=== PATIENT | male | born 1960 | race Caucasian/White ===

== ENCOUNTER 2019-08-10 15:10 | Inpatient (IN) | payer MEDICARE, MEDICAID, SELFPAY ==
[2019-08-10] VITALS (52 sets, daily range): BP systolic 64–154; BP diastolic 37–74; PULSE 84–125; RESP 6–26; TEMP 37.3–39.4; O2SAT 88–94; BMI 36.3
--- NOTE | 2019-08-10 16:03 | XRR_ITS ---
PROCEDURE INFORMATION: Exam: XR Chest, 1 View Exam date and time: 08/10/2019 4:20 PM Age: 58 years old Clinical indication: Shortness of breath; Additional info: Sepsis TECHNIQUE: Imaging protocol: XR of the chest Views: 1 view. COMPARISON: No relevant prior studies available. FINDINGS: Lungs: Mild elevation of the right hemidiaphragm. No focal consolidation. No pulmonary edema. Pleural space: No pleural effusion. No pneumothorax. Heart/Mediastinum: The cardiac silhouette is mildly enlarged. Mediastinal contours are unremarkable. Vasculature: Vascular calcifications in the aorta. Bones/joints: Unremarkable for age. XR/XR chest 1V portable [id number] IMPRESSION: 1. No acute cardiopulmonary process. 2. Incidental/nonacute findings are listed in the report.
--- NOTE | 2019-08-10 16:03 | CTR_ITS ---
PROCEDURE INFORMATION: Exam: CT Left Lower Extremity With Contrast; Lower Leg Exam date and time: 08/10/2019 4:47 PM Age: 58 years old Clinical indication: Cellulitis; Lower leg; Left; Additional info: Cellulitis, ? osteo, ? nec fasc TECHNIQUE: Imaging protocol: CT of the Left lower extremity with intravenous contrast was performed. Exam focused on the lower leg. 3D rendering: MIP reconstructed images were created and reviewed. Radiation optimization: All CT scans at this facility use at least one of these dose optimization techniques: automated exposure control; mA and/or kV adjustment per patient size (includes targeted exams where dose is matched to clinical indication); or iterative reconstruction. Contrast material: OMNI 300; Contrast volume: 95 ml; Contrast route: INTRAVENOUS (IV); COMPARISON: No relevant prior studies available. RADIATION DOSE METRICS: Total DLP (mGy-cm): 1443.17 FINDINGS: Bones/joints: No acute fracture. No dislocation. Degenerative changes at the left knee, left ankle, and left foot. No lytic or sclerotic bony lesions. Soft tissues: [id number] subcutaneous and soft tissue edema around the ankle and the foot, suspicious for cellulitis/soft tissue infection. No loculated fluid collections to suggest an abscess. Multiple small foci of soft tissue and subcutaneous emphysema at the plantar surface of the hindfoot and extending superior and medial to the calcaneus (series 5, images 197-211). Findings raise suspicion for necrotizing fasciitis. Multiple foci of amorphous calcification in the left calf and left foot. Findings may represent sequela of remote trauma. CT/CT lower leg LT w con [id number] IMPRESSION: 1. Findings suspicious for necrotizing fasciitis at the plantar surface of the left hindfoot and extending superior and medial to the left calcaneus. 2. Findings suspicious for cellulitis involving the left ankle and left foot. No abscess. 3. No evidence for osteomyelitis. MRI without and with contrast may be obtained if there is continuing clinical concern for osteomyelitis. If the patient has any contradiction for MRI, 3 phase bone scan in conjunction with white blood cell scan may be obtained. 4. Incidental/nonacute findings are listed in the report. Radiation Dose CTDIVOL = (mGy): DLP = 1443.17 (mGy-cm)
[2019-08-10 16:26] LABS: Basophils # 0.1 10^3/uL (0.0-0.1); Basophils % 0.2 %; Hemoglobin 15.6 g/dL (11.7-16.6); Lymphocytes # 0.8 10^3/uL (0.8-4.8); Lymphocytes % 3.8 %; Mean Corpuscular HGB Conc 33.9 g/dL (30.0-36.0); Mean Corpuscular Hemoglobin 31.4 pg (28.0-34.0); Mean Corpuscular Volume 92.6 fL (80-94); Mean Platelet Volume 10.6 fL (7.4-10.4); Monocytes # 1.3 10^3/uL (0.2-0.9); Monocytes % 6.5 %; Nucleated Red Blood Cells % 0 %; Platelet Count 268 10^3/cmm (130-400); Red Blood Count 4.97 10^6/uL (4.1-5.3); Red Cell Distribution Width 12.6 % (12.1-15.1); White Blood Count 20.3 10^3/uL (4.0-10.0)
[2019-08-10] MEDS: piperacillin-tazobactam 3.375 GM in sodium chloride 0.9% (plus) 50 ML IV (16:37)
[2019-08-10 16:40] LABS: Alanine Aminotransferase 10 U/L (0-41); Albumin Level 4.2 g/dL (3.5-5.2); Alkaline Phosphatase 128 IU/L (40-130); Anion Gap 19.4 (5-19); Aspartate Amino Transferase 16 U/L (0-40); Blood Urea Nitrogen 20 mg/dL (6-20); C Reactive Protein 210.9 mg/L (0.0-4.9); Calcium 9.9 mg/dL (8.5-10.5); Carbon Dioxide 26 mmol/L (22-29); Chloride 88 mmol/L (98-107); Globulin 4.2 g/dL (1.3-4.6); Glomerular Filtration Rate 56.5 mL/min (90-130); Glucose 444 mg/dL (65-115); Osmolality Calculated 284 mOsm/kg (285-295); Potassium 4.4 mmol/L (3.5-5.1); Sodium 129 mmol/L (136-145); Total Bilirubin 0.9 mg/dL (0.15-1.2); Total Protein 8.4 g/dL (6.6-8.7)
[2019-08-10 16:41] LABS: Lactate (Lactic Acid level) 2.6 mmol/L (0.5-2.2)
--- NOTE | 2019-08-10 16:44 | ED_ITS ---
HPI - Allergic Reaction General: Chief complaint: Allergic Reaction Stated complaint: stepped on nail Time Seen by Provider: 08/10/19 15:49 Source: patient Mode of arrival: ambulatory Limitations: no limitations History of Present Illness: HPI narrative: 58-year-old gentleman who is a diabetic with peripheral neuropathy presents to the emergency department with chills, rigor, and feeling unwell. He is a poorly controlled diabetic and about 2 days ago he stepped on a nail without knowing it. The nail was in his foot, left foot for about 2 days before his noticed. No nausea or vomiting. MD complaint: other (chills) Associated symptoms: Deny abdominal pain, nausea or vomiting Review of Systems General: Reports: 10 or more systems reviewed and unremarkable except in HPI and below Const: Reports: fever(s), chills and body aches Card: Denies: palpitations, irregular heart rhythm, edema or swelling of feet/ankles Resp: Denies: dyspnea, productive cough or non-productive cough GI: Denies: abdominal pain, nausea or vomiting : Denies: flank pain, dysuria, urinary frequency, urinary urgency or urinary hesitancy Musc: Denies: neck pain, back pain or extremity swelling Skin/Breast: Denies: rash, pruritus or erythema Neuro: Denies: headache(s), numbness in extremities or weakness in extremities Endo: Denies: polyuria, polydipsia or tired all the time PFSH ED PFSH: Medical History (Updated 08/10/19 @ 22:03 by Hannah Root MD, [facility] [place]) CKD stage 2 due to type 2 diabetes mellitus Diabetes mellitus with hyperglycemia, with long-term current use of insulin Diabetic peripheral neuropathy associated with type 2 diabetes mellitus History of stroke hx of embolic CVA in 2006 Hypercholesteremia Hypertension Morbid obesity Surgical History (Updated 08/10/19 @ 19:11 by Olive Aguilar MD) Amputation of right index finger in 2010 History of amputation of right foot History of knee surgery bilateral Family History Father CAD (coronary artery disease) Mother Diabetes Other Stroke Social History (Updated 08/10/19 @ 19:01 by Olive Aguilar MD) Smoking and tobacco status: current every day smoker smokeless tobacco Alcohol intake: never Lives independently: Yes Marital status: History of recent travel: No Physical Exam Const: COMMON NORMALS: no acute distress, average body habitus, patient oriented x3, no limitations, healthy appearing, alert and well nourished GENERAL APPEARANCE: ill appearing HENMT: COMMON NORMALS: normocephalic, atraumatic and moist oral mucous membranes HEAD & SCALP: normocephalic and atraumatic Eye: COMMON NORMALS: Equal, round and reactive pupils present, EOMs intact bilaterally, conjunctivae normal and no scleral icterus CONJUNCTIVA: Yes conjunctivae normal PUPIL: Yes Equal, round and reactive pupils present Resp: COMMON NORMALS: normal respiratory effort, No retractions, No use of accessory muscles, clear to auscultation bilaterally and percussion normal AUSCULTATION: clear to auscultation bilaterally PERCUSSION: percussion normal Cardio: COMMON NORMALS: regular rate, regular rhythm, S1 normal heart sound present, S2 normal heart sound present, No gallops present (Cardio), No clicks present (Cardio), No murmurs present (Cardio), No rub (Cardio) and Peripheral pulses 2+ throughout RATE: regular rate RHYTHM: regular rhythm HEART SOUNDS: S1 normal heart sound present and S2 normal heart sound present PERIPHERAL PULSES: Peripheral pulses 2+ throughout GI: COMMON NORMALS: Normal to inspection, nondistended, normoactive bowel sounds present, Soft to palpation, non-tender, No hepatosplenomegaly present, no masses and no bruits PALPATION: Yes Soft to palpation and Yes No hepatosplenomegaly present : COMMON NORMALS: Yes no CVA tenderness BLADDER/KIDNEY EXAM: Yes no CVA tenderness Back/Pelvis: COMMON NORMALS: no CVA tenderness Extremity: COMMON NORMALS: full ROM, capillary refill normal and no pedal edema NARRATIVE EXTREMITY EXAM: Left lower extremity is larger than the right lower extremity. There is increased warmth in the left lower extremity compared to the right. He has a puncture wound to be heel of his left foot. There is surrounding erythema and some crepitus palpated on the plantar surface of his heel. No drainage from the puncture wound. LEFT LOWER EXTREMITY: Yes lower leg Neuro: COMMON NORMALS: patient oriented x3 SENSORIUM/ORIENTATION: Yes alert Skin: COMMON NORMALS: no rashes or lesions noted, turgor normal, no jaundice, no petechiae and no mottling GENERAL SKIN EXAM: no rashes or lesions noted and turgor normal Course Consultations: Consultation #1: Dr. Mehta, who's supervisor home restoration service for foot and ankle. She states that she does not perform surgery for necrotizing fasciitis so we need to get the general surgeon to do the surgery Time: 18:30 Consultation #2: Dr. Bush, surgeon. He kindly accepted to take the patient to surgery today. But have the hospitalist admit the patient. Time: 18:34 Consultation #3: Dr. Aguilar, hospitalist. She kindly accepted the patient to her service. Time: 18:38 Vital Signs: Vital signs: Vital Signs Temperature 99.3 F 08/10/19 20:15 Pulse Rate 96 08/10/19 21:20 Respiratory Rate 7 L 08/10/19 21:20 Blood Pressure 64/42 08/10/19 21:20 Pulse Oximetry 91 08/10/19 21:20 MDM - Allergic Reaction MDM Narrative: Medical decision making narrative: 58-year-old diabetic patient who presents with features consistent with necrotizing fasciitis. He was taken emergently to the OR for surgical debridement and subsequent admission to the ICU. He is septic. Medical Records: Attestation: I reviewed the patient's medical records. Lab Data: Attestation: I reviewed the patient's lab results. Labs: Lab Results 08/10/19 08/10/19 08/10/19 Range/Units 16:15 16:15 16:15 WBC 20.3 H (4.0-10.0) 10^3/ uL RBC 4.97 (4.1-5.3) 10^6/u L Hgb 15.6 (11.7-16.6) g/dL Hct 46.0 (42.0-52.0) % MCV 92.6 (80-94) fL MCH 31.4 (28.0-34.0) pg MCHC 33.9 (30.0-36.0) g/dL RDW 12.6 (12.1-15.1) % Plt Count 268 (130-400) 10^3/c mm MPV 10.6 H (7.4-10.4) fL Neut % (Auto) 89.0 % Lymph % (Auto) 3.8 % Wise % (Auto) 6.5 % Eos % (Auto) 0.0 % Baso % (Auto) 0.2 % Neut # (Auto) 18.0 H (1.8-7.7) 10^3/u L Lymph # (Auto) 0.8 (0.8-4.8) 10^3/u L Wise # (Auto) 1.3 H (0.2-0.9) 10^3/u L Eos # (Auto) 0.0 (0.0-0.8) 10^3/u L Baso # (Auto) 0.1 (0.0-0.1) 10^3/u L Nucleated RBC % (a uto) 0 % Nucleated RBCs # 0.0 /100WBC Sodium 129 L (136-145) mmol/L Potassium 4.4 (3.5-5.1) mmol/L Chloride 88 L (98-107) mmol/L Carbon Dioxide 26 (22-29) mmol/L Anion Gap 19.4 H (5-19) BUN 20 (6-20) mg/dL Creatinine 1.3 H (0.7-1.2) mg/dL GFR Calculation 56.5 L (90-130) mL/min Glucose 444 H (65-115) mg/dL POC Glucose (70-110) mg/dL Calculated Osmolal ity 284 L (285-295) mOsm/k g Lactate 2.6 H (0.5-2.2) mmol/L Calcium 9.9 (8.5-10.5) mg/dL Total Bilirubin 0.9 (0.15-1.2) mg/dL AST 16 (0-40) U/L ALT 10 (0-41) U/L Alkaline Phosphata se 128 (40-130) IU/L C-Reactive Protein 210.9 H (0.0-4.9) mg/L Total Protein 8.4 (6.6-8.7) g/dL Albumin 4.2 (3.5-5.2) g/dL Globulin 4.2 (1.3-4.6) g/dL 08/10/19 08/10/19 Range/Units 16:43 19:10 WBC (4.0-10.0) 10^3/ uL RBC (4.1-5.3) 10^6/u L Hgb (11.7-16.6) g/dL Hct (42.0-52.0) % MCV (80-94) fL MCH (28.0-34.0) pg MCHC (30.0-36.0) g/dL RDW (12.1-15.1) % Plt Count (130-400) 10^3/c mm MPV (7.4-10.4) fL Neut % (Auto) % Lymph % (Auto) % Wise % (Auto) % Eos % (Auto) % Baso % (Auto) % Neut # (Auto) (1.8-7.7) 10^3/u L Lymph # (Auto) (0.8-4.8) 10^3/u L Wise # (Auto) (0.2-0.9) 10^3/u L Eos # (Auto) (0.0-0.8) 10^3/u L Baso # (Auto) (0.0-0.1) 10^3/u L Nucleated RBC % (a uto) % Nucleated RBCs # /100WBC Sodium (136-145) mmol/L Potassium (3.5-5.1) mmol/L Chloride (98-107) mmol/L Carbon Dioxide (22-29) mmol/L Anion Gap (5-19) BUN (6-20) mg/dL Creatinine (0.7-1.2) mg/dL GFR Calculation (90-130) mL/min Glucose (65-115) mg/dL POC Glucose 389 270 (70-110) mg/dL Calculated Osmolal ity (285-295) mOsm/k g Lactate (0.5-2.2) mmol/L Calcium (8.5-10.5) mg/dL Total Bilirubin (0.15-1.2) mg/dL AST (0-40) U/L ALT (0-41) U/L Alkaline Phosphata se (40-130) IU/L C-Reactive Protein (0.0-4.9) mg/L Total Protein (6.6-8.7) g/dL Albumin (3.5-5.2) g/dL Globulin (1.3-4.6) g/dL Critical Care Time Critical Care Time: Critical Care Time: Yes Total Critical Care Time: 30 Attestation: This case had a high probability of a clinically significant, sudden, or life threatening deterioration of this patient's condition which required my full and direct attention, intervention and personal management. Discharge Plan Discharge Patient Disposition: Admitted As Inpatient Admit Provider: Olive Aguilar Clinical Impression: Necrotizing fasciitis Sepsis Qualifiers: Sepsis type: sepsis due to unspecified organism Sepsis acute organ dysfunction status: without acute organ dysfunction Qualified Code(s): A41.9 - Sepsis, unspecified organism Condition: Stable Interventions: ED Discharge Assessment Last Done: 08/10/19 19:05 ED Charges Last Done: 08/10/19 19:05 Discharge Date/Time: 08/10/19 19:00 Coding Level of Care Code ED Match Up Person for Chg Fwd Exam Comprehensive
[2019-08-10 16:46] LABS: Glucose Point of Care 389 mg/dL (70-110)
[2019-08-10] MEDS: iohexol 300 mg/mL 100 mL Btl 95 ML IV (17:19)
[2019-08-10] MEDS: levofloxacin-dextrose 5 % 750 MG/150 ML PREMIX 100 MG IV (17:46)
[2019-08-10] MEDS: sodium chloride 0.9% 1,000 ML 999 ML IV (17:47)
--- NOTE | 2019-08-10 18:35 | PM.CONSULT ---
Providers/Reason For Consult Consulting Physican/Specialty*: Jose Bush MD Reason for Consult*: Left diabetic foot infection with associated necrotizing soft tissue infection Requesting Physcian: Dr Johnson Attending Physician: Jose Bush MD Primary Care Provider: Thuan Hanks MD History of Present Illness History of Present Illness Chief Complaint: My left foot hurts History of present illness: Mr Yoandy Clemens III is a pleasant 58 year old male obese with associated multiple medical comorbidities including diabetes mellitus type 2, hypertension, hyperlipidemia and other associated medical comorbidities including history of transmetatarsal amputation of the right foot due to complicated diabetic foot infection, presents today to the emergency department with worsening symptoms of left foot as he stepped on a nail couple of days ago as his symptoms got worse he came to the ER seeking medical advice and further work-up showed that the patient has necrotizing soft tissue infection per CT scan images no evidence of retained foreign bodies, general surgery was consulted for further evaluation and potential management. Patient reports fevers at home and at the ER was recorded to be 103 Patient was seen in the emergency department in room(8) ED scan left lower extremity showed: FINDINGS: Bones/joints: No acute fracture. No dislocation. Degenerative changes at the left knee, left ankle, and left foot. No lytic or sclerotic bony lesions. Soft tissues: [id number] subcutaneous and soft tissue edema around the ankle and the foot, suspicious for cellulitis/soft tissue infection. No loculated fluid collections to suggest an abscess. Multiple small foci of soft tissue and subcutaneous emphysema at the plantar surface of the hindfoot and extending superior and medial to the calcaneus (series 5, images 197-211). Findings raise suspicion for necrotizing fasciitis. Multiple foci of amorphous calcification in the left calf and left foot. Findings may represent sequela of remote trauma. CT/CT lower leg LT w con [id number] IMPRESSION: 1. Findings suspicious for necrotizing fasciitis at the plantar surface of the left hindfoot and extending superior and medial to the left calcaneus. 2. Findings suspicious for cellulitis involving the left ankle and left foot. No abscess. 3. No evidence for osteomyelitis. MRI without and with contrast may be obtained if there is continuing clinical concern for osteomyelitis. If the patient has any contradiction for MRI, 3 phase bone scan in conjunction with white blood cell scan may be obtained. 4. Incidental/nonacute findings are listed in the report. Patient had arterial duplex back in 2017 that showed: Supernormal resting ABIs bilaterally PVR waveforms showing some blunting of dicrotic notch with a normal amplitude CONCLUSIONS Features may suggest mild peripheral arterial disease with no significant obstruction Patient is not updated on tetanus and I did ask the ER team to update the patient with prior to surgery. Review of Systems General: Reports: 10 or more systems reviewed and unremarkable except in HPI and below Meds/Allergies Home Medications and Allergies Home Medications Medication Instructions Recorded Confirmed Last Taken Type aspirin 325 mg tablet 325 mg PO DAILY 05/09/19 08/10/19 08/10/19 History gabapentin 800 mg tablet 800 mg PO BID 05/09/19 08/10/19 08/10/19 History hydrocodone 5 mg-acetaminophen 325 1 tab PO TID PRN 05/09/19 08/10/19 08/10/19 History mg tablet linagliptin 5 mg tablet 5 mg PO DAILY #90 tab 05/09/19 08/10/19 08/10/19 Rx lisinopril 20 mg tablet 20 mg PO DAILY 05/09/19 08/10/19 08/10/19 History paroxetine HCl 20 mg tablet 20 mg PO BID tab 05/09/19 08/10/19 08/10/19 History pravastatin 40 mg tablet 40 mg PO DAILY 05/09/19 08/10/19 08/09/19 History insulin aspar prot-insulin aspart 30 unit SUBCUT BID 30 Days #18 ml 08/08/19 08/10/19 08/10/19 Rx 100 unit/mL (70-30) subcutaneous pen insulin glargine 100 unit/mL (3 40 unit SUBCUT DAILY 30 Days #15 ml 08/08/19 08/10/19 08/10/19 Rx mL) subcutaneous pen Allergies Allergy/AdvReac Type Severity Reaction Status Date / Time sulfamethoxazole Allergy ALGY-Rash Verified 08/10/19 18:38 [From Bactrim] trimethoprim [From Bactrim] Allergy ALGY-Rash Verified 08/10/19 18:38 vancomycin Allergy ALGY-Rash Verified 08/10/19 18:38 Current Medications Current Medications Generic Name Dose Route Start Last Admin Trade Name Freq PRN Reason Stop Dose Admin Sodium Chloride 1,000 mls @ 999 mls/hr 08/10/19 17:00 08/10/19 17:47 Sodium Chloride 0.9% IV 08/10/19 19:00 999 mls/hr .Q1H1M LASHELL Administration PFSH Acute PFSH: Medical History (Updated 08/10/19 @ 19:00 by Olive Aguilar MD) Diabetes mellitus with hyperglycemia, with long-term current use of insulin Diabetic peripheral neuropathy associated with type 2 diabetes mellitus History of stroke hx of embolic CVA in 2006 Hypercholesteremia Hypertension Morbid obesity Surgical History (Updated 08/10/19 @ 19:00 by Olive Aguilar MD) Amputation of right index finger in 2010 History of amputation of right foot History of knee surgery bilateral Family History Father CAD (coronary artery disease) Mother Diabetes Other Stroke Social History (Updated 08/10/19 @ 19:01 by Olive Aguilar MD) Smoking and tobacco status: current every day smoker smokeless tobacco Alcohol intake: never Lives independently: Yes Marital status: History of recent travel: No Vitals/I&O/Wt Last Vital Signs Temp 103.0 F H 08/10/19 17:46 Pulse 112 H 08/10/19 17:46 Resp 22 H 08/10/19 17:46 BP 100/60 08/10/19 17:46 Pulse Ox 88 L 08/10/19 18:05 Weight last 48 hrs Weight 268 lb Physical Exam Narrative: EXAM NARRATIVE: Patient is conscious alert oriented X3 BMI 36 Head and neck examination PERRLA no masses no cervical lymphadenopathy no jaundice Cardiac examination audible S1-S2 no murmurs no gallops no arrhythmias Chest is clear bilateral,abscence of Rhonchi or wheezes,no surgical emphysema Abdomen nontender nondistended soft no organomegaly guarding or rigidity/no signs of peritonitis Right metatarsal amputation without complication Left foot shows cellulitic changes towards the left calcaneal region 5 x 7 cm in diameter, tender to touch with a central scab likely the site of the nail penetrated, clinically no detected crepitus. 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 Left dorsalis pedis and posterior tibial arteries palpable +2 Capillary refill less than 2-second Data Micro: Micro: Microbiology 08/10/19 16:27 Blood Culture - Pr eliminary Blood SPECIMEN [facility] 06/20/20 16:15 Blood Culture - Pr eliminary Blood SPECIMEN [facility] A&P Assessment and plan (1) Necrotizing soft tissue infection: After thorough history physical examination and reviewing the chart and images with my personal interpretation of the CT scan I did grief counsellor the patient for incision and drainage of left diabetic foot infection including an abscess clinically appreciated and necrotizing soft tissue changes. Patient understands the potential risks benefits indications and alternatives and also understand the potential need for future surgical interventions and the potential complication that can lead to amputee. Given the fact that the patient has leukocytosis and has been tachycardic and running fevers of [address] to the CT scan findings I will elect to take the patient urgently to the OR for surgical debridement. I appreciate Dr. Aguilar's input for medical management of patient's medical comorbidities including diabetes mellitus Recommend highly to start the patient on broad-spectrum antibiotic Status: Acute Consult Attestations Medical Necessity Statement: Per hospitalist Time Spent in Patient Care: (>than 50% of time spent in counselling and/or direct pt care on unit). Coding Level of Care Code Acute Obstetrical Tech for Curtis Elliott Diagnoses Necrotizing soft tissue infection M79.89
[2019-08-10] MEDS: tetanus-diphtheria tox (adult) 0.5 mL SDV IM (18:52)
--- NOTE | 2019-08-10 18:56 | P.HP_ITS ---
Providers/Chief Complaint Admitting Physician: Olive Aguilar MD Primary Care Provider: Thuan Hanks MD Chief Complaint: stepped on nail History of Present Illness Yoandy Clemens III is a 58 year old male with PMHx of IDDM type II complicated by peripheral neuropathy, CKD stage 2, Morbid obesity, HTN, Dyslipidemia; presents from home for evaluation of elevated blood glucose as well as increasing left foot pain, swelling and redness. He reports having stepped on a nail approximat cherry 2 days ago but due to diminished sensation in his feet did not realize this at that time until later in the day when he took off his shoes and socks and noticed a wound at the bottom of his foot. Since then the foot has had increased redness, swelling, and pain with weight-bearing. His ex- gave him a dose of amoxicillin that she had left over as well as a dose of hydrocodone for pain control. On checking his blood sugars today he was up in the 400-500 range which is significantly higher than his baseline of 180s to 200s. He has not been feeling well and has had fever/chills though has not checked his temperature at home. He is somewhat lethargic during my assessment in the ER, e x- is at bedside providing some collateral information. Work-up so far has revealed significant leukocytosis with a white count of 20.3, hemoglobin of 15.6, sodium of 129, BUN of 20, creatinine of 1.3, blood glucose of 444, lactate of 2.6, CRP of 210.9. He is hypotensive, tachycardic, and febrile with a T-max of 103F thereby noted to be septic. Chest x-ray is unremarkable, CT of the left lower extremity shows findings consistent with cellulitis and suspicion for necrotizing fasciitis. ER physician has contacted Dr. Bush who is at bedside currently and will take the patient emergently for an incision and drainage of the left foot. So far patient has received a dose of Levaquin and Zosyn, 2 L NS bolus. Due to need for continued resuscitation, sepsis and need for improved blood glucose control patient will be admitted to the ICU for closer monitoring. Review of Systems Const: Reports: change in appetite (decreased appetite) and fatigue; Denies: fever(s) or chills Eyes: Denies: change in vision ENMT: Reports: dry mouth Card: Denies: chest pain, swelling of feet/ankles or lightheadedness Resp: Reports: productive cough (green sputum); Denies: dyspnea GI: Denies: abdominal pain, nausea, vomiting, hematemesis or hematochezia : Reports: urinary frequency; Denies: dysuria Musc: Denies: back pain Skin/Breast: Denies: rash Neuro: Reports: weakness in extremities; Denies: numbness in extremities Psych: Denies: anxiety Medications/Allergies Home Medications Medication Instructions Recorded Confirmed Last Taken Type aspirin 325 mg tablet 325 mg PO DAILY 05/09/19 08/10/19 08/10/19 History gabapentin 800 mg tablet 800 mg PO BID 05/09/19 08/10/19 08/10/19 History hydrocodone 5 mg-acetaminophen 325 1 tab PO TID PRN 05/09/19 08/10/19 08/10/19 History mg tablet linagliptin 5 mg tablet 5 mg PO DAILY #90 tab 05/09/19 08/10/19 08/10/19 Rx lisinopril 20 mg tablet 20 mg PO DAILY 05/09/19 08/10/19 08/10/19 History paroxetine HCl 20 mg tablet 20 mg PO BID tab 05/09/19 08/10/19 08/10/19 History pravastatin 40 mg tablet 40 mg PO DAILY 05/09/19 08/10/19 08/09/19 History insulin aspar prot-insulin aspart 30 unit SUBCUT BID 30 Days #18 ml 08/08/19 08/10/19 08/10/19 Rx 100 unit/mL (70-30) subcutaneous pen insulin glargine 100 unit/mL (3 40 unit SUBCUT DAILY 30 Days #15 ml 08/08/19 08/10/19 08/10/19 Rx mL) subcutaneous pen Allergies Allergy/AdvReac Type Severity Reaction Status Date / Time sulfamethoxazole Allergy ALGY-Rash Verified 08/10/19 18:38 [From Bactrim] trimethoprim [From Bactrim] Allergy ALGY-Rash Verified 08/10/19 18:38 vancomycin Allergy ALGY-Rash Verified 08/10/19 18:38 PFSH Acute PFSH: Medical History (Updated 08/10/19 @ 19:17 by Olive Aguilar MD) CKD stage 2 due to type 2 diabetes mellitus Diabetes mellitus with hyperglycemia, with long-term current use of insulin Diabetic peripheral neuropathy associated with type 2 diabetes mellitus History of stroke hx of embolic CVA in 2006 Hypercholesteremia Hypertension Morbid obesity Surgical History (Updated 08/10/19 @ 19:11 by Olive Aguilar MD) Amputation of right index finger in 2011 History of amputation of right foot History of knee surgery bilateral Family History Father CAD (coronary artery disease) Mother Diabetes Other Stroke Social History (Updated 08/10/19 @ 19:01 by Olive Aguilar MD) Smoking and tobacco status: current every day smoker smokeless tobacco Alcohol intake: never Lives independently: Yes Marital status: History of recent travel: No Vitals/I&O/Wt Last Vital Signs Temp 103.0 F H 08/10/19 17:46 Pulse 112 H 08/10/19 17:46 Resp 22 H 08/10/19 17:46 BP 100/60 08/10/19 17:46 Pulse Ox 88 L 08/10/19 18:05 Weight last 48 hrs Weight 121.563 kg Physical Exam Const: COMMON NORMALS: no acute distress GENERAL APPEARANCE: cooperative, comfortable and ill appearing (somewhat) NUTRITIONAL APPEARANCE: obese morbidly obese ORIENTATION/CONSCIOUSNESS: Yes lethargic HENMT: COMMON NORMALS: normocephalic, atraumatic and hearing grossly normal bilaterally HEAD & SCALP: normocephalic and atraumatic MOUTH: moist mucous membranes abnormal Details: parched Eye: COMMON NORMALS: Equal, round and reactive pupils present, EOMs intact bilaterally and conjunctivae normal CONJUNCTIVA: Yes conjunctivae normal PUPIL: Yes Equal, round and reactive pupils present Neck/C-Spine: COMMON NORMALS: full ROM GENERAL: Yes normal visual inspection and Yes trachea midline Chest: CHEST: Yes Symmetrical chest wall rise Resp: COMMON NORMALS: normal respiratory effort, No retractions, No use of accessory muscles and clear to auscultation bilaterally EFFORT & INSPECTION: Yes able to speak in complete sentences, Yes symmetric chest movement and No tachypneic AUSCULTATION: clear to auscultation bilaterally OTHER: -on RA Cardio: COMMON NORMALS: regular rhythm, S1 normal heart sound present, S2 normal heart sound present and No murmurs present (Cardio) RATE: tachycardic RHYTHM: regular rhythm HEART SOUNDS: S1 normal heart sound present and S2 normal heart sound present GI: COMMON NORMALS: Normal to inspection, nondistended, normoactive bowel sounds present, Soft to palpation and non-tender INSPECTION: Yes central obesity PALPATION: Yes Soft to palpation Back/Pelvis: COMMON NORMALS: thoracic and lumbar spine normal to inspection Extremity: COMMON NORMALS: normal to inspection, full ROM and no clubbing, cyanosis or edema; negative for no pedal edema NARRATIVE EXTREMITY EXAM: -s/p R foot amputation -L foot: well-circumscribed puncture wound with surrounding erythema, warmth to touch; no fluctuance, no drainage, no odor; some streaking up just below medial ankle; diminished sensation (peripheral neuropathy) Neuro: COMMON NORMALS: moves all extremities, no focal motor deficits and no sensory deficits noted SENSORIUM/ORIENTATION: Yes lethargic Psych: COMMON NORMALS: mental status grossly normal, Normal thought process present, cooperative, normal affect and speech normal SPEECH: Yes normal speech THOUGHT PROCESS: Normal thought process present Skin: COMMON NORMALS: no rashes or lesions noted, no jaundice, no petechiae an d no mottling GENERAL SKIN EXAM: no rashes or lesions noted WOUNDS: Yes wounds noted (L foot) Sepsis: Is patient septic: Yes Focused sepsis exam performed: Yes Date exam was performed: 08/10/19 Time exam was performed: 18:30 Data : 08/10/19 16:15 08/10/19 16:15 Micro: Microbiology 08/10/19 16:27 Blood Culture - Preliminary Blood SPECIMEN COLLECTED 08/10/19 16:15 Blood Culture - Preliminary Blood SPECIMEN COLLECTED A&P Assessment and plan (1) Necrotizing soft tissue infection: -noted L foot pain, edema, erythema after puncture wound (stepped on a nail) 2 days ago -CRP-210.6; noted leukocytosis with neutrophilic predominance, lactic acidosis, tachycardic, hypotensive, febrile (103 F), tachypnea so currently septic -imaging reviewed with noted suspicion for necrotizing fasciitis at plantar surface of left hindfoot and extending to superiorly and medially the left calcaneus as well as cellulitis involving the left ankle and left foot, no noted evidence of abscess or osteomyelitis -Surgery consult by Dr. Bush appreciated; will be taken to the OR this evening -has received dose of Levaquin, Zosyn; continue broad-spectrum IV antibiotics -Tetanus dose given -Resuscitation with 2 L IVF; continue maintenance IVF hydration -f/u blood cx -trend WBC -close monitoring of vital signs -pain control as needed -PT evaluation tomorrow; NWB LLE Status: Acute (2) Diabetes mellitus with hyperglycemia, with long-term current use of insulin: -check A1c -Accucheks, ISS, scheduled insulin, hypoglycemia precautions -consistent carb diet as tolerated post-op -hold oral hypoglycemics -anticipate hyperglycemia with active infection Status: Chronic Qualifiers: Diabetes mellitus type: type 2 Qualified Code(s): E11.65 - Type 2 diabetes mellitus with hyperglycemia; Z79.4 - intermediate teacher (current) use of insulin (3) Diabetic peripheral neuropathy associated with type 2 diabetes mellitus: -resume gabapentin Status: Chronic (4) TASIA (acute kidney injury): -TASIA on CKD stage 2 -IVF hydration -monitor renal function, avoid nephrotoxins, renally dose meds Status: Acute (5) Morbid obesity: -BMI-36 kg/m2 Status: Chronic (6) Hypertension: -hypotensive currently and receiving fluid resuscitation -hold ACEi due to hypotension and renal impairment -monitor vital signs Status: Chronic Qualifiers: Hypertension type: essential hypertension Qualified Code(s): I10 - Essential (primary) hypertension (7) History of stroke: -resume ASA post op -resume statin Status: Chronic (8) Hypercholesteremia: -resume statin Status: Chronic (9) History of transmetatarsal amputation of right foot: Status: Chronic (10) Onychodystrophy: Status: Chronic (11) CKD stage 2 due to type 2 diabetes mellitus: -CKD stage 2, baseline Cr wnl Status: Chronic Additional A&P Information -Hyponatremia, increased AG; on IVF, repeat labs in AM -GI ppx with PPI -DVT ppx with heparin -Dispo: home; likely with HH -Code status: FULL code -ICU admission due to sepsis, need for continued fluid resuscitation Attestations Medical Necessity Statement*: Yoandy Clemens III's hospital stay will require greater than 2 midnights for management of left foot necrotizing soft tissue i nfection with associated sepsis requiring IV fluid hydration, broad-spectrum IV antibiotic coverage and emergent incision and drainage. Time Spent in Patient Care: Greater than 35 minutes (>than 50% of time spent in counselling and/or direct pt care on unit) . Coding Level of Care Code Acute Dispatcher Maintenance for Chg Fwd Diagnoses Necrotizing soft tissue infection M79.89 Diabetes mellitus with hyperglycemia, with long-term current use of insulin E11.65; Z79.4 Diabetes mellitus type: type 2 Diabetic peripheral neuropathy associated with type 2 diabetes mellitus E11.42 TASIA (acute kidney injury) N17.9 Morbid obesity E66.01 Hypertension I10 Hypertension type: essential hypertension History of stroke Z86.73 Hypercholesteremia E78.00 History of transmetatarsal amputation of right foot Z89.431 Onychodystrophy L60.3 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 Sepsis Event Note Evaluation Current stage of sepsis: sepsis Initial hypotension due to sepsis/infection: MAP < 65 mmHg Possible source: skin/soft tissue and wound (Left foot) Focused Exam Vital Signs Temp Pulse Pulse Resp BP BP Pulse Ox 08/10/19 18:05 88 L 08/10/19 17:46 103.0 F H 112 H 22 H 100/60 94 08/10/19 15:37 103 F H 125 H 18 154/74 93 Respiratory exam: Present CTAB; Absent accessory muscle use Cardiovascular exam: Present S1, S2 and tachycardia Date exam was performed: 08/10/19 Time exam was performed: 19:16 Problem List (1) Necrotizing soft tissue infection: Status: Acute (2) Diabetic peripheral neuropathy associated with type 2 diabetes mellitus: Status: Chronic (3) Morbid obesity: Status: Chronic (4) History of transmetatarsal amputation of right foot: Status: Chronic (5) Onychodystrophy: Status: Chronic (6) Diabetes mellitus with hyperglycemia, with long-term current use of insulin: Status: Chronic (7) Hypertension: Status: Chronic (8) History of stroke: Status: Chronic Comment: hx of embolic CVA in 2006 (9) Hypercholesteremia: Status: Chronic (10) CKD stage 2 due to type 2 diabetes mellitus: Status: Chronic (11) TASIA (acute kidney injury): Status: Acute
--- NOTE | 2019-08-10 19:06 | ANES.PREANE2 ---
Pre-Anesthetic Assessment Pre-Anesthetic Assessment: Height/Weight: Height 1.83 m Weight 121.563 kg Temp Pulse Resp BP Pulse Ox 103.0 F H 112 H 22 H 100/60 88 L 08/10/19 17:46 08/10/19 17:46 08/10/19 17:46 08/10/19 17:46 08/10/19 18:05 Proposed Procedure: Operation Date: 08/10/19 19:10 Proposed Procedures p Debridement(Left) - Jose Bush MD Familial anesthetic complications: none Was Beta Philippe taken within 24 hours: N/A Last intake: milk at 1300. Soda at 1500 Social: Social History: Tobacco (chew in ED) and No alcohol Exam: Pre-Anes Outpt Exam: alert, oriented x 3, clear to auscultation bilaterally and regular rate & rhythm Airway: Submandibular: WNL Cervical ROM: WNL MP: 3 Dentition: Full (poor multiple chipped decayed) Pulmonary: Pulmonary: WOLFF and Sleep apnea CV/HEM: CV/HEM: HTN and PVD : : None reported Hepatic: Hepatic: None reported GI: GI: GERD (OTC meds controlled) Metabolic: Metabolic: DM Musc/skel: Musc/skel: Weakness Neuropsych: Neuropsych: CVA (2006. no residual) Anesthetic Plan: ASA status: 3E Anesthesia: Anesthesia Evaluation, General and MAC (versed and fentanyl and pt has neuropathy ) Risk of > 500 ml blood loss (7ml/kg in children): No PFSH Anesthesia PFSH: Medical History (Updated 08/10/19 @ 19:13 by Olive Aguilar MD) Diabetes mellitus with hyperglycemia, with long-term current use of insulin Diabetic peripheral neuropathy associated with type 2 diabetes mellitus History of stroke hx of embolic CVA in 2006 Hypercholesteremia Hypertension Morbid obesity Surgical History (Updated 08/10/19 @ 19:11 by Olive Aguilar MD) Amputation of right index finger in 2010 History of amputation of right foot History of knee surgery bilateral Family History Father CAD (coronary artery disease) Mother Diabetes Other Stroke Social History (Updated 08/10/19 @ 19:01 by Olive Aguilar MD) Smoking and tobacco status: current every day smoker smokeless tobacco Alcohol intake: never Lives independently: Yes Marital status: History of recent travel: No Data Anesthesia CBC & Chem 7: 08/10/19 16:15 08/10/19 16:15 Other Labs: Laboratory Results - last 48 hr 08/10/19 08/10/19 08/10/19 16:15 16:15 16:15 WBC 20.3 H RBC 4.97 Hgb 15.6 Hct 46.0 MCV 92.6 MCH 31.4 MCHC 33.9 RDW 12.6 Plt Count 268 MPV 10.6 H Neut % (Auto) 89.0 Lymph % (Auto) 3.8 [place] % (Auto) 6.5 Eos % (Auto) 0.0 Baso % (Auto) 0.2 Neut # (Auto) 18.0 H Lymph # (Auto) 0.8 [place] # (Auto) 1.3 H Eos # (Auto) 0.0 Baso # (Auto) 0.1 Nucleated RBC % (auto) 0 Nucleated RBCs # 0.0 Sodium 129 L Potassium 4.4 Chloride 88 L Carbon Dioxide 26 Anion Gap 19.4 H BUN 20 Creatinine 1.3 H GFR Calculation 56.5 L Glucose 444 H POC Glucose Calculated Osmolality 284 L Lactate 2.6 H Calcium 9.9 Total Bilirubin 0.9 AST 16 ALT 10 Alkaline Phosphatase 128 C-Reactive Protein 210.9 H Total Protein 8.4 Albumin 4.2 Globulin 4.2 08/10/19 16:43 WBC RBC Hgb Hct MCV MCH MCHC RDW Plt Count MPV Neut % (Auto) Lymph % (Auto) [place] % (Auto) Eos % (Auto) Baso % (Auto) Neut # (Auto) Lymph # (Auto) [place] # (Auto) Eos # (Auto) Baso # (Auto) Nucleated RBC % (auto) Nucleated RBCs # Sodium Potassium Chloride Carbon Dioxide Anion Gap BUN Creatinine GFR Calculation Glucose POC Glucose 389 Calculated Osmolality Lactate Calcium Total Bilirubin AST ALT Alkaline Phosphatase C-Reactive Protein Total Protein Albumin Globulin Micro: Microbiology 08/10/19 16:27 Blood Culture - Preliminary Blood SPECIMEN COLLECTED 08/10/19 16:15 Blood Culture - Preliminary Blood SPECIMEN COLLECTED Cardiac Studies: No Data to Display
[2019-08-10 19:14] LABS: Glucose Point of Care 270 mg/dL (70-110)
[2019-08-10] MEDS: lidocaine 2% INJ 20 mL INJECTION (19:41)
--- NOTE | 2019-08-10 19:51 | PM.OP ---
Operative Report Date of procedure: August 10, 2019 Pre-op Diagnosis: Left Diabetic foot soft tissue infection Post-op diagnosis: same (Left diabetic foot infection with abscess cavity with residual necrotic tissues) Post-op Findings: Pre-debridement wound 1 x 1 x0.2 cm at the site of the scab and penetration of the nail Post debridement measurements 4.5 x 1.5 x [address] to the muscular fascial planes Procedure Done: Incision and drainage of left diabetic foot abscess and sharp debridement of abscess cavity Specimens removed/disposition: Tissues were sent for cultures and sensitivity Tissues for pathology Surgeon: Jose Bush Architectural Intern: learning technologies specialist [employer] Circulating nurse Cher Anesthesia: MAC (Fentanyl and Versed) Estimated blood loss (mL): 5 Complications: No immediate complication Condition: stable Disposition: ICU Brief History: This is a pleasant 58 years old gentleman with history of diabetes mellitus type 2 who stepped on a nail couple of days ago and presented to the ER with worsening constitutional symptom, after thorough history physical exam and reviewing the chart and images with my percent repetition I offered the patient I&D of left diabetic foot infection in the OR and he agreed to proceed. Informed consent per chart Procedure: After identifying the patient holding area, the left lower extremity was marked before the procedure by myself, patient was then taken to the operative suite, was placed in supine position, IV antibiotics were given per protocol,IV fentanyl and Versed were infused by the anesthesia provider, prep and drape of the wound region including the whole left foot was done under the usual sterile technique. Time-out was done verifying the patient's name/date of /planned procedure and destination after the procedure, all were in agreement. Started by excising the unhealthy necrotic indurated tissues of the wound. Incision was created at the skin level and went all the way down to the subcutaneous tissues and muscle layer, wound was excised including unhealthy tissues, necrotic subcutaneous tissues were debrided sharply and tissues were sent for cultures and sensitivities I did extend the incision laterally and medially and there was tunneling cephalad and I had to debride more and at that point I decided to apply a vessel loop for future flossing and was tied down by 3-0 silk. Tissues also were sent for pathology, thorough irrigation was done Wound measurement ; Pre-debridement measurements 1 x 1 cm x 0.2cm at the dermal level Post debridement measurements 4.5 x 1.5 x [address] to the muscular fascial layer Irrigation of the wound was done with warm saline, followed by appropriate hemostasis, packing of the wound was done with mini Kerlix impregnated and lidocaine 2%, followed by ABDs, Kerlix and Avi wraps Patient tolerated the procedure well, count of instruments, needles and sponges were completed at the end of the procedure. Patient was then taken to the recovery area in stable condition. I was present for the whole entire procedure
[2019-08-10] MEDS: linezolid premix 600 MG/300 ML PREMIX 300 MG IV (20:52)
[2019-08-10] MEDS: sodium chloride 0.9% 1,000 ML 100 ML IV (20:54)
[2019-08-10] MEDS: sodium chloride 0.9% 1,000 ML 125 ML IV (20:55)
[2019-08-10] MEDS: heparin 5,000 unit/mL INJ 1 mL 5000 UNIT SUBCUT (20:55)
--- NOTE | 2019-08-10 21:40 | PC.NURSE ---
patient sleeping had bp of 59/44 map 53 normal saline bolus strted and Dr. Hyde called. levophed started a 6 mcg patient is still fully alert and oriented denies any sob or pain anywhere. glucose taken 195, insulin held due to patient taking large dose of humolog at home before coming to hospital.
[2019-08-11] VITALS (95 sets, daily range): BP systolic 67–160; BP diastolic 37–93; PULSE 88–179; RESP 7–36; TEMP 36.9–39.6; O2SAT 86–99
--- NOTE | 2019-08-11 00:05 | PC.NURSE ---
levophed had been initiated for hypotension, per order from Dr. Hyde normal saline bolus given for bp 59/43,
[2019-08-11] MEDS: piperacillin-tazobactam 3.375 GM in sodium chloride 0.9% (plus) 50 ML IV ×3 (00:08→16:22)
[2019-08-11 03:04] LABS: Glucose Point of Care 195 mg/dL (70-110)
[2019-08-11 03:53] LABS: Basophils % 0.2 %; Hematocrit 39.8 % (42.0-52.0); Hemoglobin 13.4 g/dL (11.7-16.6); Lymphocytes # 0.9 10^3/uL (0.8-4.8); Lymphocytes % 4.4 %; Mean Corpuscular HGB Conc 33.7 g/dL (30.0-36.0); Mean Corpuscular Hemoglobin 31.7 pg (28.0-34.0); Mean Corpuscular Volume 94.1 fL (80-94); Mean Platelet Volume 10.4 fL (7.4-10.4); Monocytes # 2.2 10^3/uL (0.2-0.9); Monocytes % 10.8 %; Neutrophils # 17.1 10^3/uL (1.8-7.7); Neutrophils % 83.8 %; Nucleated Red Blood Cells % 0 %; Platelet Count 213 10^3/cmm (130-400); Red Blood Count 4.23 10^6/uL (4.1-5.3); Red Cell Distribution Width 12.9 % (12.1-15.1); White Blood Count 20.4 10^3/uL (4.0-10.0)
[2019-08-11 04:10] LABS: Anion Gap 18.6 (5-19); Blood Urea Nitrogen 24 mg/dL (6-20); Calcium 8.9 mg/dL (8.5-10.5); Carbon Dioxide 24 mmol/L (22-29); Chloride 92 mmol/L (98-107); Glomerular Filtration Rate 56.5 mL/min (90-130); Glucose 302 mg/dL (65-115); Magnesium 1.6 mg/dL (1.7-2.3); Osmolality Calculated 278 mOsm/kg (285-295); Potassium 4.6 mmol/L (3.5-5.1); Sodium 130 mmol/L (136-145)
[2019-08-11 04:22] LABS: Estmated Average Glucose 275; Hemoglobin A1C 11.2 % (4.0-6.0)
[2019-08-11 04:31] LABS: Urine Appearance Clear (CLEAR); Urine Color Yellow (Yellow); pH Urine 5 (5-7)
[2019-08-11 04:32] LABS: Add Urine Microscopic? YES; Bilirubin Urine Neg (NEGATIVE); Blood Urine 2+ (Negative); Glucose Urine UA 4+ (Normal); Ketones Urine 1+ (Negative); Leukocyte Esterase Urine Negative (Negative); Nitrate Urine Negative (Negative); Protein Urine 1+ (Negative); Specific Gravity, Urine 1.015 (1.005-1.030); Urobilinogen Urine 1 mg/dL (Negative)
[2019-08-11 04:33] LABS: Bacteria Urine 1+; Mucus Urine TRACE; RBC Urine 0-4 /hpf (0-2); Squamous Epithelial Cell Urine 0-4 (0-5); WBC Urine 0-4 /hpf (0-5)
[2019-08-11 04:34] LABS: Add Urine Culture? No
[2019-08-11] MEDS: acetaminophen 325 mg Tablet 650 MG PO ×2 (04:38→18:14)
--- NOTE | 2019-08-11 05:52 | PC.NURSE ---
patient developed fever again 103.1 tylenol given and fever is down. levophed is at 2 mcg at this time. patient denies any pain and is resting watching tv. heart rate wnl o2 at 2 liters to maintain sats >93
[2019-08-11] MEDS: sodium chloride 0.9% 1,000 ML 125 ML IV ×3 (05:56→17:15)
[2019-08-11] MEDS: heparin 5,000 unit/mL INJ 1 mL 5000 UNIT SUBCUT ×2 (08:11→20:30)
[2019-08-11] MEDS: insulin aspart 70/30 100 units/1 mL 30 UNIT SUBCUT ×2 (08:13→17:27)
--- NOTE | 2019-08-11 08:19 | P.PN_ITS ---
Subjective Subjective: Interval history: Overall patient is feeling better yet still have soft blood pressure and running fevers Otherwise no acute events overnight Vitals/I&O/Wt Last Vital Signs Temp 103.1 F H 08/11/19 05:15 Pulse 99 08/11/19 06:40 Resp 14 08/11/19 06:40 BP 85/41 08/11/19 06:40 Pulse Ox 94 08/11/19 06:40 08/10/19 08/11/19 08/11/19 22:59 06:59 14:59 Intake Total 1680 / 1680 1290 / 2970 150 / 150 Output Total 400 / 400 Balance 1680 / 1680 890 / 2570 150 / 150 Weight last 48 hrs Weight 268 lb Weight 268 lb Physical Exam Narrative: EXAM NARRATIVE: Patient is conscious alert oriented X3 BMI 36 Head and neck examination PERRLA no masses no cervical lymphadenopathy no jaundice Cardiac examination audible S1-S2 no murmurs no gallops no arrhythmias Chest is clear bilateral,abscence of Rhonchi or wheezes,no surgical emphysema Abdomen nontender nondistended soft no organomegaly guarding or rigidity/no signs of peritonitis Extremities no cyanosis no clubbing no edema Left foot wound is clean without evidence of purulent discharge and cellulitis is fading/vessel loop in place, packing was removed by me bedside and repacked. Flossing was done. Data : 08/13/19 02:29 08/12/19 03:05 Micro: Microbiology 08/10/19 16:27 Blood Culture - Preliminary Blood SPECIMEN COLLECTED 08/10/19 16:15 Blood Culture - Preliminary Blood SPECIMEN COLLECTED A&P Assessment and plan (1) Necrotizing fasciitis: I do recommend daily dressing change in the form of packing with wet-to-dry new gauze and vessel loop flossing followed by Leo Kerlix and Avi wrap. Physical therapy to evaluate the patient for strict nonweightbearing left hindfoot. We will continue coordinating with Dr. Aguilar Recommend to obtain home health on board to help the patient with packing of the wound on daily basis Will follow on cultures and sensitivity On discharge patient should follow-up at the wound care center Assurance and education All questions have been answered and all concerns have been addressed to patient's satisfaction. Status: Resolved Attestations Medical Necessity Statement*: Per hospitalist service Time Spent in Patient Care: 16 - 35 minutes (>than 50% of time spent in counselling and/or direct pt care on unit) . Coding Level of Care Code Acute Supervisor Modern Languages for g Fwd Diagnoses Necrotizing fasciitis M72.6
[2019-08-11 08:20] LABS: Glucose Point of Care 292 mg/dL (70-110)
[2019-08-11] MEDS: linezolid premix 600 MG/300 ML PREMIX 300 MG IV ×2 (08:27→20:30)
--- NOTE | 2019-08-11 08:27 | PM.PN ---
Subjective Subjective: Interval history: POD # 1 s/p I & D of left foot wound by Dr. Urbina, patient seen with him this AM, dressing change done at bedside. Due to hypotension, required addition of Levophed, BP improved this AM. Febrile with Tmax-103.1 F, tachycardic, on RA. Leukocytosis unchanged, stable renal function. Has some chills this AM, had limited sleep overnight. Accucheks noted. Shortly after my initial assessment, received call from nursing staff, stating patient had developed SVT with HRs in the 170-180 range. Bedside assessment, patient states he feels fine though HR continues to be in 170-180 range, and rhythm is SVT, confirmed with stat ECG. Did not convert with vagal maneuvers. Given 6 mg dose of adenosine, with no noted change. Given 12 mg dose of adenosine with conversion to sinus tachycardia. Reports feeling somewhat SOB so placed on supplemental oxygen support. BP stable, remains on minimal pressor support. Medications: Reviewed: Yes Medication Review Details: Active Medications Generic Name Dose Route Start Last Admin Trade Name Freq PRN Reason Stop Dose Admin Acetaminophen 650 mg 08/10/19 20:39 08/11/19 04:38 Tylenol PO 650 mg Q6H PRN Administration MILD PAIN OR INCR EASE TEMP Hydrocodone Bitart /Acetaminophen 1 tab 08/10/19 20:39 [place] 5-325 Mg PO TID PRN MILD TO MODERATE PAIN Aspirin 325 mg 08/11/19 09:00 Aspirin PO DAILY [facility] Atorvastatin Calci um 20 mg 08/11/19 09:00 Lipitor PO DAILY [facility] Dextrose 25 ml 08/10/19 20:39 D50w IVP ONCE PRN hypoglycemia prot ocol Protocol Dextrose 50 ml 08/10/19 20:39 D50w IVP PRN PRN hypoglycemia prot ocol Protocol Docusate Sodium 100 mg 08/11/19 09:00 Colace PO BID [facility] Gabapentin 800 mg 08/11/19 09:00 Neurontin PO BID [facility] Glucagon 1 mg 08/10/19 20:39 Glucagen IM ONCE PRN Adult Acute Hypog lycemia Prot. Protocol Heparin Sodium (Be ef Lung) 5,000 unit 08/10/19 20:39 08/11/19 08:11 Heparin SUBCUT 5,000 unit Q12H [facility] Administration Linezolid 600 mg in 300 mls @ 300 mls/hr 08/10/19 20:01 08/11/19 08:27 Zyvox Premix IV 300 mls/hr Q12H [facility] Administration Protocol Sodium Chloride 1,000 mls @ 125 m ls/hr 08/10/19 20:39 08/11/19 07:08 Sodium Chloride 0.9% IV 125 mls/hr .Q8H [facility] Administration Levofloxacin/Dextr ose 750 mg in 150 mls @ 100 mls/hr 08/11/19 18:00 Levaquin-D5w IV Q24H [facility] Protocol Piperacillin Sod/T azobactam 50 mls @ 12.5 mls /hr 08/11/19 00:00 08/11/19 08:12 Sod 3.375 gm/ So dium Chloride IV 12.5 mls/hr Q8H [facility] Administration Protocol Dextrose 500 mls @ 100 mls /hr 08/10/19 20:39 D5w IV ONCE PRN Adult Acute Hypog lycemia Prot Protocol Norepinephrine Bit artrate 4 mg 254 mls @ 0 mls/h r 08/10/19 21:30 / Dextrose IV .Q0M [facility] Protocol Per Protocol Insulin Aspart 0 unit 08/10/19 21:00 08/11/19 08:12 Novolog SUBCUT 10 unit WM&BEDTIME [facility] Administration Protocol Insulin Aspart 30 unit 08/11/19 08:00 08/11/19 08:13 Novolog 70/30 SUBCUT 30 unit BIDWM [facility] Administration Insulin Glargine 40 unit 08/10/19 21:00 08/10/19 20:57 Lantus SUBCUT Not Given BEDTIME [facility] Lorazepam 1 mg 08/10/19 20:39 Ativan IVP Q6H PRN ANXIETY Ondansetron HCl 4 mg 08/10/19 20:39 Zofran IVP Q6H PRN NAUSEA AND VOMITI NG Pantoprazole Sodiu m 40 mg 08/11/19 09:00 Protonix PO DAILY [facility] Paroxetine HCl 20 mg 08/11/19 09:00 Paxil PO BID [facility] sulfamethoxazole [From Bactrim] Allergy (Verified 08/10/19 18:38) ALGY-Rash trimethoprim [From Bactrim] Allergy (Verified 08/10/19 18:38) ALGY-Rash vancomycin Allergy (Verified 08/10/19 18:38) ALGY-Rash Vitals/I&O/Wt Last Vital Signs Temp 103.1 F H 08/11/19 05:15 Pulse 99 08/11/19 06:40 Resp 14 08/11/19 06:40 BP 85/41 08/11/19 06:40 Pulse Ox 94 08/11/19 06:40 08/10/19 08/11/19 08/11/19 22:59 06:59 14:59 Intake Total 1979 1290 / 3270 150 / 150 Output Total 400 / 400 Balance 1979 890 / 2870 150 / 150 Weight last 48 hrs Weight 121.563 kg Weight 121.563 kg Physical Exam Const: COMMON NORMALS: no acute distress, patient oriented x3 and alert GENERAL APPEARANCE: cooperative, comfortable and ill appearing (less so today) NUTRITIONAL APPEARANCE: obese morbidly obese ORIENTATION/CONSCIOUSNESS: Yes awake HENMT: COMMON NORMALS: normocephalic, atraumatic and hearing grossly normal bilaterally HEAD & SCALP: normocephalic and atraumatic MOUTH: moist mucous membranes abnormal Details: parched TEETH & GINGIVA: Yes caries, Yes poor dentition and Yes other (no apparent purulence, abscess) Eye: COMMON NORMALS: Equal, round and reactive pupils present, EOMs intact bilaterally and conjunctivae normal CONJUNCTIVA: Yes conjunctivae normal PUPIL: Yes Equal, round and reactive pupils present Neck/C-Spine: COMMON NORMALS: full ROM GENERAL: Yes normal visual inspection and Yes trachea midline Chest: CHEST: Yes Symmetrical chest wall rise Resp: COMMON NORMALS: normal respiratory effort, No retractions, No use of accessory muscles and clear to auscultation bilaterally EFFORT & INSPECTION: Yes able to speak in complete sentences, Yes symmetric chest movement and No tachypneic AUSCULTATION: clear to auscultation bilaterally OTHER: -on RA Cardio: COMMON NORMALS: regular rhythm, S1 normal heart sound present, S2 normal heart sound present and No murmurs present (Cardio) RATE: tachycardic RHYTHM: regular rhythm HEART SOUNDS: S1 normal heart sound present and S2 normal heart sound present OTHER: -hypotensive, on pressor support -did have SVT, converted to sinus tachycardia with doses of adenosine GI: COMMON NORMALS: Normal to inspection, nondistended, normoactive bowel sounds present, Soft to palpation and non-tender INSPECTION: Yes central obesity PALPATION: Yes Soft to palpation Back/Pelvis: COMMON NORMALS: thoracic and lumbar spine normal to inspection Extremity: COMMON NORMALS: normal to inspection, full ROM and no clubbing, cyanosis or edema; negative for no pedal edema NARRATIVE EXTREMITY EXAM: -s/p R foot amputation -L foot: open wound with tunneling, good granulation tissue, no purulence, drainage, foul odor, decreased erythema, no fluctuance, vessel loops in place; diminished sensation (peripheral neuropathy) Neuro: COMMON NORMALS: patient oriented x3, moves all extremities, no focal motor deficits and no sensory deficits noted SENSORIUM/ORIENTATION: Yes alert Psych: COMMON NORMALS: mental status grossly normal, Normal thought process present, cooperative, normal affect and speech normal SPEECH: Yes normal speech THOUGHT PROCESS: Normal thought process present Skin: COMMON NORMALS: no rashes or lesions noted, no jaundice, no petechiae and no mottling GENERAL SKIN EXAM: no rashes or lesions noted WOUNDS: Yes wounds noted (L foot) Data : 08/11/19 03:33 08/11/19 03:33 Micro: Microbiology 08/10/19 16:27 Blood Culture - Preliminary Blood SPECIMEN COLLECTED 08/10/19 16:15 Blood Culture - Preliminary Blood SPECIMEN COLLECTED A&P Assessment and plan (1) Necrotizing soft tissue infection: -noted L foot pain, edema, erythema after puncture wound (stepped on a nail) 2 days ago -CRP-210.6; noted leukocytosis with neutrophilic predominance, lactic acidosis, tachycardic, hypotensive, febrile (103 F), tachypnea so currently septic -imaging reviewed with noted suspicion for necrotizing fasciitis at plantar surface of left hindfoot and extending to superiorly and medially the left calcaneus as well as cellulitis involving the left ankle and left foot, no noted evidence of abscess or osteomyelitis -Surgery consult by Dr. Bush appreciated; s/p I & D; POD # 1. Wound care: wet-to-dry Nu Gauze (1 inch) for packing and ABDs with kerlix and RON wrap once daily -on Levaquin, Zosyn, Linezolid -Tetanus dose given -Resuscitation with 2 L IVF; continue maintenance IVF hydration. Overnight, has required addition of Levophed -f/u blood cx -trend WBC; stable leukocytosis today -close monitoring of vital signs -pain control as needed -PT evaluation; NWB L hindfoot Status: Acute (2) Diabetes mellitus with hyperglycemia, with long-term current use of insulin: -A1c-11.2 -Accucheks, ISS, scheduled insulin, hypoglycemia precautions -consistent carb diet as tolerated post-op -hold oral hypoglycemics -anticipate hyperglycemia with active infection Status: Chronic Qualifiers: Diabetes mellitus type: type 2 Qualified Code(s): E11.65 - Type 2 diabetes mellitus with hyperglycemia; Z79.4 - detention (current) use of insulin (3) Diabetic peripheral neuropathy associated with type 2 diabetes mellitus: -on gabapentin Status: Chronic (4) TASIA (acute kidney injury): -TASIA on CKD stage 2 -IVF hydration -monitor renal function, avoid nephrotoxins, renally dose meds. Stable renal function today Status: Acute (5) Morbid obesity: -BMI-36 kg/m2 Status: Chronic (6) Hypertension: -hypotensive currently and receiving fluid resuscitation as well as Levophed -hold ACEi due to hypotension and renal impairment -continue to monitor vital signs closely Status: Chronic Qualifiers: Hypertension type: essential hypertension Qualified Code(s): I10 - Essential (primary) hypertension (7) History of stroke: -on ASA, statin Status: Chronic (8) Hypercholesteremia: -resume statin Status: Chronic (9) History of transmetatarsal amputation of right foot: Status: Chronic (10) Onychodystrophy: Status: Chronic (11) CKD stage 2 due to type 2 diabetes mellitus: -CKD stage 2, baseline Cr wnl Status: Chronic Additional A&P Information -Hyponatremia improved, AG closed; on IVF, repeat labs in AM -GI ppx with PPI -DVT ppx with heparin -Dispo: home; likely with HH -Code status: FULL code -ICU admission due to sepsis, need for continued fluid resuscitation and pressor support Attestations Medical Necessity Statement*: Patient requires hospitalization for management of L foot soft tissue infection with concern for necrotizing fasciitis s/p I & D, on pressor support and broad spectrum IV antibiotics. Time Spent in Patient Care: Greater than 35 minutes (>than 50% of time spent in counselling and/or direct pt care on unit). Critical Care Time: The high probability of a clinically significant, sudden or life threatening deterioration of the patient's [cardiovascular] system(s) required my full and direct attention, intervention and personal management. The critical care time is as shown. This time is in addition to time spent performing any reported procedures but includes the following: [x] Data and vital sign review and interpretation [x] Patient assessment, examination and intervention [x] Documentation [x] Medication orders and management Critical Care Time (min): 20 Coding Level of Care Code Acute Grades 1 Thru 6 Visiting Teacher for Chg Fwd Exam Comprehensive Diagnoses Necrotizing soft tissue infection M79.89 Diabetes mellitus with hyperglycemia, with long-term current use of insulin E11.65; Z79.4 Diabetes mellitus type: type 2 Diabetic peripheral neuropathy associated with type 2 diabetes mellitus E11.42 TASIA (acute kidney injury) N17.9 Morbid obesity E66.01 Hypertension I10 Hypertension type: essential hypertension History of stroke Z86.73 Hypercholesteremia E78.00 History of transmetatarsal amputation of right foot Z89.431 Onychodystrophy L60.3 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
[2019-08-11] MEDS: adenosine 3 mg/mL SDV 2mL 6 MG IVP (08:40)
[2019-08-11] MEDS: adenosine 3 mg/mL SDV 2mL 12 MG IVP (08:45)
--- NOTE | 2019-08-11 09:07 | ECG_ITS ---
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 Measurements Intervals [place] Rate: 179 P: SC: -1 QRS: 109 QRSD: 90 T: -33 QT: 253 QTc: 437 Interpretive Statements SUPRAVENTRICULAR TACHYCARDIA MARKED RIGHT AXIS DEVIATION [QRS AXIS > 100] POSSIBLE ANTERIOR MYOCARDIAL INFARCTION [30 ms Q WAVE IN V3/V4, OR R < 0.2 mV IN V4], OF INDETERMINATE AGE Compared to ECG 07/05/2018 00:36:24 Right-axis deviation now present Myocardial infarct finding now present Sinus rhythm no longer present Electronically Signed On 08-11-2019 13:38:50 CDT by Dora Bateman M.D. [id number]
--- NOTE | 2019-08-11 09:07 | ECG_ITS ---
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 Measurements Intervals [place] Rate: 109 P: 70 AL: 138 QRS: 64 QRSD: 86 T: 9 QT: 314 QTc: 424 Interpretive Statements SINUS TACHYCARDIA LOW QRS VOLTAGE IN PRECORDIAL LEADS POSSIBLE ANTERIOR MYOCARDIAL INFARCTION, OF INDETERMINATE AGE Compared to ECG 08/11/2019 08:29:48 Low QRS voltage now present Supraventricular tachycardia no longer present Right-axis deviation no longer present Myocardial infarct finding still present Electronically Signed On 08-11-2019 13:36:51 CDT by Dora Bateman M.D. [id number]
[2019-08-11] MEDS: docusate sodium 100 mg Capsule PO ×2 (09:12→17:15)
[2019-08-11] MEDS: aspirin 325 mg Tablet PO (09:12)
[2019-08-11] MEDS: atorvastatin 40 mg Tablet 20 MG PO (09:12)
[2019-08-11] MEDS: pantoprazole DR 40 mg Tablet PO (09:12)
[2019-08-11] MEDS: PARoxetine 20 mg Tablet PO ×2 (09:13→17:15)
[2019-08-11] MEDS: gabapentin 400 mg Capsule 800 MG PO ×2 (09:13→17:15)
[2019-08-11 11:29] LABS: Glucose Point of Care 324 mg/dL (70-110)
[2019-08-11] MEDS: magnesium sulfate premix 2 GM/50 ML PIGGYBACK IV (11:31)
--- NOTE | 2019-08-11 15:23 | PC.NURSE ---
P[facility]SCODE #[id number], SET UP WITH EX- ON 08/11/2019
[2019-08-11 16:50] LABS: Glucose Point of Care 330 mg/dL (70-110)
[2019-08-11] MEDS: levofloxacin-dextrose 5 % 750 MG/150 ML PREMIX 100 MG IV (17:16)
--- NOTE | 2019-08-11 18:42 | PC.NURSE ---
PT FLIPPED INTO SVT THIS AM AT 08:26:10, EKG OBTAINED, PROVIDER NOTED AND ARRIVED AT THE BEDSIDE; 6MG OF ADENOSINE GIVEN WITH NO CHANGE IN RATE; 12MG OF ADENOSINE GIVEN WITH RATE SLOWING TO 110'S; PT HAD NO COMPLIANTS OF SOB UNTIL AFTER RATE WAS SLOWED; O2 INCREASED TO 4LPM VIA NC; O2 TITRATED BACK DOWN TO 2LPM NC AT 1600; DRESSING CHANGE COMPLETED BY PHYSICIAN; WOUND IS APPROXIMATELY 3 INCHES IN WIDTH BY AT LEAST 2.5 INCHES IN DEPTH THAT HAS 1 KERLEX, WET TO DRY PACKED ALONG WITH FLOSS TO HELP MAINTAIN DEBRIDEMENT; WILL CONTINUE TO MONITOR
--- NOTE | 2019-08-11 19:15 | CTR_ITS ---
PROCEDURE INFORMATION: Exam: CT Maxillofacial Without Contrast Exam date and time: 08/11/2019 7:44 PM Age: 58 years old Clinical indication: Patient HX: Septic w dental caries C/O jaw pain; Additional info: Jaw pain, leukocytosis, sepsis, dental caries TECHNIQUE: Imaging protocol: Computed tomography images of the face without contrast. Radiation optimization: All CT scans at this facility use at least one of these dose optimization techniques: automated exposure control; mA and/or kV adjustment per patient size (includes targeted exams where dose is matched to clinical indication); or iterative reconstruction. COMPARISON: No relevant prior studies available. RADIATION DOSE METRICS: Total DLP (mGy-cm): 783.86 FINDINGS: Orbits: Orbits are normal. Globes are unremarkable. Bones/joints: No acute fracture. Sinuses: Mild sinusitis changes are appreciated. Dental: Multiple dental caries are observed. Alveolar lucencies are seen surrounding multiple maxillary tooth roots. Soft tissues: No fluid collection is seen to suggest an abscess. CT/CT facial bones wo con* [id number] IMPRESSION: 1. Multiple dental caries. No abscess is visualized. 2. Mild sinusitis. Radiation Dose CTDIVOL = (mGy): DLP = 783.86 (mGy-cm)
[2019-08-11 20:30] LABS: Glucose Point of Care 344 mg/dL (70-110)
[2019-08-11] MEDS: insulin glargine 100 units/1 mL 40 UNIT SUBCUT (20:38)
[2019-08-12] VITALS (21 sets, daily range): BP systolic 96–130; BP diastolic 55–85; PULSE 81–97; RESP 8–22; TEMP 36.8–37.6; O2SAT 91–97
[2019-08-12] MEDS: piperacillin-tazobactam 3.375 GM in sodium chloride 0.9% (plus) 50 ML IV ×4 (01:38→23:57)
[2019-08-12 04:06] LABS: Basophils % 0.3 %; Eosinophils # 0.1 10^3/uL (0.0-0.8); Eosinophils % 0.5 %; Hematocrit 37.7 % (42.0-52.0); Hemoglobin 12.5 g/dL (11.7-16.6); Lymphocytes # 0.7 10^3/uL (0.8-4.8); Mean Corpuscular HGB Conc 33.2 g/dL (30.0-36.0); Mean Corpuscular Hemoglobin 31.7 pg (28.0-34.0); Mean Corpuscular Volume 95.7 fL (80-94); Mean Platelet Volume 10.6 fL (7.4-10.4); Monocytes # 1.5 10^3/uL (0.2-0.9); Monocytes % 13.9 %; Neutrophils # 8.1 10^3/uL (1.8-7.7); Neutrophils % 77.5 %; Nucleated Red Blood Cells % 0 %; Platelet Count 202 10^3/cmm (130-400); Red Blood Count 3.94 10^6/uL (4.1-5.3); Red Cell Distribution Width 12.6 % (12.1-15.1); White Blood Count 10.5 10^3/uL (4.0-10.0)
[2019-08-12] MEDS: sodium chloride 0.9% 1,000 ML 125 ML IV (04:13)
[2019-08-12 04:26] LABS: Anion Gap 15.4 (5-19); Blood Urea Nitrogen 19 mg/dL (6-20); Calcium 8.7 mg/dL (8.5-10.5); Carbon Dioxide 25 mmol/L (22-29); Chloride 100 mmol/L (98-107); Glomerular Filtration Rate 68.5 mL/min (90-130); Glucose 293 mg/dL (65-115); Magnesium 2.4 mg/dL (1.7-2.3); Osmolality Calculated 289 mOsm/kg (285-295); Potassium 4.4 mmol/L (3.5-5.1); Sodium 136 mmol/L (136-145)
--- NOTE | 2019-08-12 05:39 | PHA.FALL ---
A Pharmacy Consult Was Conducted For Yoandy Escamilla Sarath CRAWFORD Due To: [place] Fall Scale Risk Level: High Fall Risk On 08/11/19 20:00 And A Medication Fall Risk Score Greater Than 10. The Recommendations Are As Follows: Insulins can cause Hypoglycemia Gabapentin: Sedation, psychomotor impairment, confusion Hydrocodone/APAP : Sedation, confusion Lorazepam: Psychomotor impairment, sedation, orthostatic hypotension, confusion, dizziness and confusion Thank you, Lauryn Zafar [facility]
--- NOTE | 2019-08-12 06:07 | PC.NURSE ---
Shift Summary Patient rested well last night. No c/o of pain to left lower extrem. CT completed at beginning of shift. Patient tolerated fair. transported patient via w/c. Afebrile all shift coordinator. see vitals. Levophed turned off around 2300. BP's have maintained normotensive. Large BM this am around 0600. Patient used urinal also through the night. see I and O assessment.
[2019-08-12 07:25] LABS: Glucose Point of Care 278 mg/dL (70-110)
[2019-08-12] MEDS: linezolid premix 600 MG/300 ML PREMIX 300 MG IV ×2 (07:29→17:48)
[2019-08-12] MEDS: insulin aspart 70/30 100 units/1 mL 30 UNIT SUBCUT ×2 (07:30→17:29)
[2019-08-12] MEDS: acetaminophen 325 mg Tablet 650 MG PO (07:38)
[2019-08-12] MEDS: atorvastatin 40 mg Tablet 20 MG PO (08:19)
[2019-08-12] MEDS: gabapentin 400 mg Capsule 800 MG PO ×2 (08:19→17:29)
[2019-08-12] MEDS: heparin 5,000 unit/mL INJ 1 mL 5000 UNIT SUBCUT ×2 (08:19→19:53)
[2019-08-12] MEDS: pantoprazole DR 40 mg Tablet PO (08:20)
[2019-08-12] MEDS: aspirin 325 mg Tablet PO (08:20)
[2019-08-12] MEDS: PARoxetine 20 mg Tablet PO ×2 (08:20→17:29)
--- NOTE | 2019-08-12 09:15 | PM.PN ---
Subjective Subjective: Interval history: POD # 2 s/p I & D of left foot wound by Dr. Urbina. Weaned off pressor support around 2300 and hemodynamically stable since then, afebrile though had spiked fever of 103.2 F around 1800. Had 700 mL urine output overnight, has remained in sinus rhythm and rate controlled. Significantly decreased leukocytosis (20.4->10.5), improved renal function. Remains on 2 L NC. Diaphoretic and seems confused about being in ICU when I discussed transfer to the floor. Dressing change done earlier by nursing staff. Medications: Reviewed: Yes Medication Review Details: Active Medications Generic Name Dose Route Start Last Admin Trade Name Freq PRN Reason Stop Dose Admin Acetaminophen 650 mg 08/10/19 20:39 08/12/19 07:38 Tylenol PO 650 mg Q6H PRN Administration MILD PAIN OR INCR EASE TEMP Hydrocodone Bitart /Acetaminophen 1 tab 08/10/19 20:39 [place] 5-325 Mg PO TID PRN MILD TO MODERATE PAIN Aspirin 325 mg 08/11/19 09:00 08/12/19 08:20 Aspirin PO 325 mg DAILY LASHELL Administration Atorvastatin Calci um 20 mg 08/11/19 09:00 08/12/19 08:19 Lipitor PO 20 mg DAILY LASHELL Administration Dextrose 25 ml 08/10/19 20:39 D50w IVP ONCE PRN hypoglycemia prot ocol Protocol Dextrose 50 ml 08/10/19 20:39 D50w IVP PRN PRN hypoglycemia prot ocol Protocol Docusate Sodium 100 mg 08/11/19 09:00 08/12/19 08:20 Colace PO Not Given BID LASHELL Gabapentin 800 mg 08/11/19 09:00 08/12/19 08:19 Neurontin PO 800 mg BID LASHELL Administration Glucagon 1 mg 08/10/19 20:39 Glucagen IM ONCE PRN Adult Acute Hypog lycemia Prot. Protocol Heparin Sodium (Be ef Lung) 5,000 unit 08/10/19 20:39 08/12/19 08:19 Heparin SUBCUT 5,000 unit Q12H LASHELL Administration Linezolid 600 mg in 300 mls @ 300 mls/hr 08/10/19 20:01 08/12/19 07:29 Zyvox Premix IV 300 mls/hr Q12H LASHELL Administration Protocol Sodium Chloride 1,000 mls @ 125 m ls/hr 08/10/19 20:39 08/12/19 04:13 Sodium Chloride 0.9% IV 125 mls/hr .Q8H LASHELL Administration Levofloxacin/Dextr ose 750 mg in 150 mls @ 100 mls/hr 08/11/19 18:00 08/11/19 17:16 Levaquin-D5w IV 100 mls/hr Q24H LASHELL Administration Protocol Piperacillin Sod/T azobactam 50 mls @ 12.5 mls /hr 08/11/19 00:00 08/12/19 07:29 Sod 3.375 gm/ So dium Chloride IV 12.5 mls/hr Q8H LASHELL Administration Protocol Dextrose 500 mls @ 100 mls /hr 08/10/19 20:39 D5w IV ONCE PRN Adult Acute Hypog lycemia Prot Protocol Norepinephrine Bit artrate 4 mg 254 mls @ 0 mls/h r 08/10/19 21:30 / Dextrose IV .Q0M LASHELL Protocol Per Protocol Insulin Aspart 0 unit 08/10/19 21:00 08/12/19 07:31 Novolog SUBCUT 10 unit WM&BEDTIME LASHELL Administration Protocol Insulin Aspart 30 unit 08/11/19 08:00 08/12/19 07:30 Novolog 70/30 SUBCUT 30 unit BIDWM LASHELL Administration Insulin Glargine 40 unit 08/10/19 21:00 08/11/19 20:44 Lantus SUBCUT Not Given BEDTIME LASHELL Lorazepam 1 mg 08/10/19 20:39 Ativan IVP Q6H PRN ANXIETY Ondansetron HCl 4 mg 08/10/19 20:39 Zofran IVP Q6H PRN NAUSEA AND VOMITI NG Pantoprazole Sodiu m 40 mg 08/11/19 09:00 08/12/19 08:20 Protonix PO 40 mg DAILY LASHELL Administration Paroxetine HCl 20 mg 08/11/19 09:00 08/12/19 08:20 Paxil PO 20 mg BID LASHELL Administration sulfamethoxazole [From Bactrim] Allergy (Verified 08/10/19 18:38) ALGY-Rash trimethoprim [From Bactrim] Allergy (Verified 08/10/19 18:38) ALGY-Rash vancomycin Allergy (Verified 08/10/19 18:38) ALGY-Rash Vitals/I&O/Wt Last Vital Signs Temp 98.2 F 08/12/19 09:00 Pulse 94 08/12/19 09:00 Resp 18 08/12/19 09:00 BP 120/65 08/12/19 09:00 Pulse Ox 93 08/12/19 09:00 08/11/19 08/12/19 08/12/19 22:59 06:59 14:59 Intake Total 1830 / 2802 1050 / 3852 236 / 236 Output Total 1025 / 2050 700 / 2750 Balance 805 / 752 350 / 1102 236 / 236 Weight last 48 hrs Weight 121.109 kg Weight 121.563 kg Weight 121.563 kg Physical Exam Const: COMMON NORMALS: no acute distress, patient oriented x3 and alert GENERAL APPEARANCE: cooperative, comfortable and diaphoretic NUTRITIONAL APPEARANCE: obese morbidly obese ORIENTATION/CONSCIOUSNESS: Yes awake HENMT: COMMON NORMALS: normocephalic, atraumatic and hearing grossly normal bilaterally HEAD & SCALP: normocephalic and atraumatic MOUTH: moist mucous membranes abnormal Details: parched TEETH & GINGIVA: Yes caries, Yes poor dentition and Yes other (no apparent purulence, abscess) Eye: COMMON NORMALS: Equal, round and reactive pupils present, EOMs intact bilaterally and conjunctivae normal CONJUNCTIVA: Yes conjunctivae normal PUPIL: Yes Equal, round and reactive pupils present Neck/C-Spine: COMMON NORMALS: full ROM GENERAL: Yes normal visual inspection and Yes trachea midline Chest: CHEST: Yes Symmetrical chest wall rise Resp: COMMON NORMALS: normal respiratory effort, No retractions, No use of accessory muscles and clear to auscultation bilaterally EFFORT & INSPECTION: Yes able to speak in complete sentences, Yes symmetric chest movement and No tachypneic AUSCULTATION: clear to auscultation bilaterally OTHER: -on 2 L NC Cardio: COMMON NORMALS: regular rate, regular rhythm, S1 normal heart sound present, S2 normal heart sound present and No murmurs present (Cardio) RATE: regular rate RHYTHM: regular rhythm HEART SOUNDS: S1 normal heart sound present and S2 normal heart sound present OTHER: -normotensive GI: COMMON NORMALS: Normal to inspection, nondistended, normoactive bowel sounds present, Soft to palpation and non-tender INSPECTION: Yes central obesity PALPATION: Yes Soft to palpation Back/Pelvis: COMMON NORMALS: thoracic and lumbar spine normal to inspection Extremity: COMMON NORMALS: normal to inspection, full ROM and no clubbing, cyanosis or edema; negative for no pedal edema NARRATIVE EXTREMITY EXAM: -s/p R foot amputation -L foot: dressing in place (clean/dry); diminished sensation (peripheral neuropathy) Neuro: COMMON NORMALS: patient oriented x3, moves all extremities, no focal motor deficits and no sensory deficits noted SENSORIUM/ORIENTATION: Yes alert Psych: COMMON NORMALS: mental status grossly normal, Normal thought process present, cooperative, normal affect and speech normal SPEECH: Yes normal speech THOUGHT PROCESS: Normal thought process present Skin: COMMON NORMALS: no rashes or lesions noted, no jaundice, no petechiae and no mottling GENERAL SKIN EXAM: no rashes or lesions noted WOUNDS: Yes wounds noted (L foot) Data : 08/12/19 03:05 08/12/19 03:05 Micro: Microbiology 08/10/19 16:27 Blood Culture - Preliminary Blood NEGATIVE TO DATE 08/10/19 16:15 Blood Culture - Preliminary Blood NEGATIVE TO DATE A&P Assessment and plan (1) Necrotizing soft tissue infection: -noted L foot pain, edema, erythema after puncture wound (stepped on a nail) 2 days ago -CRP-210.6; noted leukocytosis with neutrophilic predominance, lactic acidosis, tachycardic, hypotensive, febrile (103 F), tachypnea so currently septic -imaging reviewed with noted suspicion for necrotizing fasciitis at plantar surface of left hindfoot and extending to superiorly and medially the left calcaneus as well as cellulitis involving the left ankle and left foot, no noted evidence of abscess or osteomyelitis -Surgery consult by Dr. Bush appreciated; s/p I & D; POD # 2. Wound care: wet-to-dry Nu Gauze (1 inch) for packing and ABDs with kerlix and RON wrap once daily -on Levaquin, Zosyn, Linezolid (day 2) -Tetanus dose given -decrease IVF with improved oral intake; off pressor support -blood cx: prelim negative -wound cx- staph species (heavy), GNRs (scant); pending ID & sensitivity -continue to trend WBC; significant decrease in leukocytosis today -close monitoring of vital signs -pain control as needed -PT evaluation; NWB L hindfoot -initial impression was that L foot infection did not fully account for septic picture but no other clear alternative or additional infectious etiology given UA, CXR, CT facial bones (done due to noted dental caries and c/o jaw pain) findings Status: Acute (2) Diabetes mellitus with hyperglycemia, with long-term current use of insulin: -A1c-11.2 -Accucheks, ISS, scheduled insulin, hypoglycemia precautions -consistent carb diet as tolerated post-op -hold oral hypoglycemics -anticipate hyperglycemia with active infection Status: Chronic Qualifiers: Diabetes mellitus type: type 2 Qualified Code(s): E11.65 - Type 2 diabetes mellitus with hyperglycemia; Z79.4 - group home (current) use of insulin (3) Diabetic peripheral neuropathy associated with type 2 diabetes mellitus: -on gabapentin Status: Chronic (4) TASIA (acute kidney injury): -TASIA on CKD stage 2 -IVF hydration; wean with improved oral intake -renal function normalized, avoid nephrotoxins, renally dose meds. Status: Resolved (5) Morbid obesity: -BMI-36 kg/m2 Status: Chronic (6) Hypertension: -normotensive, off pressor support, on IVF -resume ACEi -continue to monitor vital signs closely Status: Chronic Qualifiers: Hypertension type: essential hypertension Qualified Code(s): I10 - Essential (primary) hypertension (7) History of stroke: -on ASA, statin Status: Chronic (8) Hypercholesteremia: -resume statin Status: Chronic (9) History of transmetatarsal amputation of right foot: Status: Chronic (10) Onychodystrophy: Status: Chronic (11) CKD stage 2 due to type 2 diabetes mellitus: -CKD stage 2, baseline Cr wnl Status: Chronic Additional A&P Information -Hyponatremia resolved, AG closed; on IVF -GI ppx with PPI -DVT ppx with heparin -Dispo: home; likely with HH -Code status: FULL code -transfer to floor for continued care Attestations Medical Necessity Statement*: Patient requires hospitalization for continued management of left foot soft tissue infection status post incision and drainage, on IV antibiotic treatment pending wound cx results. Time Spent in Patient Care: 16 - 35 minutes (>than 50% of time spent in counselling and/or direct pt care on unit). Coding Level of Care Code Acute Heel Dipper for g Fwd Exam Comprehensive Diagnoses Necrotizing soft tissue infection M79.89 Diabetes mellitus with hyperglycemia, with long-term current use of insulin E11.65; Z79.4 Diabetes mellitus type: type 2 Diabetic peripheral neuropathy associated with type 2 diabetes mellitus E11.42 TASIA (acute kidney injury) N17.9 Morbid obesity E66.01 Hypertension I10 Hypertension type: essential hypertension History of stroke Z86.73 Hypercholesteremia E78.00 History of transmetatarsal amputation of right foot Z89.431 Onychodystrophy L60.3 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
[2019-08-12 11:22] LABS: Glucose Point of Care 242 mg/dL (70-110)
--- NOTE | 2019-08-12 15:29 | PC.NURSE ---
rec'd patient from icu nurse Ngozi. Patient oriented to room, a/ox4 JACKELIN, SHAN
[2019-08-12] MEDS: sodium chloride 0.9% 1,000 ML 75 ML IV (15:50)
[2019-08-12] MEDS: levofloxacin-dextrose 5 % 750 MG/150 ML PREMIX 100 MG IV ×2 (17:28→20:29)
[2019-08-12 17:32] LABS: Glucose Point of Care 259 mg/dL (70-110)
[2019-08-12] MEDS: HYDROcodone-acetaminophen 5-325 mg Tablet 1 TAB PO (17:33)
[2019-08-12 21:05] LABS: Glucose Point of Care 264 mg/dL (70-110)
[2019-08-12] MEDS: insulin glargine 100 units/1 mL 40 UNIT SUBCUT (21:40)
[2019-08-13] VITALS (7 sets, daily range): BP systolic 122–148; BP diastolic 60–79; PULSE 83–99; RESP 18–20; TEMP 36.9–37.3; O2SAT 92–95; BMI 36.2
[2019-08-13 00:08] LABS: Glucose Point of Care 205 mg/dL (70-110)
[2019-08-13 02:46] LABS: Basophils % 0.2 %; Eosinophils # 0.1 10^3/uL (0.0-0.8); Eosinophils % 1.2 %; Hematocrit 34.9 % (42.0-52.0); Hemoglobin 11.7 g/dL (11.7-16.6); Lymphocytes # 1.1 10^3/uL (0.8-4.8); Lymphocytes % 12.7 %; Mean Corpuscular HGB Conc 33.5 g/dL (30.0-36.0); Mean Corpuscular Hemoglobin 31.2 pg (28.0-34.0); Mean Corpuscular Volume 93.1 fL (80-94); Mean Platelet Volume 10.3 fL (7.4-10.4); Monocytes # 0.9 10^3/uL (0.2-0.9); Monocytes % 10.1 %; Neutrophils # 6.7 10^3/uL (1.8-7.7); Neutrophils % 75.5 %; Nucleated Red Blood Cells % 0 %; Platelet Count 211 10^3/cmm (130-400); Red Blood Count 3.75 10^6/uL (4.1-5.3); Red Cell Distribution Width 12.7 % (12.1-15.1); White Blood Count 8.9 10^3/uL (4.0-10.0)
[2019-08-13] MEDS: linezolid premix 600 MG/300 ML PREMIX 300 MG IV (05:18)
[2019-08-13] MEDS: sodium chloride 0.9% 1,000 ML 75 ML IV (05:18)
[2019-08-13 06:51] LABS: Glucose Point of Care 255 mg/dL (70-110)
[2019-08-13] MEDS: piperacillin-tazobactam 3.375 GM in sodium chloride 0.9% (plus) 50 ML IV (09:01)
[2019-08-13] MEDS: insulin aspart 70/30 100 units/1 mL 30 UNIT SUBCUT (09:01)
[2019-08-13] MEDS: lisinopril 20 mg Tablet PO (09:02)
[2019-08-13] MEDS: aspirin 325 mg Tablet PO (09:02)
[2019-08-13] MEDS: heparin 5,000 unit/mL INJ 1 mL 5000 UNIT SUBCUT (09:02)
[2019-08-13] MEDS: atorvastatin 40 mg Tablet 20 MG PO (09:02)
[2019-08-13] MEDS: PARoxetine 20 mg Tablet PO (09:03)
[2019-08-13] MEDS: pantoprazole DR 40 mg Tablet PO (09:03)
[2019-08-13] MEDS: gabapentin 400 mg Capsule 800 MG PO (09:03)
[2019-08-13] MEDS: HYDROcodone-acetaminophen 5-325 mg Tablet 1 TAB PO (09:11)
--- NOTE | 2019-08-13 09:35 | PC.SOCIAL ---
IMM Update PG. 2 of IMM updated. Initialed, dated, and timed, and placed in chart, Copy provided to patient.
[2019-08-13 11:46] LABS: Glucose Point of Care 273 mg/dL (70-110)
--- NOTE | 2019-08-13 15:17 | P.DS_ITS ---
Discharge Providers Date of Admission: 08/10/19 19:12 Date of Discharge: August 13, 2019 Attending Provider at Admission: Olive Aguilar MD Attending Provider at Discharge: Olive Aguilar MD Primary Care Provider: Thuan Hanks MD Diagnoses at Discharge Discharge Diagnosis (1) Necrotizing soft tissue infection: Status: Acute Problem details: -noted L foot pain, edema, erythema after puncture wound (stepped on a nail) 2 days ago -CRP-210.6; noted leukocytosis with neutrophilic predominance, lactic acidosis, tachycardic, hypotensive, febrile (103 F), tachypnea so initially septic -imaging reviewed with noted suspicion for necrotizing fasciitis at plantar surface of left hindfoot and extending to superiorly and medially the left calcaneus as well as cellulitis involving the left ankle and left foot, no noted evidence of abscess or osteomyelitis -Surgery consult by Dr. Bush appreciated; s/p I & D; POD # 3. Wound care: wet-to-dry Nu Gauze (1 inch) for packing and ABDs with kerlix and RON wrap once daily -on Levaquin, Zosyn, Linezolid (day 3) -Tetanus dose given -d/c IVF with improved oral intake; off pressor support -blood cx: prelim negative -wound cx- MSSA (heavy), Enterobacter cloacae, GNRs (scant); sensitivity noted -leukocytosis resolved -close monitoring of vital signs; stable -pain control as needed -PT evaluation; NWB L hindfoot -initial impression was that L foot infection did not fully account for septic picture but no other clear alternative or additional infectious etiology given UA, CXR, CT facial bones (done due to noted dental caries and c/o jaw pain) findings (2) Diabetes mellitus with hyperglycemia, with long-term current use of insulin: Status: Chronic Problem details: -A1c-11.2 -Accucheks, ISS, scheduled insulin, hypoglycemia precautions -consistent carb diet as tolerated post-op -hold oral hypoglycemics -anticipate hyperglycemia with active infection Qualifiers: Diabetes mellitus type: type 2 Qualified Code(s): E11.65 - Type 2 diabetes mellitus with hyperglycemia; Z79.4 - senior living (current) use of insulin (3) Diabetic peripheral neuropathy associated with type 2 diabetes mellitus: Status: Chronic Problem details: -on gabapentin (4) TASIA (acute kidney injury): Status: Resolved Problem details: -TASIA on CKD stage 2 -IVF hydration; wean with improved oral intake -renal function normalized, avoid nephrotoxins, renally dose meds. (5) Morbid obesity: Status: Chronic Problem details: -BMI-36 kg/m2 (6) Hypertension: Status: Chronic Problem details: -normotensive, off pressor support, on IVF -on ACEi -continue to monitor vital signs closely Qualifiers: Hypertension type: essential hypertension Qualified Code(s): I10 - Essential (primary) hypertension (7) History of stroke: Status: Chronic Problem details: hx of embolic CVA in 2006 -on ASA, statin (8) Hypercholesteremia: Status: Chronic Problem details: -on statin (9) History of transmetatarsal amputation of right foot: Status: Chronic (10) Onychodystrophy: Status: Chronic (11) CKD stage 2 due to type 2 diabetes mellitus: Status: Chronic Problem details: -CKD stage 2, baseline Cr wnl Reason for Visit Reason for Visit: stepped on nail Hospital Course Hospital Course: Patient was initially admitted to ICU after having been taken emergently to the OR for an incision and drainage of left foot wound suspicious for necrotizing fasciitis on imaging. He was noted to be septic with associated leukocytosis, tachycardia, hypotension, fever and was started on broad-spectrum IV antibiotics including Zyvox for possible MRSA coverage. Due to persistent hypotension despite fluid resuscitation patient required pressor support with Levophed. Initial impression was that clinical findings including persistent leukocytosis, fever, hypotension do not stem entirely from left foot wound. There was no other clear infectious etiology based on UA findings, other symptoms. Patient had noted some left jaw pain and was noted to have multiple dental caries for which she had a CT scan of the facial bones for further evaluation including to rule out additional source of infection. This was neg ative save for some sinusitis. Interestingly patient begun to clinically improve with noted hemodynamic stability, ability to wean off pressor support, decreasing erythema following I&D, decreased leukocytosis to the point where as of today it has resolved, lack of fever over the past 24 to 48 hours. He has a history of poorly controlled insulin-dependent diabetes and his blood sugar was closely monitored and insulin titrated as needed for more consistent blood glucose control. Wound care was provided per specifications from Dr. Bush. Patient will need continued wound care follow-up with him as well as home health services to continue to provide appropriate wound care at home. Wound cultures have grown MSSA, enterobacter cloacae, gram-negative rods with sensitivity noted. He will be continued on Levaquin to complete the treatment course. He has been counseled on need to be [id number] on the left hindfoot and so far has been ambulating with a walker to and from the bathroom. He is to follow-up with his primary care provider within 1 week. He is counseled on need to seek medical attention immediately should he notice increased purulence or foul-smelling drainage from wound, increased redness, fever/chills. Discharge Summary: -Patient to follow-up with his primary care provider within 1 week -Patient to follow-up with Dr. Urbina at the wound care clinic as soon as next available appointment Physical Exam Const: COMMON NORMALS: no acute distress, patient oriented x3 and alert GENERAL APPEARANCE: cooperative, comfortable and diaphoretic NUTRITIONAL APPEARANCE: obese morbidly obese ORIENTATION/CONSCIOUSNESS: Yes awake HENMT: COMMON NORMALS: normocephalic, atraumatic and hearing grossly normal bilaterally HEAD & SCALP: normocephalic and atraumatic MOUTH: moist mucous membranes abnormal Details: parched TEETH & GINGIVA: Yes caries, Yes poor dentition and Yes other (no apparent purulence, abscess) Eye: COMMON NORMALS: Equal, round and reactive pupils present, EOMs intact bilaterally and conjunctivae normal CONJUNCTIVA: Yes conjunctivae normal PUPIL: Yes Equal, round and reactive pupils present Neck/C-Spine: COMMON NORMALS: full ROM GENERAL: Yes normal visual inspection and Yes trachea midline Chest: CHEST: Yes Symmetrical chest wall rise Resp: COMMON NORMALS: normal respiratory effort, No retractions, No use of accessory muscles and clear to auscultation bilaterally EFFORT & INSPECTION: Yes able to speak in complete sentences, Yes symmetric chest movement and No tachypneic AUSCULTATION: clear to auscultation bilaterally OTHER: -on 2 L NC Cardio: COMMON NORMALS: regular rate, regular rhythm, S1 normal heart sound present, S2 normal heart sound present and No murmurs present (Cardio) RATE: regular rate RHYTHM: regular rhythm HEART SOUNDS: S1 normal heart sound present and S2 normal heart sound present OTHER: -normotensive GI: COMMON NORMALS: Normal to inspection, nondistended, normoactive bowel sounds present, Soft to palpation and non-tender INSPECTION: Yes central o besity PALPATION: Yes Soft to palpation Back/Pelvis: COMMON NORMALS: thoracic and lumbar spine normal to inspection Extremity: COMMON NORMALS: normal to inspection, full ROM and no clubbing, cyanosis or edema; negative for no pedal edema NARRATIVE EXTREMITY EXAM: -s/p R foot amputation -L foot: dressing in place (clean/dry); diminished sensation (peripheral neuropathy) Neuro: COMMON NORMALS: patient oriented x3, moves all extremities, no focal motor deficits and no sensory deficits noted SENSORIUM/ORIENTATION: Yes alert Psych: COMMON NORMALS: mental status grossly normal, Normal thought process present, cooperative, normal affect and speech normal SPEECH: Yes normal speech THOUGHT PROCESS: Normal thought process present Skin: COMMON NORMALS: no rashes or lesions noted, no jaundice, no petechiae and no mottling GENERAL SKIN EXAM: no rashes or lesions noted WOUNDS: Yes wounds noted (L foot) Discharge Data Data Completed and Pending: Completed Studies During Hospitalization Category Date Time Status CT facial bones w o con* [id number] Routi ne Cat Scan 08/11/19 19:[address] lower leg LT w con [id number] Urgent Cat Scan 08/10/19 16:03 Completed XR chest 1V prem ble [id number] Stat Exams 08/10/19 16:03 Completed Pathology: Surgic al [PTH] Routine Pth 08/10/19 19:47 Completed Pending at discharge Category Date Time Status Blood Culture Sta t Lab 08/10/19 16:27 Results Wound Culture Rou malik Lab 08/10/19 17:35 Results Labs from last 24 hours 08/13/19 08/13/19 08/13/19 11:12 06:19 02:29 WBC 8.9 RBC 3.75 L Hgb 11.7 Hct 34.9 L MCV 93.1 MCH 31.2 MCHC 33.5 RDW 12.7 Plt Count 211 MPV 10.3 Neut % (Auto) 75.5 Lymph % (Auto) 12.7 [place] % (Auto) 10.1 Eos % (Auto) 1.2 Baso % (Auto) 0.2 Neut # (Auto) 6.7 Lymph # (Auto) 1.1 [place] # (Auto) 0.9 Eos # (Auto) 0.1 Baso # (Auto) 0.0 Nucleated RBC % (a uto) 0 Nucleated RBCs # 0.0 POC Glucose 273 255 08/13/19 08/12/19 08/12/19 00:04 20:57 17:17 WBC RBC Hgb Hct MCV MCH MCHC RDW Plt Count MPV Neut % (Auto) Lymph % (Auto) [place] % (Auto) Eos % (Auto) Baso % (Auto) Neut # (Auto) Lymph # (Auto) [place] # (Auto) Eos # (Auto) Baso # (Auto) Nucleated RBC % (a uto) Nucleated RBCs # POC Glucose 205 264 259 Vitals: Last Vital Signs Temp 99.0 F 08/13/19 11:14 Pulse 90 08/13/19 11:14 Resp 20 H 08/13/19 11:14 BP 133/70 08/13/19 11:14 Pulse Ox 92 08/13/19 11:14 Discharge Plan Discharge Patient Disposition: Home Health Service Condition: Stable Prescriptions: New levofloxacin 750 mg tablet 750 mg PO DAILY 10 Days Qty: 10 RF: 0 Continued gabapentin 800 mg tablet 800 mg PO BID RF: 0 lisinopril 20 mg tablet 20 mg PO DAILY RF: 0 hydrocodone-acetaminophen 5-325 mg tablet 1 tab PO TID PRN (Reason: Pain) RF: 0 pravastatin [Pravachol] 40 mg tablet 40 mg PO DAILY RF: 0 aspirin 325 mg tablet 325 mg PO DAILY RF: 0 paroxetine HCl [Paxil] 20 mg tablet 20 mg PO BID RF: 0 Tradjenta 5 mg tablet 5 mg PO DAILY Qty: 90 RF: 3 insulin asp prt-insulin aspart [Novolog Mix 70-30FlexPen U-100] 100 unit/mL (70-30) insulin pen 30 unit SUBCUT BID 30 Days Qty: 18 RF: 1 Lantus Solostar U-100 Insulin 100 unit/mL (3 mL) insulin pen 40 unit SUBCUT DAILY 30 Days Qty: 15 RF: 1 Discharge Orders: Discharge Order (Routine); Ordered 08/13/19 Ordered By: Olive Aguilar Referrals: Jose Bush MD [Physician] - 08/16/19 (Wound care clinic follow up this week) Thuan Hanks MD [Primary Care Provider] - 4-7 days (Post hospital discharge follow up. Had I & D of L foot soft tissue infection; on Levaquin, will be following up with Dr. Urbina. ) Discharge Diet: Diabetic Activity Restrictions/Additional Instructions: -Non-weight bearing on L foot. Please use walker consistently -Please seek medical attention immediately if noted increased foul-smelling drainage from wound, increased swelling or redness, worsening pain, fever/chills Discharge Attestations Time Spent in Discharge Care*: greater than 30 min Specific Discharge Activities: Specific discharge activities: educating p atient, discussing with director case management/social workers/dc planners, documenting/other paperwork and evaluating patient/reviewing data Status at Discharge: Cognitive status at discharge: cognitively intact , Behavioral status at discharge: cooperative , Functional status at discharge: uses cane/walker (NWB on L hindfoot) Overall status at discharge: patient is progressing back to baseline Quality Metrics Clinical Quality Measures During this hospital stay, did patient experience: None Coding Level of Care Code Acute Business Transformation Analyst for g Fwd Exam Comprehensive Diagnoses Necrotizing soft tissue infection M79.89 Diabetes mellitus with hyperglycemia, with long-term current use of insulin E11.65; Z79.4 Diabetes mellitus type: type 2 Diabetic peripheral neuropathy associated with type 2 diabetes mellitus E11.42 TASIA (acute kidney injury) N17.9 Morbid obesity E66.01 Hypertension I10 Hypertension type: essential hypertension History of stroke Z86.73 Hypercholesteremia E78.00 History of transmetatarsal amputation of right foot Z89.431 Onychodystrophy L60.3 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
== END 2019-08-13 17:59 | disposition home health service (06) | DRG 853 ==
LOC: ER 18:22 → OR 18:30 → ICU 19:13 → MEDSURG 08-12 14:22
PROVIDERS: Family Medicine; Surgery; Admitting Provider Family Medicine; PCP Family Medicine; Visit Provider Family Medicine
PROC: 0YBN0ZZ Excision of Left Foot, Open Approach (ICD-10-PCS; principal; 2019-08-10 19:00)
DX: A41.9 Sepsis, unspecified organism (principal); M72.6 Necrotizing fasciitis; N17.9 Acute kidney failure, unspecified; E87.1 Hypo-osmolality and hyponatremia; M79.89 Other specified soft tissue disorders; E11.65 Type 2 diabetes mellitus with hyperglycemia; E11.42 Type 2 diabetes mellitus with diabetic polyneuropathy; E11.22 Type 2 diabetes mellitus with diabetic chronic kidney disease; I12.9 Hypertensive chronic kidney disease with stage 1 through stage 4 chronic kidney disease, or unspecified chronic kidney disease; N18.2 Chronic kidney disease, stage 2 (mild); Z89.431 Acquired absence of right foot; Z86.73 Personal history of transient ischemic attack (TIA), and cerebral infarction without residual deficits; E66.01 Morbid (severe) obesity due to excess calories; Z68.36 Body mass index [BMI] 36.0-36.9, adult; E78.00 Pure hypercholesterolemia, unspecified; Z79.4 Long term (current) use of insulin; Z79.82 Long term (current) use of aspirin; L60.3 Nail dystrophy; E78.5 Hyperlipidemia, unspecified; F17.220 Nicotine dependence, chewing tobacco, uncomplicated
CPT/HCPCS: 12345; 36415; 36416; 70486; 71045; 73701; 80048; 80053; 81001; 82962; 83036; 83605; 83735; 85025; 86140; 87040; 87070; 87077; 87186; 88304; 90471; 90714; 93005; 96372; 96375; 97161; 97530; 99282; J0131; J0153; J1644; J1815; J1956; J2001; J2020; J2250; J2543; J3010; J3475; J7030; J7040; J7050; J7060; J7120; J7799; Q9967

== ENCOUNTER 2019-08-16 07:43 | Outpatient (CLI) | payer MEDICARE, SELFPAY | END 2019-08-16 07:44 | disposition home or self-care (01) | PROVIDERS: PCP Family Medicine; Visit Provider Surgery | DX: E11.621 Type 2 diabetes mellitus with foot ulcer (principal); L97.423 Non-pressure chronic ulcer of left heel and midfoot with necrosis of muscle | CPT/HCPCS: 11043; A6446; G0463; L4387 ==

== ENCOUNTER 2019-08-21 13:23 | Outpatient (CLI) | payer MEDICARE, MEDICAID, SELFPAY | END 2019-08-21 13:24 | disposition home or self-care (01) | LOC: WOUND 13:24 | PROVIDERS: PCP Family Medicine; Visit Provider Thoracic Surgery (Cardiothoracic Vascular Surgery) | DX: E11.621 Type 2 diabetes mellitus with foot ulcer (principal); L97.525 Non-pressure chronic ulcer of other part of left foot with muscle involvement without evidence of necrosis; M72.6 Necrotizing fasciitis; M67.972 Unspecified disorder of synovium and tendon, left ankle and foot | CPT/HCPCS: G0463 ==

== ENCOUNTER 2019-08-21 16:14 | Inpatient (IN) | payer MEDICARE, SELFPAY ==
[2019-08-21] VITALS (8 sets, daily range): BP systolic 112–129; BP diastolic 64–77; PULSE 86–106; RESP 16–18; TEMP 36.7–36.8; O2SAT 91–97; BMI 36.4
--- NOTE | 2019-08-21 16:29 | XRR_ITS ---
PROCEDURE INFORMATION: Exam: XR Left Foot Complete Exam date and time: 08/21/2019 4:49 PM Age: 58 years old Clinical indication: Condition or disease; Other: Diabetic foot infection; Prior surgery; Additional info: Diabetic foot infection, stepped on nail 1 week ago TECHNIQUE: Imaging protocol: XR Left foot. Views: 3 or more views. COMPARISON: CR Foot 3 views, LEFT* [id number] 04/25/2017 9:03 AM FINDINGS: Bones/joints: The bones appear intact and in normal alignment. Degenerative changes of the ankle, intertarsal, and 1st metatarsophalangeal joints. Soft tissues: Large soft tissue ulceration in the plantar calcaneus with overlying bandage material. Mild dorsal soft tissue swelling of the foot. XR/XR foot LT min 3V* [id number] IMPRESSION: 1. Large heel ulceration. 2. No evidence for bone destruction or osteomyelitis.
[2019-08-21 17:18] LABS: Basophils # 0.1 10^3/uL (0.0-0.1); Basophils % 0.4 %; Eosinophils # 0.2 10^3/uL (0.0-0.8); Eosinophils % 1.8 %; Hematocrit 40.3 % (42.0-52.0); Hemoglobin 13.1 g/dL (11.7-16.6); Lymphocytes # 1.6 10^3/uL (0.8-4.8); Lymphocytes % 11.7 %; Mean Corpuscular HGB Conc 32.5 g/dL (30.0-36.0); Mean Corpuscular Hemoglobin 30.3 pg (28.0-34.0); Mean Corpuscular Volume 93.1 fL (80-94); Mean Platelet Volume 9.1 fL (7.4-10.4); Monocytes % 7.7 %; Neutrophils # 10.3 10^3/uL (1.8-7.7); Neutrophils % 76.8 %; Nucleated Red Blood Cells % 0 %; Platelet Count 556 10^3/cmm (130-400); Red Blood Count 4.33 10^6/uL (4.1-5.3); Red Cell Distribution Width 12.9 % (12.1-15.1); White Blood Count 13.4 10^3/uL (4.0-10.0)
--- NOTE | 2019-08-21 17:27 | ED_ITS ---
Documented by User: Danny Pat DO 08/23/19 14:14 HPI - Wound/Laceration General: Chief Complaint: Wound/Laceration Stated Complaint: foot pain Time Seen by Provider: 08/21/19 16:45 History of Present Illness: HPI narrative: 58-year-old male comes in after having stepped on a nail. He was seen about 7 to 10 days ago and admitted for incision and drainage of a puncture wound he was discharged after 2 days he is followed up in the wound clinic he comes in today with increasing redness in the heel and drainage she has the wound packed he was seen today in the wound care clinic by Kira and evidently directed to the emergency room. He is previously had a right forefoot amputation done by Dr. Archer. He has not noticed any drainage or fever from that but he does have packing in the wound. Onset (ago): day(s) (-) Extremity Location: Left: foot Place: home Patient tetanus UTD: Yes Context: accidental Associated symptoms: Reports other (Increasing redness at the heel); Denies chills, fever(s), nausea or vomiting Treatments prior to arrival: bandage Review of Systems Const: Denies: fever(s), chills, body aches, change in appetite, fatigue or malaise ENMT: Denies: throat pain, ear or mastoid pain, nasal discharge or nasal congestion Card: Denies: chest pain, edema, dyspnea on exertion or orthopnea Resp: Denies: dyspnea, productive cough or non-productive cough GI: Denies: abdominal pain, nausea, vomiting, hematemesis, coffee ground emesis, diarrhea, constipation, bloating, hematochezia or melena : Denies: flank pain, dysuria, urinary frequency or urinary urgency Skin/Breast: Denies: rash or pruritus PFSH ED PFSH: Medical History (Updated 08/22/19 @ 08:32 by Artur Roman MD) CKD stage 2 due to type 2 diabetes mellitus -CKD stage 2, Diabetes mellitus with hyperglycemia, with long-term current use of insulin -A1c-11.2 Diabetic peripheral neuropathy associated with type 2 diabetes mellitus -on gabapentin History of stroke hx of embolic CVA in 2006 -on ASA, statin Hypercholesteremia -on statin Hypertension Morbid obesity -BMI-36 kg/m2 Onychodystrophy Surgical History Amputation of right index finger in 2011 History of amputation of right foot History of knee surgery bilateral History of transmetatarsal amputation of right foot Family History Father CAD (coronary artery disease) Mother Diabetes Other Stroke Social History (Updated 08/21/19 @ 20:48 by Caio Ma MD) Smoking and tobacco status: former smoker Alcohol intake: never Lives independently: Yes Marital status: History of recent travel: No Physical Exam Const: COMMON NORMALS: no acute distress GENERAL APPEARANCE: cooperative and comfortable ORIENTATION/CONSCIOUSNESS: Yes awake, Yes oriented to person, Yes oriented to place and Yes oriented to time HENMT: COMMON NORMALS: normocephalic, atraumatic, hearing grossly normal bilaterally, moist oral mucous membranes and oropharynx normal HEAD & SCALP: normocephalic and atraumatic Eye: COMMON NORMALS: Equal, round and reactive pupils present, EOMs intact bilaterally, conjunctivae normal and no scleral icterus CONJUNCTIVA: Yes c onjunctivae normal PUPIL: Yes Equal, round and reactive pupils present Neck/C-Spine: COMMON NORMALS: full ROM, no lymphadenopathy, supple and no JVD Lymph: LYMPHATIC: no lymphadenopathy noted and no lymphedema noted Resp: COMMON NORMALS: normal respiratory effort, No retractions, No use of accessory muscles and clear to auscultation bilaterally AUSCULTATION: clear to auscultation bilaterally Cardio: COMMON NORMALS: no JVD, regular rate, regular rhythm and No murmurs present (Cardio) RATE: regular rate RHYTHM: regular rhythm GI: COMMON NORMALS: Soft to palpation and No hepatosplenomegaly present AUSCULTATION: Yes normoactive bowel sounds PALPATION: Yes Soft to palpation, No Tenderness to palpation present (GI), No Guarding due to palpation present (GI) and Yes No hepatosplenomegaly present Extremity: NARRATIVE EXTREMITY EXAM: Right foot has a previous partial forefoot amputation. Left foot bandage removed toes and foot is intact there is packing at the base of the heel with loop extending through a tunnel up into the instep. There is redness and erythema that appears to moving proximally there is no active drainage but it was not compressed. Neuro: SENSORIUM/ORIENTATION: Yes oriented to person, Yes oriented to place and Yes oriented to time Course Vital Signs: Vital signs: Vital Signs Temperature 97.7 F 08/23/19 11:18 Pulse Rate 75 08/23/19 11:18 Respiratory Rate 16 08/23/19 11:18 Blood Pressure 122/68 08/23/19 11:18 Pulse Oximetry 96 08/23/19 11:18 MDM - Wound/Laceration MDM Narrative: Medical decision making narrative: Care turned over to Dr. Olguin at change of shift see his notes for final diagnosis and disposition. Lab Data: Labs: Lab Results 08/21/19 08/21/19 08/21/19 Range/Units 17:00 17:00 17:00 WBC 13.4 H (4.0-10.0) 10^3/ uL RBC 4.33 (4.1-5.3) 10^6/u L Hgb 13.1 (11.7-16.6) g/dL Hct 40.3 L (42.0-52.0) % MCV 93.1 (80-94) fL MCH 30.3 (28.0-34.0) pg MCHC 32.5 (30.0-36.0) g/dL RDW 12.9 (12.1-15.1) % Plt Count 556 H (130-400) 10^3/c mm MPV 9.1 (7.4-10.4) fL Neut % (Auto) 76.8 % Lymph % (Auto) 11.7 % Grainger % (Auto) 7.7 % Eos % (Auto) 1.8 % Baso % (Auto) 0.4 % Neut # (Auto) 10.3 H (1.8-7.7) 10^3/u L Lymph # (Auto) 1.6 (0.8-4.8) 10^3/u L Grainger # (Auto) 1.0 H (0.2-0.9) 10^3/u L Eos # (Auto) 0.2 (0.0-0.8) 10^3/u L Baso # (Auto) 0.1 (0.0-0.1) 10^3/u L Nucleated RBC % (a uto) 0 % Nucleated RBCs # 0.0 /100WBC ESR 103 H (0-10) mm/hr Sodium 135 L (136-145) mmol/L Potassium 4.2 (3.5-5.1) mmol/L Chloride 95 L (98-107) mmol/L Carbon Dioxide 27 (22-29) mmol/L Anion Gap 17.2 (5-19) BUN 13 (6-20) mg/dL Creatinine 0.9 (0.7-1.2) mg/dL GFR Calculation 86.4 L (90-130) mL/min Glucose 299 H (65-115) mg/dL Calculated Osmolal ity 287 (285-295) mOsm/k g Lactate (0.5-2.2) mmol/L Calcium 9.5 (8.5-10.5) mg/dL Total Bilirubin 0.4 (0.15-1.2) mg/dL AST 10 (0-40) U/L ALT 8 (0-41) U/L Alkaline Phosphata se 110 (40-130) IU/L C-Reactive Protein 145.2 H (0.0-4.9) mg/L Total Protein 8.2 (6.6-8.7) g/dL Albumin 3.3 L (3.5-5.2) g/dL Globulin 4.9 H (1.3-4.6) g/dL 08/21/19 Range/Units 17:00 WBC (4.0-10.0) 10^3/ uL RBC (4.1-5.3) 10^6/u L Hgb (11.7-16.6) g/dL Hct (42.0-52.0) % MCV (80-94) fL MCH (28.0-34.0) pg MCHC (30.0-36.0) g/dL RDW (12.1-15.1) % Plt Count (130-400) 10^3/c mm MPV (7.4-10.4) fL Neut % (Auto) % Lymph % (Auto) % Grainger % (Auto) % Eos % (Auto) % Baso % (Auto) % Neut # (Auto) (1.8-7.7) 10^3/u L Lymph # (Auto) (0.8-4.8) 10^3/u L Grainger # (Auto) (0.2-0.9) 10^3/u L Eos # (Auto) (0.0-0.8) 10^3/u L Baso # (Auto) (0.0-0.1) 10^3/u L Nucleated RBC % (a uto) % Nucleated RBCs # /100WBC ESR (0-10) mm/hr Sodium (136-145) mmol/L Potassium (3.5-5.1) mmol/L Chloride (98-107) mmol/L Carbon Dioxide (22-29) mmol/L Anion Gap (5-19) BUN (6-20) mg/dL Creatinine (0.7-1.2) mg/dL GFR Calculation (90-130) mL/min Glucose (65-115) mg/dL Calculated Osmolal ity (285-295) mOsm/k g Lactate 1.2 (0.5-2.2) mmol/L Calcium (8.5-10.5) mg/dL Total Bilirubin (0.15-1.2) mg/dL AST (0-40) U/L ALT (0-41) U/L Alkaline Phosphata se (40-130) IU/L C-Reactive Protein (0.0-4.9) mg/L Total Protein (6.6-8.7) g/dL Albumin (3.5-5.2) g/dL Globulin (1.3-4.6) g/dL Discharge Plan Discharge Patient Disposition: Admitted As Inpatient Admit Provider: Caio Ma Clinical Impression: Cellulitis, Septic joint, Chronic ulcer of great 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 Condition: Stable Referrals: Thuan Hanks MD [Primary Care Provider] - Discharge Date/Time: 08/21/19 21:12 Coding Level of Care Code ED Activity Aid for Chg Fwd Exam Comprehensive Documented by User: Cullen Olguin MD 08/21/19 20:04 HPI - Wound/Laceration General: Chief Complaint: Wound/Laceration Stated Complaint: foot pain Time Seen by Provider: 08/21/19 16:45 PFSH ED PFSH: Medical History (Updated 08/22/19 @ 08:32 by Artur Roman MD) CKD stage 2 due to type 2 diabetes mellitus -CKD stage 2, Diabetes mellitus with hyperglycemia, with long-term current use of insulin -A1c-11.2 Diabetic peripheral neuropathy associated with type 2 diabetes mellitus -on gabapentin History of stroke hx of embolic CVA in 2006 -on ASA, statin Hypercholesteremia -on statin Hypertension Morbid obesity -BMI-36 kg/m2 Onychodystrophy Surgical History Amputation of right index finger in 2010 History of amputation of right foot History of knee surgery bilateral History of transmetatarsal amputation of right foot Family History Father CAD (coronary artery disease) Mother Diabetes Other Stroke Social History (Updated 08/21/19 @ 20:48 by Caio Ma MD) Smoking and tobacco status: former smoker Alcohol intake: never Lives independently: Yes Marital status: History of recent travel: No Course Vital Signs: Vital signs: Vital Signs Temperature 97.7 F 08/23/19 11:18 Pulse Rate 75 08/23/19 11:18 Respiratory Rate 16 08/23/19 11:18 Blood Pressure 122/68 08/23/19 11:18 Pulse Oximetry 96 08/23/19 11:18 MDM - Wound/Laceration MDM Narrative: Medical decision making narrative: Patient presents with cellulitis and CT showing possible septic joint. I spoke to Dr. Roman who is consulted and informed patient that he may need an amputation. I also spoke to Dr. Whaley who is admitting. Patient given IV antibiotics here and will admit. Patient has no signs of septic shock. Lab Data: Labs: Lab Results 08/21/19 08/21/19 08/21/19 Range/Units 17:00 17:00 17:00 WBC 13.4 H (4.0-10.0) 10^3/ uL RBC 4.33 (4.1-5.3) 10^6/u L Hgb 13.1 (11.7-16.6) g/dL Hct 40.3 L (42.0-52.0) % MCV 93.1 (80-94) fL MCH 30.3 (28.0-34.0) pg MCHC 32.5 (30.0-36.0) g/dL RDW 12.9 (12.1-15.1) % Plt Count 556 H (130-400) 10^3/c mm MPV 9.1 (7.4-10.4) fL Neut % (Auto) 76.8 % Lymph % (Auto) 11.7 % Grainger % (Auto) 7.7 % Eos % (Auto) 1.8 % Baso % (Auto) 0.4 % Neut # (Auto) 10.3 H (1.8-7.7) 10^3/u L Lymph # (Auto) 1.6 (0.8-4.8) 10^3/u L Grainger # (Auto) 1.0 H (0.2-0.9) 10^3/u L Eos # (Auto) 0.2 (0.0-0.8) 10^3/u L Baso # (Auto) 0.1 (0.0-0.1) 10^3/u L Nucleated RBC % (a uto) 0 % Nucleated RBCs # 0.0 /100WBC ESR 103 H (0-10) mm/hr Sodium 135 L (136-145) mmol/L Potassium 4.2 (3.5-5.1) mmol/L Chloride 95 L (98-107) mmol/L Carbon Dioxide 27 (22-29) mmol/L Anion Gap 17.2 (5-19) BUN 13 (6-20) mg/dL Creatinine 0.9 (0.7-1.2) mg/dL GFR Calculation 86.4 L (90-130) mL/min Glucose 299 H (65-115) mg/dL Calculated Osmolal ity 287 (285-295) mOsm/k g Lactate (0.5-2.2) mmol/L Calcium 9.5 (8.5-10.5) mg/dL Total Bilirubin 0.4 (0.15-1.2) mg/dL AST 10 (0-40) U/L ALT 8 (0-41) U/L Alkaline Phosphata se 110 (40-130) IU/L C-Reactive Protein 145.2 H (0.0-4.9) mg/L Total Protein 8.2 (6.6-8.7) g/dL Albumin 3.3 L (3.5-5.2) g/dL Globulin 4.9 H (1.3-4.6) g/dL 08/21/19 Range/Units 17:00 WBC (4.0-10.0) 10^3/ uL RBC (4.1-5.3) 10^6/u L Hgb (11.7-16.6) g/dL Hct (42.0-52.0) % MCV (80-94) fL MCH (28.0-34.0) pg MCHC (30.0-36.0) g/dL RDW (12.1-15.1) % Plt Count (130-400) 10^3/c mm MPV (7.4-10.4) fL Neut % (Auto) % Lymph % (Auto) % Grainger % (Auto) % Eos % (Auto) % Baso % (Auto) % Neut # (Auto) (1.8-7.7) 10^3/u L Lymph # (Auto) (0.8-4.8) 10^3/u L Grainger # (Auto) (0.2-0.9) 10^3/u L Eos # (Auto) (0.0-0.8) 10^3/u L Baso # (Auto) (0.0-0.1) 10^3/u L Nucleated RBC % (a uto) % Nucleated RBCs # /100WBC ESR (0-10) mm/hr Sodium (136-145) mmol/L Potassium (3.5-5.1) mmol/L Chloride (98-107) mmol/L Carbon Dioxide (22-29) mmol/L Anion Gap (5-19) BUN (6-20) mg/dL Creatinine (0.7-1.2) mg/dL GFR Calculation (90-130) mL/min Glucose (65-115) mg/dL Calculated Osmolal ity (285-295) mOsm/k g Lactate 1.2 (0.5-2.2) mmol/L Calcium (8.5-10.5) mg/dL Total Bilirubin (0.15-1.2) mg/dL AST (0-40) U/L ALT (0-41) U/L Alkaline Phosphata se (40-130) IU/L C-Reactive Protein (0.0-4.9) mg/L Total Protein (6.6-8.7) g/dL Albumin (3.5-5.2) g/dL Globulin (1.3-4.6) g/dL Imaging Data^: ct foot L: Attestation: I personally reviewed and interpreted this imaging study as follows: Radiologist's impression: [address] [place] [address] CT Scan Report Signed Patient: Yoandy Clemens III Unit #: [id number] : 1960 Age/Sex: 58 / M ADM Date: 08/21/19 Loc: ER Room/Bed: Attending Dr: Ordering Provider/Ordering MD: Danny Pat DO Date of Service: 08/21/19 Procedure(s): CT foot LT w con [id number] Accession Number(s): [id number] Report Number: [id number] PROCEDURE INFORMATION: Exam: CT Left Lower Extremity With Contrast, Foot Exam date and time: 08/21/2019 6:01 PM Age: 58 years old Clinical indication: Pain; Foot; Left; Prior surgery; Surgery date: 3-7 days post-operative; Surgery type: Stepped on nail; Additional info: Infection, osteomyelitis TECHNIQUE: Imaging protocol: CT of the Left lower extremity with intravenous contrast was performed. Exam focused on the foot. Radiation optimization: All CT scans at this facility use at least one of these dose optimization techniques: automated exposure control; mA and/or kV adjustment per patient size (includes targeted exams where dose is matched to clinical indication); or iterative reconstruction. Contrast material: VISI; Contrast volume: 95 ml; Contrast route: INTRAVENOUS (IV); COMPARISON: CR XR foot LT min 3V* [id number] 08/21/2019 4:36 PM RADIATION DOSE METRICS: Total DLP (mGy-cm): 236.59 FINDINGS: Bones/joints: Left ankle joint effusion which is distended and with synovial enhancement. There is scattered fluid and soft tissue gas bubbles posterior to the ankle joint and distal fibula, lateral and inferior to the calcaneus, and adjacent to the cuboid laterally. The bones are intact and in normal alignment. Mild scattered degenerative changes. No bone destruction visualized. Soft tissues: Diffuse subcutaneous soft tissue edema. Large laceration and skin defect in the plantar heel with packing material and or drain. Scattered gas bubbles and small pockets of fluid in the posterior muscle compartment of the calf. Fluid collection with scattered gas bubbles within and posterior to the peroneus tendon sheath, measuring 2.0 x 1[address]/CT foot LT w con [id number] IMPRESSION: 1. Large laceration and soft tissue defect in the plantar heel with drain and or packing material. 2. Distended ankle joint effusion with synovial enhancement. This may communicate with the subtalar joint as well. This is suspicious for a septic ankle joint. 3. Multiple small scattered fluid collections with gas bubbles within the posterior ankle, dorsal lateral foot, and in the deep muscle compartment of the calf. This is consistent with multiple small abscesses and possible necrotizing fasciitis. 4. Focal abscess with gas bubbles within and posterior to the peroneus tendons and sheath. 5. Diffuse edema/cellulitis of the lower leg and foot. 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
[2019-08-21 17:33] LABS: Alanine Aminotransferase 8 U/L (0-41); Albumin Level 3.3 g/dL (3.5-5.2); Alkaline Phosphatase 110 IU/L (40-130); Anion Gap 17.2 (5-19); Aspartate Amino Transferase 10 U/L (0-40); Blood Urea Nitrogen 13 mg/dL (6-20); C Reactive Protein 145.2 mg/L (0.0-4.9); Calcium 9.5 mg/dL (8.5-10.5); Carbon Dioxide 27 mmol/L (22-29); Chloride 95 mmol/L (98-107); Globulin 4.9 g/dL (1.3-4.6); Glomerular Filtration Rate 86.4 mL/min (90-130); Glucose 299 mg/dL (65-115); Osmolality Calculated 287 mOsm/kg (285-295); Potassium 4.2 mmol/L (3.5-5.1); Sodium 135 mmol/L (136-145); Total Bilirubin 0.4 mg/dL (0.15-1.2); Total Protein 8.2 g/dL (6.6-8.7)
[2019-08-21 17:34] LABS: Lactate (Lactic Acid level) 1.2 mmol/L (0.5-2.2)
--- NOTE | 2019-08-21 17:35 | CTR_ITS ---
PROCEDURE INFORMATION: Exam: CT Left Lower Extremity With Contrast, Foot Exam date and time: 08/21/2019 6:01 PM Age: 58 years old Clinical indication: Pain; Foot; Left; Prior surgery; Surgery date: 3-7 days post-operative; Surgery type: Stepped on nail; Additional info: Infection, osteomyelitis TECHNIQUE: Imaging protocol: CT of the Left lower extremity with intravenous contrast was performed. Exam focused on the foot. Radiation optimization: All CT scans at this facility use at least one of these dose optimization techniques: automated exposure control; mA and/or kV adjustment per patient size (includes targeted exams where dose is matched to clinical indication); or iterative reconstruction. Contrast material: VISI; Contrast volume: 95 ml; Contrast route: INTRAVENOUS (IV); COMPARISON: CR XR foot LT min 3V* [id number] 08/21/2019 4:36 PM RADIATION DOSE METRICS: Total DLP (mGy-cm): 236.59 FINDINGS: Bones/joints: Left ankle joint effusion which is distended and with synovial enhancement. There is scattered fluid and soft tissue gas bubbles posterior to the ankle joint and distal fibula, lateral and inferior to the calcaneus, and adjacent to the cuboid laterally. The bones are intact and in normal alignment. Mild scattered degenerative changes. No bone destruction visualized. Soft tissues: Diffuse subcutaneous soft tissue edema. Large laceration and skin defect in the plantar heel with packing material and or drain. Scattered gas bubbles and small pockets of fluid in the posterior muscle compartment of the calf. Fluid collection with scattered gas bubbles within and posterior to the peroneus tendon sheath, measuring 2.0 x 1[address]/CT foot LT w con [id number] IMPRESSION: 1. Large laceration and soft tissue defect in the plantar heel with drain and or packing material. 2. Distended ankle joint effusion with synovial enhancement. This may communicate with the subtalar joint as well. This is suspicious for a septic ankle joint. 3. Multiple small scattered fluid collections with gas bubbles within the posterior ankle, dorsal lateral foot, and in the deep muscle compartment of the calf. This is consistent with multiple small abscesses and possible necrotizing fasciitis. 4. Focal abscess with gas bubbles within and posterior to the peroneus tendons and sheath. 5. Diffuse edema/cellulitis of the lower leg and foot. Radiation Dose CTDIVOL = (mGy): DLP = 236.59 (mGy-cm)
[2019-08-21 18:01] LABS: Erythrocyte Sedimentation Rate 103 mm/hr (0-10)
[2019-08-21] MEDS: iodixanol 320 mg/mL 100mL Btl IV (18:12)
--- NOTE | 2019-08-21 19:11 | PC.NURSE ---
Patient report received from LYNDA Ruiz and care transferred to LYNDA Arvizu
[2019-08-21] MEDS: linezolid premix 600 MG/300 ML PREMIX 300 MG IV (19:26)
--- NOTE | 2019-08-21 19:44 | P.HP_ITS ---
Providers/Chief Complaint Primary Care Provider: Thuan Hanks MD Chief Complaint: foot pain History of Present Illness Yoandy Clemens III is a 58 year old male who has history of poorly controlled type 2 diabetes, latest A1c 11.2, status post right plantar midfoot amputation was recently discharged on 08/12 after open debridement of left foot for necrotizing fasciitis, Wound cultures have grown MSSA, enterobacter cloacae, gram-negative rods, he was discharged on p.o. Levaquin with home health services returning today with chief complaint of worsening pain and redness. Since his discharge he has been compliant with his medications, following up with wound care, has been getting home health services as well. He did not notice any fever, nausea, vomiting dysuria or diarrhea. For last few days he has been noticing increased swelling, pain and redness of left foot especially around his ankle joint, he has not noticed any purulent drainage however he feels pressure around his packing area. His pain is achy in nature radiating towards his calf muscle. He underwent cauterization and silver nitrate application on his wound for venous bleeding by Dr. Valiente as well. Diagnostics in the ER revealed leukocytosis without fever or tachycardia, high CRP, glucose 299, lactic 1.2 Imaging revealed septic joint without osteomyelitis changes however ESR is greater than 100 Dr. Roman has been consulted because on imaging gas was noticed along abscess, plan is to amputate the foot in the morning Review of Systems Const: Reports: chills, body aches and fatigue; Denies: fever(s) Eyes: Denies: change in vision ENMT: Denies: throat pain Card: Denies: chest pain Resp: Denies: dyspnea GI: Denies: abdominal pain, nausea, vomiting or diarrhea : Denies: flank pain Musc: Reports: extremity swelling, joint pain, joint swelling, joint redness, joint warmth, joint stiffness, limited range of motion, muscle cramps and muscle weakness; Denies: neck pain Skin/Breast: Reports: new lesions, lesions and changes in skin color Neuro: Reports: numbness in extremities and weakness in extremities; Denies: headache(s) Psych: Reports: depression; Denies: anxiety Endo: Denies: polyuria Austyn/Lymph: Denies: easy bruising All/Imm: Denies: urticaria Medications/Allergies Home Medications Medication Instructions Recorded Confirmed Last Taken Type aspirin 325 mg tablet 325 mg PO DAILY 05/09/19 08/21/19 08/20/19 History gabapentin 800 mg tablet 800 mg PO BID 05/09/19 08/21/19 08/21/19 History hydrocodone 5 mg-acetaminophen 325 1 tab PO TID PRN 05/09/19 08/21/19 08/21/19 History mg tablet linagliptin 5 mg tablet 5 mg PO DAILY #90 tab 05/09/19 08/21/19 08/21/19 Rx lisinopril 20 mg tablet 20 mg PO DAILY 05/09/19 08/21/19 08/21/19 History paroxetine HCl 20 mg tablet 20 mg PO BID tab 05/09/19 08/21/19 08/21/19 History pravastatin 40 mg tablet 40 mg PO DAILY 05/09/19 08/21/19 08/20/19 History levofloxacin 750 mg PO DAILY 10 Days #10 tab 08/13/19 08/21/19 08/21/19 Rx Lantus Solostar U-100 Insulin 50 unit SUBCUT DAILY 08/21/19 08/21/19 08/21/19 History Novolog Mix 70-30FlexPen U-100 See Rx Instructions .ROUTE .COMPLEX 08/21/19 08/21/19 08/21/19 History Allergies Allergy/AdvReac Type Severity Reaction Status Date / Time sulfamethoxazole Allergy ALGY-Rash Verified 08/10/19 18:38 [From Bactrim] trimethoprim [From Bactrim] Allergy ALGY-Rash Verified 08/10/19 18:38 vancomycin Allergy ALGY-Rash Verified 08/10/19 18:38 PFSH Acute PFSH: Medical History CKD stage 2 due to type 2 diabetes mellitus -CKD stage 2, Diabetes mellitus with hyperglycemia, with long-term current use of insulin -A1c-11.2 Diabetic peripheral neuropathy associated with type 2 diabetes mellitus -on gabapentin History of stroke hx of embolic CVA in 2006 -on ASA, statin Hypercholesteremia -on statin Hypertension Morbid obesity -BMI-36 kg/m2 Onychodystrophy Surgical History Amputation of right index finger in 2010 History of amputation of right foot History of knee surgery bilateral History of transmetatarsal amputation of right foot Family History Father CAD (coronary artery disease) Mother Diabetes Other Stroke Social History (Updated 08/21/19 @ 20:48 by Caio Ma MD) Smoking and tobacco status: former smoker Alcohol intake: never Lives independently: Yes Marital status: History of recent travel: No Vitals/I&O/Wt Last Vital Signs Temp 98.2 F 08/21/19 16:17 Pulse 90 08/21/19 19:16 Resp 16 08/21/19 19:16 BP 119/67 08/21/19 19:16 Pulse Ox 95 08/21/19 19:16 Weight last 48 hrs Weight 122.016 kg Physical Exam Narrative: EXAM NARRATIVE: Head to toe examination Morbidly obese male lying comfortably in left lateral position saturating well on room air Patient is upset about the plan of amputation, No active chest pain, S1, S2 no signs of heart failure Abdomen soft, distended, visceral obesity, soft without any signs of peritonitis Neurologically nonfocal exam Lungs are clear to auscultation without adventitious sounds Left ankle seems hyperemic, has packing material, 2 x 5 x 3 cm surgical wound on plantar surface, no active serosanguineous or purulent discharge, no excruciating pain to slight touch of calf muscle however ankle area is tender Right mid plantar foot amputation no open wound Patient is very upset and depressed EOMI, PERRLA Data : 08/21/19 17:00 08/21/19 17:00 Micro: Microbiology 08/21/19 17:00 Blood Culture - Preliminary Blood SPECIMEN COLLECTED 08/21/19 16:55 Blood Culture - Preliminary Blood SPECIMEN COLLECTED A&P Assessment and plan (1) Septic joint: Status: Acute (2) Gas gangrene: Status: Acute (3) Cellulitis: Status: Acute (4) Morbid obesity: Status: Acute (5) CKD stage 2 due to type 2 diabetes mellitus: Status: Inactive (6) Diabetes mellitus with hyperglycemia, with long-term current use of insulin: Status: Inactive Qualifiers: Diabetes mellitus type: type 2 Qualified Code(s): E11.65 - Type 2 diabetes mellitus with hyperglycemia; Z79.4 - care home (current) use of insulin Additional A&P Information Septic ankle joint Patient is afebrile, lactic acid is normal, systemically does not show signs of sepsis Focal abscess with gas bubble posterior to peroneal tendon sheath Dr. Roman has been consulted who is planning for amputation in the morning N.p.o. after midnight, would use linezolid, Zosyn along with fluid resuscitation Morphine for analgesia Recurrent necrotizing fasciitis Would cover adequately with antibiotics, no active signs of sepsis, plan for amputation of the foot Previous wound culture grew staph aureus, Enterobacter and Klebsiella Previous culture sensitivity reviewed Imaging reviewed Chronic kidney disease stage II Creatinine seems to be at baseline Poorly controlled type 2 diabetes recent A1c 11.2 I would hold sliding scale for now to avoid hypoglycemia His last Lantus dose was this morning, he takes 50 units in the morning, would avoid morning dose as he is planned for amputation Manage hyperglycemia with fluid resuscitation for now Hypertension Hold lisinopril because of plan for the surgery, I would use hydralazine on as needed basis for tonight Full code DVT prophylaxis to be avoided because of planned surgical intervention N.p.o. after midnight is very upset about the plan of amputation, she would like to be notified before surgery, she is requesting to be called in the morning Attestations Medical Necessity Statement*: Anticipating stay in the hospital cross more than 2 midnights currently suffering from septic joint recurrent necrotizing fasciitis, plan is for amputation of the foot Time Spent in Patient Care: (>than 50% of time spent in counselling and/or direct pt care on unit) . 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
[2019-08-21] MEDS: piperacillin-tazobactam 3.375 GM in sodium chloride 0.9% (plus) 50 ML IV (23:20)
[2019-08-21] MEDS: sodium chloride 0.9% 1,000 ML 75 ML IV (23:20)
[2019-08-22] VITALS (7 sets, daily range): BP systolic 93–116; BP diastolic 57–73; PULSE 72–90; RESP 16–24; TEMP 36.5–37.3; O2SAT 94–95
[2019-08-22 03:03] LABS: Glucose Point of Care 133 mg/dL (70-110)
[2019-08-22 05:07] LABS: Glucose Point of Care 132 mg/dL (70-110)
[2019-08-22 06:09] LABS: Basophils # 0.1 10^3/uL (0.0-0.1); Basophils % 0.5 %; Eosinophils # 0.4 10^3/uL (0.0-0.8); Eosinophils % 2.8 %; Hematocrit 38.8 % (42.0-52.0); Hemoglobin 12.6 g/dL (11.7-16.6); Lymphocytes # 1.6 10^3/uL (0.8-4.8); Lymphocytes % 11.6 %; Mean Corpuscular HGB Conc 32.5 g/dL (30.0-36.0); Mean Corpuscular Volume 95.3 fL (80-94); Mean Platelet Volume 9.4 fL (7.4-10.4); Monocytes # 0.9 10^3/uL (0.2-0.9); Monocytes % 6.4 %; Neutrophils # 10.8 10^3/uL (1.8-7.7); Neutrophils % 77.1 %; Nucleated Red Blood Cells % 0 %; Platelet Count 506 10^3/cmm (130-400); Red Blood Count 4.07 10^6/uL (4.1-5.3)
[2019-08-22 06:37] LABS: Anion Gap 17.1 (5-19); Blood Urea Nitrogen 11 mg/dL (6-20); Carbon Dioxide 26 mmol/L (22-29); Chloride 99 mmol/L (98-107); Glomerular Filtration Rate 86.4 mL/min (90-130); Glucose 163 mg/dL (65-115); Osmolality Calculated 286 mOsm/kg (285-295); Potassium 4.1 mmol/L (3.5-5.1); Sodium 138 mmol/L (136-145)
[2019-08-22] MEDS: piperacillin-tazobactam 3.375 GM in sodium chloride 0.9% (plus) 50 ML IV ×3 (06:51→22:18)
[2019-08-22] MEDS: linezolid premix 600 MG/300 ML PREMIX 300 MG IV ×2 (06:52→22:09)
--- NOTE | 2019-08-22 08:25 | P.CONIM_ITS ---
Providers/Reason For Consult Consulting Physican/Specialty*: Orthopedic surgeon Reason for Consult*: Orthopedic surgeon Attending Physician: Remedios Clemente MD Primary Care Provider: Thuan Hanks MD History of Present Illness History of Present Illness Yoandy Clemens III is a 58 year old male with poorly controlled diabetes who is been followed for a left foot abscess. He describes stepping on a nail back around August 07. He was seen in the emergency room with a plantar abscess was taken by Dr. Wolff to the OR on after debridement of a plantar ulcer with communication up into the medial ankle. He was then discharged on oral Levaquin. He initially was reportedly doing well. He was seen last Monday where things were. Reasonable. Apparently yesterday he was seen in wound clinic with concerns about increasing redness and erythema medially and laterally and was sent to the emergency room. A CT scan was obtained raising concerns about gas in his lateral tissues and he has been admitted to medicine. He has previously seen Dr. Archer however Dr. Archer is out of town orthopedics is asked to see the patient. Meds/Allergies Home Medications and Allergies Home Medications Medication Instructions Recorded Confirmed Last Taken Type aspirin 325 mg tablet 325 mg PO DAILY 05/09/19 08/21/19 08/20/19 History gabapentin 800 mg tablet 800 mg PO BID 05/09/19 08/21/19 08/21/19 History hydrocodone 5 mg-acetaminophen 325 1 tab PO TID PRN 05/09/19 08/21/19 08/21/19 History mg tablet linagliptin 5 mg tablet 5 mg PO DAILY #90 tab 05/09/19 08/21/19 08/21/19 Rx lisinopril 20 mg tablet 20 mg PO DAILY 05/09/19 08/21/19 08/21/19 History paroxetine HCl 20 mg tablet 20 mg PO BID tab 05/09/19 08/21/19 08/21/19 History pravastatin 40 mg tablet 40 mg PO DAILY 05/09/19 08/21/19 08/20/19 History levofloxacin 750 mg PO DAILY 10 Days #10 tab 08/13/19 08/21/19 08/21/19 Rx Lantus Solostar U-100 Insulin 50 unit SUBCUT DAILY 08/21/19 08/21/19 08/21/19 History Novolog Mix 70-30FlexPen U-100 See Rx Instructions .ROUTE .COMPLEX 08/21/19 08/21/19 08/21/19 History Allergies Allergy/AdvReac Type Severity Reaction Status Date / Time sulfamethoxazole Allergy ALGY-Rash Verified 08/10/19 18:38 [From Bactrim] trimethoprim [From Bactrim] Allergy ALGY-Rash Verified 08/10/19 18:38 vancomycin Allergy ALGY-Rash Verified 08/10/19 18:38 Current Medications Current Medications Generic Name Dose Route Start Last Admin Trade Name Freq PRN Reason Stop Dose Admin Sodium Chloride 1,000 mls @ 75 mls/hr 08/21/19 22:02 08/21/19 23:20 Sodium Chloride 0.9% IV 75 mls/hr .[id number] LASHELL Administration Linezolid 600 mg in 300 mls @ 300 mls/hr 08/22/19 07:30 08/22/19 06:52 Zyvox Premix IV 300 mls/hr Q12H LASHELL Administration Protocol Piperacillin Sod/Tazobactam 50 mls @ 12.5 mls/hr 08/21/19 22:30 08/22/19 06:51 Sod 3.375 gm/ Sodium Chloride IV 12.5 mls/hr Q8H LASHELL Administration Protocol PFSH Acute PFSH: Medical History (Updated 08/22/19 @ 08:32 by Artur Roman MD) CKD stage 2 due to type 2 diabetes mellitus -CKD stage 2, Diabetes mellitus with hyperglycemia, with long-term current use of insulin -A1c-11.2 Diabetic peripheral neuropathy associated with type 2 diabetes mellitus -on gabapentin History of stroke hx of embolic CVA in 2006 -on ASA, statin Hypercholesteremia -on statin Hypertension Morbid obesity -BMI-36 kg/m2 Onychodystrophy Surgical History Amputation of right index finger in 2010 History of amputation of right foot History of knee surgery bilateral History of transmetatarsal amputation of right foot Family History Father CAD (coronary artery disease) Mother Diabetes Other Stroke Social History (Updated 08/21/19 @ 20:48 by Caio Ma MD) Smoking and tobacco status: former smoker Alcohol intake: never Lives independently: Yes Marital status: History of recent travel: No Vitals/I&O/Wt Last Vital Signs Temp 98.0 F 08/22/19 07:30 Pulse 79 08/22/19 07:30 Resp 16 08/22/19 07:30 BP 116/70 08/22/19 07:30 Pulse Ox 95 08/22/19 07:30 08/21/19 08/22/19 08/22/19 22:59 06:59 14:59 Intake Total 300 / 300 290 / 590 Output Total 350 / 350 Balance 300 / 300 -60 / 240 Weight last 48 hrs Weight 269 lb Physical Exam Narrative: EXAM NARRATIVE: On examination of patient's left foot he has approximately a 1 x 3 cm open wound about his plantar heel that is packed and a small draining wound over the medial ankle. There is erythema over the medial hindfoot and lateral foot and ankle. There is no purulence I can express. There really is not much ankle effusion I can appreciate he freely moves his ankle without pain. Patient is insensate in the left foot. No other wounds are identified. He has a previous right transmetatarsal amputation. Data Micro: Micro: Microbiology 08/21/19 17:00 Blood Culture - Pr eliminary Blood SPECIMEN [facility] 08/21/19 16:55 Blood Culture - Pr eliminary Blood SPECIMEN [facility] Imaging^: Other CT: Radiologist's impression: I reviewed the CT report of the left foot dated 08/21/2019. The laceration along the plantar heel and medial packing is identified. The radiologist comments undistended ankle joint the radiologist suggests several small fluid collections with gas in the posterior ankle, dorsal lateral foot and over the peroneal tendons. A&P Assessment and plan (1) Abscess of left foot: I discussed treatment options with the patient. I told him if there is indeed bony or joint involvement amputation would be necessary. The patient is not interested in proceeding with below-knee amputation. I told him we could obtain an MRI to better delineate abscesses or gas in the tissues as the CT scan is certainly very limited in this diagnostic capacity. We can make appropriate treatment decisions based on the results of that study. I told him that even if this is mid to a soft tissue infection his failure to respond to antibiotics and debridement may necessitate amputation in any event. The patient seemed content and happy with this plan. We will follow-up after the MRI. Status: Acute Coding Level of Care Code Acute Ophthalmic Aide for g Fwd Diagnoses Abscess of left foot L02.612
[2019-08-22 10:38] LABS: Glucose Point of Care 224 mg/dL (70-110)
--- NOTE | 2019-08-22 10:48 | PC.CHAP ---
Pastoral Care Encounter/Spiritual Assessment Type of Contact [] Declined wrecking car driver visit [] Patient/Family/Request visit [] Outpatient visit [] Follow-up visit [] Physician referral [] Code/Alert [x] Routine visit [] Staff referral [] Actively dying [] Patient sleeping [] Family support [] [] Out of room [] Palliative care [] [] Receiving care in room [] Pre-surgical visit [] Trauma [] Long length of stay [] ICU visit [] Other: Relational/Emotional Strength [x] Patient feels connected with others/family/visitors/staff [] Distress [] Loneliness/isolation [] Abandonment Spirituality of Patient [] Person of Ludivina [] Attends Presybeterian of their Ludivina [] Believes in Prayer [] Reads Bible or Rastafarian materials [x] There are Spiritual issues to be addressed Control Clerk Interventions [x] Prayer [x] Active listening [x] Non-anxious presence [x] Spiritual/emotional support [] Crisis/trauma care [] Spiritual counseling [] Bereavement support [] Provided bereavement packet [] Provided Bible/devotional materials [] Provided toy/stuffed animal, coloring book to patient or family member [] Provided Communion [] Anointing/[place] [] Salvation [x] Completed spiritual assessment [] Other: Impact on Illness or Injury [] Angry [] Fearful [] Anxious [] Often cries [] Exhaustion [] Unable to work [] Unable to attend adventism [] Unable to walk/stand [] Unable to read [] Unable to drive [] Unable to eat/drink [] Unable to sleep [] Unable to be with family [] Patient intubated [x] Other: Summary Patient is a former [employer], who follows his own belief system. [employer] [place] was provided in part. Time spent with patient 10 minutes
[2019-08-22] MEDS: sodium chloride 0.9% 1,000 ML 75 ML IV (12:00)
--- NOTE | 2019-08-22 14:30 | MR_ITS ---
WS: [id number] INDICATION: Osteomyelitis TECHNIQUE: MRI of the left foot without and with gadolinium enhancement. Multiplanar and multisequenc e imaging without and with gadolinium enhancement. Post gadolinium imaging with fat saturation techni que. FINDINGS: Comparison CT August 21, 2019. Exam is significantly limited by patient motion. Again seen is the large laceration with soft tissue defect in the plantar heel .Moderate joint effusi on. Diffuse edema with subcutaneous enhancement and synovitis involving the lower leg and foot. Fatty T1 bone marrow signal appears preserved in the ankle and foot. Small amount of edema and enhancement involving the navicular and abutting lateral cuneiform and cuboid with small overlying fluid collect ion. No bony destruction. This is likely reactive but Recommend interval follow-up to exclude early o steomyelitis. Otherwise no evidence of osteomyelitis. Again seen is diffuse edema extending into the deep soft tissues with deep soft tissue and synovial e nhancement suspicious for necrotizing fasciitis. Peripheral enhancing fluid collections along the per snell and flexor compartment tendon sheath consistent with infectious synovitis. This is similar in a ppearance to the recent CT. Normal bone marrow signal in the talus. Tibiotalar and subtalar effusion. MR/MR foot LT wo/w con [id number] IMPRESSION: 1. Again seen is a laceration soft tissue defect in the plantar heel. No drain able abscess in this area. 2. Diffuse soft tissue edema with enhancement involving the lower leg and foot and ankle with synovial enhancement and deep soft tissue enhancement. Recommen d correlation for necrotizing fasciitis. 3. Small multifocal abscesses most prominent along the posterior peroneal tend on sheath. This is better evaluated on the recent CT due to motion artifact on today's examination, but appears stable. 4. Persistent diffuse enhancement and fluid along the peroneal and flexor tend on sheaths consistent with infectious synovitis. 5. Small amount of edema and enhancement involving the navicular and abutting lateral cuneiform and cuboid. This can be followed up with CT to assess for bon y destruction to exclude early osteomyelitis.
--- NOTE | 2019-08-22 18:39 | P.PN_ITS ---
Subjective Subjective: Interval history: Overnight labs and H&P reviewed. MRI of the foot awaited. Medications: Reviewed: Yes Vitals/I&O/Wt Last Vital Signs Temp 99.1 F 08/22/19 15:30 Pulse 76 08/22/19 15:30 Resp 16 08/22/19 15:30 BP 104/66 08/22/19 15:30 Pulse Ox 94 08/22/19 15:30 08/22/19 08/22/19 08/22/19 06:59 14:59 22:59 Intake Total 290 / 590 1000 / 1000 Output Total 350 / 350 Balance -60 / 240 1000 / 1000 Weight last 48 hrs Weight 122.016 kg Physical Exam Narrative: EXAM NARRATIVE: GEN: Awake, alert and oriented, no acute distress CVS: S1S2 N RS: CTA B/L Abd: Soft, nt/nd , bs+ CARPET RENOVATOR: no focal neuro deficits Data : 08/22/19 05:37 08/22/19 05:37 Micro: Microbiology 08/21/19 16:55 Blood Culture - Preliminary Blood NEGATIVE TO DATE 08/21/19 17:00 Blood Culture - Preliminary Blood NEGATIVE TO DATE A&P Assessment and plan (1) Septic joint: Status: Acute (2) Gas gangrene: Status: Acute (3) Cellulitis: Status: Acute (4) Morbid obesity: Status: Acute (5) CKD stage 2 due to type 2 diabetes mellitus: Status: Inactive (6) Diabetes mellitus with hyperglycemia, with long-term current use of insulin: Status: Inactive Qualifiers: Diabetes mellitus type: type 2 Qualified Code(s): E11.65 - Type 2 diabetes mellitus with hyperglycemia; Z79.4 - technician terminal and repeater (current) use of insulin Additional A&P Information Septic ankle joint Patient is afebrile, lactic acid is normal, systemically does not show signs of sepsis Focal abscess with gas bubble posterior to peroneal tendon sheath Dr. Roman has been consulted , plan for MRI for further evaluation. N.p.o. after midnight, continue zosyn and linezolid for now Morphine for analgesia Recurrent necrotizing fasciitis Would cover adequately with antibiotics, no active signs of sepsis, plan for amputation of the foot Previous wound culture grew staph aureus, Enterobacter and Klebsiella Previous culture sensitivity reviewed Chronic kidney disease stage II Creatinine seems to be at baseline Poorly controlled type 2 diabetes recent A1c 11.2 I would hold sliding scale for now to avoid hypoglycemia His last Lantus dose was this morning, he takes 50 units in the morning, would avoid morning dose as he is planned for amputation Manage hyperglycemia with fluid resuscitation for now Hypertension Hold lisinopril because of plan for the surgery, hydralazine on as needed basis Full code DVT prophylaxis to be avoided because of planned surgical intervention N.p.o. 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
[2019-08-22] MEDS: pneumococcal (23 valent) SDV 0.5 mL IM (18:50)
[2019-08-22 21:03] LABS: Glucose Point of Care 333 mg/dL (70-110)
[2019-08-23 03:33] LABS: Glucose Point of Care 271 mg/dL (70-110)
[2019-08-23 04:00] VITALS: BP 113/64; PULSE 68; RESP 20; TEMP 36.5; O2SAT 95
[2019-08-23] MEDS: piperacillin-tazobactam 3.375 GM in sodium chloride 0.9% (plus) 50 ML IV ×3 (06:38→22:13)
[2019-08-23] MEDS: linezolid premix 600 MG/300 ML PREMIX 300 MG IV ×2 (06:39→20:44)
[2019-08-23 07:07] LABS: Glucose Point of Care 322 mg/dL (70-110)
[2019-08-23 07:14] VITALS: BP 130/75; PULSE 76; RESP 16; TEMP 36.5; O2SAT 96
[2019-08-23 09:59] LABS: Glucose Point of Care 345 mg/dL (70-110)
[2019-08-23 11:03] LABS: Glucose Point of Care 310 mg/dL (70-110)
[2019-08-23 11:18] VITALS: BP 122/68; PULSE 75; RESP 16; TEMP 36.5; O2SAT 96
[2019-08-23] MEDS: sodium chloride 0.9% 1,000 ML 75 ML IV (13:47)
[2019-08-23 15:55] VITALS: BP 121/71; PULSE 81; RESP 16; TEMP 36.7; O2SAT 92
[2019-08-23 17:13] LABS: Glucose Point of Care 269 mg/dL (70-110)
--- NOTE | 2019-08-23 18:09 | P.PN_ITS ---
Subjective Subjective: Interval history: MRI foot shows diffuse soft tissue edema with enhancement along the lower token foot and ankle with synovial enhancement deep soft tissue enhancement. Small multifocal abscesses most prominent along the posterior peroneal tendon sheaths. Persistent diffuse enhancement and fluid along the peroneal and flexor tendon sheaths consistent with infectious syn ovitis. Medications: Reviewed: Yes Vitals/I&O/Wt Last Vital Signs Temp 98.0 F 08/23/19 15:55 Pulse 81 08/23/19 15:55 Resp 16 08/23/19 15:55 BP 121/71 08/23/19 15:55 Pulse Ox 92 08/23/19 15:55 08/23/19 08/23/19 08/23/19 06:59 14:59 22:59 Intake Total 1350 / 2700 890 / 890 240 / 1130 Output Total 550 / 870 400 / 400 Balance 800 / 1830 490 / 490 240 / 730 Physical Exam Narrative: EXAM NARRATIVE: GEN: Awake, alert and oriented, no acute distress CVS: S1S2 N RS: CTA B/L Abd: Soft, nt/nd , bs+ FAMILY DAY CARE PROVIDER: no focal neuro deficits Data : 08/22/19 05:37 08/22/19 05:37 Micro: Microbiology 08/21/19 16:55 Blood Culture - Preliminary Blood NEGATIVE TO DATE 08/21/19 17:00 Blood Culture - Preliminary Blood NEGATIVE TO DATE A&P Assessment and plan (1) Infectious synovitis: Status: Acute (2) Cellulitis: Status: Acute Qualifiers: Site of cellulitis: extremity Site of cellulitis of extremity: lower extremity Laterality: left Qualified Code(s): L03.116 - Cellulitis of left lower limb (3) Morbid obesity: Status: Acute (4) CKD stage 2 due to type 2 diabetes mellitus: Status: Inactive (5) Diabetes mellitus with hyperglycemia, with long-term current use of insulin: Status: Inactive Qualifiers: Diabetes mellitus type: type 2 Qualified Code(s): E11.65 - Type 2 diabetes mellitus with hyperglycemia; Z79.4 - correction (current) use of insulin Additional A&P Information Infectious sinusitis MRI ordered yesterday. Reports as above. Dr. Roman has been consulted , does not believe there is any signs of septic arthritis at this present time, deferred back to operating surgeon. continue zosyn and linezolid for now Morphine for analgesia Chronic kidney disease stage II Creatinine seems to be at baseline Poorly controlled type 2 diabetes recent A1c 11.2 His last Lantus dose was this morning, he takes 50 units in the morning, would avoid morning dose as he is planned for amputation Manage hyperglycemia with fluid resuscitation for now Hypertension Full code DVT prophylaxis lovenox Attestations Medical Necessity Statement*: need for iv abx for infectious synovitis Coding Level of Care Code Acute Technology Integration Specialist for [facility] Fwd Diagnoses Infectious synovitis M65.10 Cellulitis L03.116 Site of cellulitis: extremity Site of cellulitis of extremity: lower extremity Laterality: left Morbid obesity E66.01 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 Diabetes mellitus with hyperglycemia, with long-term current use of insulin E11.65; Z79.4 Diabetes mellitus type: type 2
[2019-08-23 20:00] VITALS: BP 107/65; PULSE 83; RESP 18; TEMP 37.3; O2SAT 91
[2019-08-23] MEDS: enoxaparin 40 mg/0.4 mL Syringe SUBCUT (20:44)
[2019-08-23 21:31] LABS: Glucose Point of Care 319 mg/dL (70-110)
[2019-08-24 01:34] VITALS: BP 123/65; PULSE 70; RESP 16; TEMP 36.5; O2SAT 95
[2019-08-24 05:25] VITALS: BP 103/53; PULSE 71; RESP 16; TEMP 36.4; O2SAT 95
[2019-08-24] MEDS: piperacillin-tazobactam 3.375 GM in sodium chloride 0.9% (plus) 50 ML IV ×3 (06:34→21:05)
[2019-08-24] MEDS: linezolid premix 600 MG/300 ML PREMIX 300 MG IV (06:35)
[2019-08-24] MEDS: sodium chloride 0.9% 1,000 ML 75 ML IV ×2 (06:35→20:24)
[2019-08-24 07:35] LABS: Glucose Point of Care 289 mg/dL (70-110)
[2019-08-24 07:48] VITALS: BP 148/79; PULSE 83; RESP 18; TEMP 36.2; O2SAT 96
--- NOTE | 2019-08-24 08:15 | PC.SOCIAL ---
IMM Page 2 of IMM explained to patient. Initialed, dated, and timed and placed in chart. Copy provided to patient.
[2019-08-24 11:53] LABS: Glucose Point of Care 309 mg/dL (70-110)
[2019-08-24 12:43] LABS: Basophils % 0.4 %; Eosinophils # 0.2 10^3/uL (0.0-0.8); Eosinophils % 1.6 %; Hematocrit 38.6 % (42.0-52.0); Hemoglobin 12.6 g/dL (11.7-16.6); Lymphocytes # 1.3 10^3/uL (0.8-4.8); Lymphocytes % 12.1 %; Mean Corpuscular HGB Conc 32.6 g/dL (30.0-36.0); Mean Corpuscular Hemoglobin 30.2 pg (28.0-34.0); Mean Corpuscular Volume 92.6 fL (80-94); Monocytes # 0.7 10^3/uL (0.2-0.9); Monocytes % 6.1 %; Neutrophils # 8.4 10^3/uL (1.8-7.7); Nucleated Red Blood Cells % 0 %; Platelet Count 522 10^3/cmm (130-400); Red Blood Count 4.17 10^6/uL (4.1-5.3); Red Cell Distribution Width 12.5 % (12.1-15.1); White Blood Count 10.6 10^3/uL (4.0-10.0)
[2019-08-24 13:00] VITALS: BP 114/67; PULSE 70; RESP 20; TEMP 36.3; O2SAT 95
[2019-08-24 13:04] LABS: Alanine Aminotransferase < 5 U/L (0-41); Albumin Level 3.1 g/dL (3.5-5.2); Alkaline Phosphatase 91 IU/L (40-130); Anion Gap 15.7 (5-19); Aspartate Amino Transferase 9 U/L (0-40); Blood Urea Nitrogen 7 mg/dL (6-20); Calcium 9.4 mg/dL (8.5-10.5); Carbon Dioxide 26 mmol/L (22-29); Chloride 95 mmol/L (98-107); Globulin 4.7 g/dL (1.3-4.6); Glomerular Filtration Rate 98.9 mL/min (90-130); Glucose 382 mg/dL (65-115); Osmolality Calculated 286 mOsm/kg (285-295); Potassium 4.7 mmol/L (3.5-5.1); Sodium 132 mmol/L (136-145); Total Bilirubin 0.4 mg/dL (0.15-1.2); Total Protein 7.8 g/dL (6.6-8.7)
[2019-08-24 17:00] VITALS: BP 124/66; PULSE 75; RESP 20; TEMP 37; O2SAT 95
[2019-08-24 17:25] LABS: Glucose Point of Care 228 mg/dL (70-110)
--- NOTE | 2019-08-24 17:37 | PC.NURSE ---
Vital signs entered for Krystol the nurses aid at 1600
[2019-08-24] MEDS: enoxaparin 40 mg/0.4 mL Syringe SUBCUT (17:52)
[2019-08-24 19:52] VITALS: BP 129/75; PULSE 76; RESP 18; TEMP 37.3; O2SAT 94
[2019-08-24 20:42] LABS: Glucose Point of Care 291 mg/dL (70-110)
--- NOTE | 2019-08-24 21:58 | P.PN_ITS ---
Subjective Subjective: Interval history: no acute events overnight. Wound appears unchanged overall Medications: Reviewed: Yes Vitals/I&O/Wt Last Vital Signs Temp 99.1 F 08/24/19 19:52 Pulse 76 08/24/19 19:52 Resp 18 08/24/19 19:52 BP 129/75 08/24/19 19:52 Pulse Ox 94 08/24/19 19:52 08/24/19 08/24/19 08/24/19 06:59 14:59 22:59 Intake Total 1410 / 3190 590 / 590 1290 / 1880 Output Total 1275 / 2375 825 / 825 1450 / 2275 Balance 135 / 815 -235 / -235 -160 / -395 Physical Exam Narrative: EXAM NARRATIVE: GEN: Awake, alert and oriented, no acute distress CVS: S1S2 N RS: CTA B/L Abd: Soft, nt/nd , bs+ RADIOLOGICAL EQUIPMENT SPECIALIST: no focal neuro deficits EXT: Per patient LE foor and ankle swlling appears to be improivng, howevre still continues to have pain over achilels tenson on palpation Data : 08/24/19 12:36 08/24/19 12:36 Micro: Microbiology 08/24/19 15:19 Gram Stain - Final Ankle - Wound A&P Assessment and plan (1) Infectious synovitis: Status: Acute (2) Cellulitis: Status: Acute Qualifiers: Laterality: left Site of cellulitis: extremity Site of cellulitis of extremity: lower extremity Qualified Code(s): L03.116 - Cellulitis of left lower limb (3) Morbid obesity: Status: Acute (4) CKD stage 2 due to type 2 diabetes mellitus: Status: Inactive (5) Diabetes mellitus with hyperglycemia, with long-term current use of insulin: Status: Inactive Qualifiers: Diabetes mellitus type: type 2 Qualified Code(s): E11.65 - Type 2 diabetes mellitus with hyperglycemia; Z79.4 - custodial (current) use of insulin Additional A&P Information Infectious synovitis MRI ordered per ortho recommendations, per ortho no current signs of septic arthritis at this present time, deferred back to operating surgeon. Prior cx reviwed- growing MSSA, enterobacter and Klebsiella, susceptibilities noted continue zosyn, d/c linezolid as no evidence of MRSA or resistant organisms Will obtain consult with podiatry- patient may still need debridement of current wound. FLoss has been left in the wound since the last surgery- unclear how long this is supposed to remain in place Will plan to transition to iv antibiotics upon discharge, based on priro cx all organisms susceptible to CTX, howevre given that he has been on FQs recently, will check wound swabs today yo assess for development of any potential resistance. Chronic kidney disease stage II Creatinine seems to be at baseline Poorly controlled type 2 diabetes recent A1c 11.2 Continue insulin Hypertension Full code DVT prophylaxis lovenox Attestations Medical Necessity Statement*: ongoing need for iv antibiotics Coding Level of Care Code Acute Filling Station Laborer for [facility] Fwd Diagnoses Infectious synovitis M65.10 Cellulitis L03.116 Laterality: left Site of cellulitis: extremity Site of cellulitis of extremity: lower extremity Morbid obesity E66.01 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 Diabetes mellitus with hyperglycemia, with long-term current use of insulin E11.65; Z79.4 Diabetes mellitus type: type 2
[2019-08-24] MEDS: insulin glargine 100 units/1 mL 20 UNIT SUBCUT (23:10)
[2019-08-25 01:00] VITALS: BP 116/68; PULSE 77; RESP 18; TEMP 36.4; O2SAT 95
[2019-08-25 04:09] VITALS: BP 134/76; PULSE 80; RESP 18; TEMP 36.6; O2SAT 97
[2019-08-25] MEDS: piperacillin-tazobactam 3.375 GM in sodium chloride 0.9% (plus) 50 ML IV ×3 (05:31→22:02)
[2019-08-25 06:36] LABS: Glucose Point of Care 237 mg/dL (70-110)
[2019-08-25 08:23] VITALS: BP 135/83; PULSE 78; RESP 20; TEMP 36.9; O2SAT 95
[2019-08-25] MEDS: gabapentin 400 mg Capsule 800 MG PO ×2 (09:15→18:16)
[2019-08-25] MEDS: PARoxetine 20 mg Tablet PO ×2 (09:15→18:16)
[2019-08-25] MEDS: aspirin 325 mg Tablet PO (09:15)
[2019-08-25] MEDS: atorvastatin 40 mg Tablet 20 MG PO (09:15)
[2019-08-25 11:18] VITALS: BP 143/79; PULSE 85; RESP 18; TEMP 36.5; O2SAT 97
[2019-08-25 11:32] LABS: Glucose Point of Care 315 mg/dL (70-110)
--- NOTE | 2019-08-25 16:15 | PM.PN ---
Subjective Subjective: Interval history: Afebrile, no acute overnight events. Undergoing dressing change. Linezolid discontinued yesterday. Medications: Reviewed: Yes Vitals/I&O/Wt Last Vital Signs Temp 97.7 F 08/25/19 11:18 Pulse 85 08/25/19 11:18 Resp 18 08/25/19 11:18 BP 143/79 08/25/19 11:18 Pulse Ox 97 08/25/19 11:18 08/25/19 08/25/19 08/25/19 06:59 14:59 22:59 Intake Total 250 / 2130 530 / 530 Output Total 1400 / 1400 Balance 250 / -145 -870 / -870 Physical Exam Narrative: EXAM NARRATIVE: GEN: Awake, alert and oriented, no acute distress CVS: S1S2 N RS: CTA B/L Abd: Soft, nt/nd , bs+ MANAGER LIFE SCIENCES: no focal neuro deficits Data : 08/24/19 12:36 08/24/19 12:36 Micro: Microbiology 08/24/19 15:19 Gram Stain - Final Ankle - Wound A&P Assessment and plan (1) Infectious synovitis: Status: Acute (2) Cellulitis: Status: Acute Qualifiers: Laterality: left Site of cellulitis: extremity Site of cellulitis of extremity: lower extremity Qualified Code(s): L03.116 - Cellulitis of left lower limb (3) Morbid obesity: Status: Acute (4) CKD stage 2 due to type 2 diabetes mellitus: Status: Inactive (5) Diabetes mellitus with hyperglycemia, with long-term current use of insulin: Status: Inactive Qualifiers: Diabetes mellitus type: type 2 Qualified Code(s): E11.65 - Type 2 diabetes mellitus with hyperglycemia; Z79.4 - terminal press operator (current) use of insulin Additional A&P Information Infectious synovitis MRI ordered per ortho recommendations, per ortho no current signs of septic arthritis at this present time, deferred back to surgical teams. Prior cx reviwed from August 09.- growing MSSA, enterobacter and Klebsiella, susceptibilities noted continue zosyn, d/c linezolid as no evidence of MRSA or resistant organisms Repeat wound cultures taken from deep swabs on 08/24/2019. Thus far Gram stain with few moderate gram-positive cocci in pairs and clusters. If patient undergoes further debridements, will be prudent to obtain OR cultures. Will obtain consult with podiatry- patient may still need debridement of current wound. FLoss has been left in the wound since the last surgery. Uncertain how long this needs to stay in place. Will plan to transition to iv antibiotics upon discharge, anticipate needing at least 3 to 4 weeks of the IV. Based on prior cx all organisms susceptible to Ceftriaxone, therefore 2g iv q24h may be an acceptable choice upon discharge, Assuming that pending cultures did not return with any resistant organisms. Chronic kidney disease stage II Creatinine seems to be at baseline Poorly controlled type 2 diabetes recent A1c 11.2, glargine resumed at 20 units subcutaneous bedtime yesterday. Mild insulin sliding scale will also converted to moderate. Will change to high-dose insulin sliding scale. Hypertension: Currently well controlled Full code DVT prophylaxis lovenox Attestations Medical Necessity Statement*: Needs ongoing admission for IV antibiotics, podiatry assessment tomorrow to assess for need for further debridements. Coding Level of Care Code Acute Quality Assurance Test Program Manager for [facility] Fwd Diagnoses Infectious synovitis M65.10 Cellulitis L03.116 Laterality: left Site of cellulitis: extremity Site of cellulitis of extremity: lower extremity Morbid obesity E66.01 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 Diabetes mellitus with hyperglycemia, with long-term current use of insulin E11.65; Z79.4 Diabetes mellitus type: type 2
[2019-08-25 17:12] LABS: Glucose Point of Care 348 mg/dL (70-110)
[2019-08-25 17:12] LABS: Glucose Point of Care 416 mg/dL (70-110)
[2019-08-25] MEDS: enoxaparin 40 mg/0.4 mL Syringe SUBCUT (18:16)
[2019-08-25 20:39] VITALS: BP 123/75; PULSE 78; RESP 17; TEMP 36.9; O2SAT 94
[2019-08-25 21:24] LABS: Glucose Point of Care 319 mg/dL (70-110)
[2019-08-25] MEDS: insulin glargine 100 units/1 mL 20 UNIT SUBCUT (22:03)
[2019-08-26 00:51] VITALS: BP 122/72; PULSE 72; RESP 18; TEMP 36.6; O2SAT 95
[2019-08-26 04:00] VITALS: BP 122/52; PULSE 73; RESP 18; TEMP 36.5; O2SAT 97
[2019-08-26 04:48] LABS: Basophils # 0.1 10^3/uL (0.0-0.1); Basophils % 0.7 %; Eosinophils # 0.3 10^3/uL (0.0-0.8); Eosinophils % 3.4 %; Hematocrit 40.8 % (42.0-52.0); Hemoglobin 13.4 g/dL (11.7-16.6); Lymphocytes # 2.1 10^3/uL (0.8-4.8); Lymphocytes % 21.3 %; Mean Corpuscular HGB Conc 32.8 g/dL (30.0-36.0); Mean Corpuscular Hemoglobin 30.8 pg (28.0-34.0); Mean Corpuscular Volume 93.8 fL (80-94); Mean Platelet Volume 9.1 fL (7.4-10.4); Monocytes # 0.7 10^3/uL (0.2-0.9); Monocytes % 6.8 %; Neutrophils # 6.6 10^3/uL (1.8-7.7); Neutrophils % 66.8 %; Nucleated Red Blood Cells % 0 %; Platelet Count 578 10^3/cmm (130-400); Red Blood Count 4.35 10^6/uL (4.1-5.3); Red Cell Distribution Width 12.3 % (12.1-15.1); White Blood Count 9.9 10^3/uL (4.0-10.0)
[2019-08-26 05:06] LABS: Alanine Aminotransferase < 5 U/L (0-41); Albumin Level 3.3 g/dL (3.5-5.2); Alkaline Phosphatase 93 IU/L (40-130); Anion Gap 16.3 (5-19); Aspartate Amino Transferase 12 U/L (0-40); Blood Urea Nitrogen 11 mg/dL (6-20); Calcium 9.6 mg/dL (8.5-10.5); Carbon Dioxide 28 mmol/L (22-29); Chloride 96 mmol/L (98-107); Globulin 4.8 g/dL (1.3-4.6); Glomerular Filtration Rate 86.4 mL/min (90-130); Glucose 257 mg/dL (65-115); Osmolality Calculated 287 mOsm/kg (285-295); Potassium 4.3 mmol/L (3.5-5.1); Sodium 136 mmol/L (136-145); Total Bilirubin 0.3 mg/dL (0.15-1.2); Total Protein 8.1 g/dL (6.6-8.7)
[2019-08-26] MEDS: piperacillin-tazobactam 3.375 GM in sodium chloride 0.9% (plus) 50 ML IV ×3 (06:14→22:06)
[2019-08-26 06:35] LABS: Glucose Point of Care 215 mg/dL (70-110)
--- NOTE | 2019-08-26 07:54 | P.CONIM_ITS ---
Providers/Reason For Consult Consulting Physican/Specialty*: Josh Archer D.P.M. Reason for Consult*: Left lower extremity wound with infection Attending Physician: Thuan Hanks MD Primary Care Provider: Thuan Hanks MD History of Present Illness History of Present Illness Yoandy Clemens III is a 58 year old diabetic male admitted for puncture wound left foot. Initial injury occurred approximately August 07 he states he stepped on a christa nail on his left foot he was unaware of this due to neuropathy states that it could have been there for more than 1 day. He was initially seen in the emergency department and admitted for necrotizing fasciitis, surgical debridement performed on 08/14/2019. He was discharged on levofloxacin, cultures taken significant for MSSA, Enterobacter and Klebsiella. Nursing visit at wound care the following Monday showed increased redness, drainage and devitalized tissue he was directed to the emergency department. Dr. Roman was consulted. Patient is well-known to me I have dealt with previous infections, I performed a transmetatarsal amputation on the right foot last year this remains healed. His current infection left foot is a new wound with acute infection, I was not alternative medicine practitioner during the entire time frame of this new acute wound, I was unavailable for consultation. Review of Systems General: Reports: 10 or more systems reviewed and unremarkable except in HPI and below Const: Denies: fever(s) or chills Card: Denies: chest pain or palpitations Resp: Denies: productive cough GI: Denies: abdominal pain, nausea or vomiting : Denies: flank pain Musc: Reports: extremity swelling, joint pain, joint stiffness, limited range of motion and deformity Skin/Breast: Reports: erythema, sores, nail changes and change in hair; Denies: rash Neuro: Reports: numbness in extremities, sensory changes and difficulty walking Psych: Denies: suicidal ideation Austyn/Lymph: Denies: easy bruising Meds/Allergies Home Medications and Allergies Home Medications Medication Instructions Recorded Confirmed Last Taken Type aspirin 325 mg tablet 325 mg PO DAILY 05/09/19 08/21/19 08/20/19 History gabapentin 800 mg tablet 800 mg PO BID 05/09/19 08/21/19 08/21/19 History hydrocodone 5 mg-acetaminophen 325 1 tab PO TID PRN 05/09/19 08/21/19 08/21/19 History mg tablet linagliptin 5 mg tablet 5 mg PO DAILY #90 tab 05/09/19 08/21/19 08/21/19 Rx lisinopril 20 mg tablet 20 mg PO DAILY 05/09/19 08/21/19 08/21/19 History paroxetine HCl 20 mg tablet 20 mg PO BID tab 05/09/19 08/21/19 08/21/19 History pravastatin 40 mg tablet 40 mg PO DAILY 05/09/19 08/21/19 08/20/19 History levofloxacin 750 mg PO DAILY 10 Days #10 tab 08/13/19 08/21/19 08/21/19 Rx Lantus Solostar U-100 Insulin 50 unit SUBCUT DAILY 08/21/19 08/21/19 08/21/19 History Novolog Mix 70-30FlexPen U-100 See Rx Instructions .ROUTE .COMPLEX 08/21/19 08/21/19 08/21/19 History Allergies Allergy/AdvReac Type Severity Reaction Status Date / Time sulfamethoxazole Allergy ALGY-Rash Verified 08/10/19 18:38 [From Bactrim] trimethoprim [From Bactrim] Allergy ALGY-Rash Verified 08/10/19 18:38 vancomycin Allergy ALGY-Rash Verified 08/10/19 18:38 Current Medications Current Medications Generic Name Dose Route Start Last Admin Trade Name Freq PRN Reason Stop Dose Admin Aspirin 325 mg 08/25/19 09:00 08/25/19 09:15 Aspirin PO 325 mg DAILY LASHELL Administration Atorvastatin Calcium 20 mg 08/25/19 09:00 08/25/19 09:15 Lipitor PO 20 mg DAILY LASHELL Administration Enoxaparin Sodium 40 mg 08/23/19 18:30 08/25/19 18:16 Lovenox SUBCUT 40 mg Q24H LASHELL Administration Gabapentin 800 mg 08/25/19 09:00 08/25/19 18:16 Neurontin PO 800 mg BID LASHELL Administration Piperacillin Sod/Tazobactam 50 mls @ 12.5 mls/hr 08/21/19 22:30 08/26/19 06:14 Sod 3.375 gm/ Sodium Chloride IV 12.5 mls/hr Q8H LASHELL Administration Protocol Insulin Aspart 0 unit 08/25/19 08:00 08/25/19 22:03 Novolog SUBCUT 12 unit WM&BEDTIME LASHELL Administration Protocol Insulin Aspart 0 unit 08/25/19 18:00 08/26/19 06:14 Novolog SUBCUT Not Given WM&BEDTIME LASHELL Protocol Insulin Glargine 20 unit 08/24/19 23:00 08/25/19 22:03 Lantus SUBCUT 20 unit BEDTIME LASHELL Administration Paroxetine HCl 20 mg 08/25/19 09:00 08/25/19 18:16 Paxil PO 20 mg BID LASHELL Administration PFSH Acute PFSH: Medical History CKD stage 2 due to type 2 diabetes mellitus -CKD stage 2, Diabetes mellitus with hyperglycemia, with long-term current use of insulin -A1c-11.2 Diabetic peripheral neuropathy associated with type 2 diabetes mellitus -on gabapentin History of stroke hx of embolic CVA in 2006 -on ASA, statin Hypercholesteremia -on statin Hypertension Morbid obesity -BMI-36 kg/m2 Onychodystrophy Surgical History Amputation of right index finger in 2010 History of amputation of right foot History of knee surgery bilateral History of transmetatarsal amputation of right foot Family History Father CAD (coronary artery disease) Mother Diabetes Other Stroke Social History Smoking and tobacco status: former smoker Alcohol intake: never Lives independently: Yes Marital status: History of recent travel: No Vitals/I&O/Wt Last Vital Signs Temp 97.7 F 08/26/19 04:00 Pulse 73 08/26/19 04:00 Resp 18 08/26/19 04:00 BP 122/52 08/26/19 04:00 Pulse Ox 97 08/26/19 04:00 08/25/19 08/26/19 08/26/19 22:59 06:59 14:59 Intake Total 530 / 1060 50 / 1110 Output Total 1500 / 2900 650 / 3550 Balance -970 / -1840 -600 / -2440 Physical Exam Narrative: EXAM NARRATIVE: GENERAL: Patient is alert and oriented ?3 and in no acute distress. The following is a focused bilateral lower extremity exam. VASCULAR: Dorsalis pedis and posterior tibial arteries palpable +2. Capillary refill time less than 3 seconds to the distal hallux left foot and less than 3 seconds to the right TMA stump. Calf is supple and nontender proximally and distally. Diminished hair growth at bilateral legs and feet. NEUROLOGICAL: Protective sensation intact 0/10 sites, tested with [place] Simon monofilament to bilateral feet. DERMATOLOGICAL: Puncture wound portal of entry left plantar medial heel exposed to muscle and fat, wound tunnels superiorly near the level of the medial malleolus there are vessel loops and packing in the wound, packing removed there is no significant purulent drainage no malodor there is periwound erythema localized at the medial heel and ankle without proximal lymphangitic streaking. No malodor present. No other wounds, no wounds to the right lower extremity. MUSCULOSKELETAL: Pain to palpation about the tarsal tunnel left foot. Status post right transmetatarsal amputation. There is minor tenderness with range of motion in all 3 cardinal planes to the left foot and ankle. Data Labs: Other Labs: Wound swab taken August 23 pending. Wound culture taken 08/09 significant for MSSA, Enterobacter and Klebsiella. Most recent x-rays taken August 20- for osteomyelitis, foreign body or soft tissue emphysema. Most recent CT scan performed August 20 left foot was suspicious for septic ankle. Fluid collection with air in the posterior lower leg.MRI left lower extremity taken August 21- for any obvious osteomyelitis. 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 Recommended amount of devitalized tissue to the left lower extremity with surgical wound cultures. Patient is agreeable wishes to proceed. This will be scheduled for tomorrow at noon. Patient to be n.p.o. after midnight. Currently on Zosyn. If wound is clean will apply wound VAC. Agree with recommendation for PICC line and IV antibiotics on discharge. Will need wound care consult on discharge as well. At this time he is to be nonweightbearing to the left lower extremity is to elevate left foot while at rest. Dressing perform saline wet-to-dry. Consult Attestations Medical Necessity Statement: Infected wound left lower extremity secondary to puncture wound. Coding Level of Care Code Acute Estate Planning Counselor for [facility] Diagnoses Infectious synovitis M65.10 Abscess of left foot L02.612 Non-pressure chronic ulcer of left ankle with necrosis of muscle L97.323 Chronic ulcer of left heel with necrosis of muscle L97.423 Puncture wound of skin from metal nail W45.0XXA
[2019-08-26 08:00] VITALS: BP 133/79; PULSE 75; RESP 18; TEMP 36.7; O2SAT 96
[2019-08-26] MEDS: PARoxetine 20 mg Tablet PO ×2 (08:44→17:55)
[2019-08-26] MEDS: gabapentin 400 mg Capsule 800 MG PO ×2 (08:44→17:55)
[2019-08-26] MEDS: atorvastatin 40 mg Tablet 20 MG PO (08:44)
[2019-08-26] MEDS: aspirin 325 mg Tablet PO (08:44)
[2019-08-26 11:40] LABS: Glucose Point of Care 367 mg/dL (70-110)
--- NOTE | 2019-08-26 11:52 | PM.PN ---
Subjective Subjective: Interval history: Patient seems to be doing well. Appreciate Dr. Archer's consultation. Blood sugars are running a bit high but this is relatively normal for him. Apparently at home he has been maintaining between 180 and 220 recently. According to him this is the goals that his concert singer gave him. He denies any chest pain or shortness of breath at this time. No fevers. Medications: Reviewed: Yes Medication Review Details: Current Medications Acetaminophen (Tylenol) 650 mg PO Q4H PRN PRN Reason: MILD PAIN OR INCREASE TEMP Hydrocodone Bitart/Acetaminophen ([place] 5-325 Mg) 1 tab PO Q4H PRN PRN Reason: MODERATE PAIN Aspirin (Aspirin) 325 mg PO DAILY [facility] Last Admin: 08/26/19 08:44 Dose: 325 mg Documented by: Atorvastatin Calcium (Lipitor) 20 mg PO DAILY LASHELL Last Admin: 08/26/19 08:44 Dose: 20 mg Documented by: Dextrose (D50w) 25 ml IVP ONCE PRN; Protocol PRN Reason: hypoglycemia protocol Dextrose (D50w) 50 ml IVP PRN PRN; Protocol PRN Reason: hypoglycemia protocol Enoxaparin Sodium (Lovenox) 40 mg SUBCUT Q24H LASHELL Last Admin: 08/25/19 18:16 Dose: 40 mg Documented by: Gabapentin (Neurontin) 800 mg PO BID LASHELL Last Admin: 08/26/19 08:44 Dose: 800 mg Documented by: Glucagon (Glucagen) 1 mg IM ONCE PRN; Protocol PRN Reason: Adult Acute Hypoglycemia Prot. Hydralazine HCl (Apresoline) 5 mg IVP Q4H PRN PRN Reason: SBP>170 Piperacillin Sod/Tazobactam (Sod 3.375 gm/ Sodium Chloride) 50 mls @ 12.5 mls/hr IV Q8H LASHELL; Protocol Last Admin: 08/26/19 06:14 Dose: 12.5 mls/hr Documented by: Dextrose (D5w) 500 mls @ 100 mls/hr IV ONCE PRN; Protocol PRN Reason: Adult Acute Hypoglycemia Prot Insulin Aspart (Novolog) 0 unit SUBCUT WM&BEDTIME LASHELL; Protocol Last Admin: 08/26/19 06:14 Dose: Not Given Documented by: Insulin Glargine (Lantus) 20 unit SUBCUT BEDTIME LASHELL Last Admin: 08/25/19 22:03 Dose: 20 unit Documented by: Paroxetine HCl (Paxil) 20 mg PO BID LASHELL Last Admin: 08/26/19 08:44 Dose: 20 mg Documented by: Vitals/I&O/Wt Last Vital Signs Temp 98.0 F 08/26/19 08:00 Pulse 75 08/26/19 08:00 Resp 18 08/26/19 08:00 BP 133/79 08/26/19 08:00 Pulse Ox 96 08/26/19 08:00 08/25/19 08/26/19 08/26/19 22:59 06:59 14:59 Intake Total 530 / 1110 50 / 1110 Output Total 1500 / 3550 650 / 3550 Balance -970 / -2440 -600 / -2440 Physical Exam Narrative: EXAM NARRATIVE: General: No acute distress, Alert. Well nourished. Heart: Regular rate and rhythm. No murmurs, rubs or gallops. Normal capillary refill. Lungs: Clear to auscultation. No wheezes, rhonchi or rales. Abdomen: Positive bowel sounds. Non-tender, non-distended. No hepatosplenomegaly. No gaurding. Extremities: No clubbing, cyanosis, or edema. Negative Richelle's Data : 08/26/19 04:27 08/26/19 04:27 A&P Assessment and plan (1) Infectious synovitis: Appreciate Dr. Archer's consultation. We will continue his IV antibiotics. Disposition per Dr. Archer's recommendations. Status: Acute (2) Abscess of left foot: . Status: Acute (3) Diabetes mellitus with hyperglycemia, with long-term current use of insulin: Overall stable. 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 He is requiring continued inpatient surgery and IV treatments. Coding Level of Care Code Acute Supervisor Telephone Information for [facility] Diagnoses Infectious synovitis M65.10 Abscess of left foot L02.612 Diabetes mellitus with hyperglycemia, with long-term current use of insulin E11.65; Z79.4 Diabetes mellitus type: type 2 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
[2019-08-26 12:00] VITALS: BP 133/78; PULSE 80; RESP 18; TEMP 36.7; O2SAT 96
[2019-08-26 15:36] VITALS: BP 122/79; PULSE 76; RESP 18; TEMP 36.6; O2SAT 91
[2019-08-26 17:00] LABS: Glucose Point of Care 303 mg/dL (70-110)
[2019-08-26] MEDS: enoxaparin 40 mg/0.4 mL Syringe SUBCUT (17:55)
[2019-08-26 20:00] VITALS: BP 104/63; PULSE 79; RESP 20; TEMP 36.7; O2SAT 96
[2019-08-26 22:46] LABS: Glucose Point of Care 229 mg/dL (70-110)
[2019-08-26] MEDS: insulin glargine 100 units/1 mL 20 UNIT SUBCUT (22:52)
[2019-08-27] VITALS (10 sets, daily range): BP systolic 88–135; BP diastolic 50–80; PULSE 69–114; RESP 16–22; TEMP 36.1–36.7; O2SAT 92–97
[2019-08-27] MEDS: piperacillin-tazobactam 3.375 GM in sodium chloride 0.9% (plus) 50 ML IV ×3 (05:31→22:35)
--- NOTE | 2019-08-27 06:32 | PM.PN ---
Subjective Subjective: Interval history: Patient seen bedside this morning, he is n.p.o. in preparation for surgery today. Planning on incision and debridement with wound exploration and deep tissue culture. Patient denies any acute events overnight. Patient denies any subjective nausea, vomiting, fever, chills, shortness of breath or chest pain. Vitals/I&O/Wt Last Vital Signs Temp 98.1 F 08/27/19 00:00 Pulse 80 08/27/19 00:00 Resp 18 08/27/19 00:00 BP 88/50 08/27/19 00:00 Pulse Ox 97 08/27/19 00:00 08/26/19 08/26/19 08/27/19 14:59 22:59 06:59 Intake Total 350 / 350 290 / 640 50 / 690 Output Total 1250 / 1250 300 / 1550 Balance 350 / 350 -960 / -610 -250 / -860 Physical Exam Narrative: EXAM NARRATIVE: GENERAL: Patient is alert and oriented ?3 and in no acute distress. The following is a focused bilateral lower extremity exam. VASCULAR: Dorsalis pedis and posterior tibial arteries palpable +2. Capillary refill time less than 3 seconds to the distal hallux left foot and less than 3 seconds to the right TMA stump. Calf is supple and nontender proximally and distally. Diminished hair growth at bilateral legs and feet. NEUROLOGICAL: Protective sensation intact 0/10 sites, tested with [place] Simon monofilament to bilateral feet. DERMATOLOGICAL: Puncture wound portal of entry left plantar medial heel exposed to muscle and fat, wound tunnels superiorly near the level of the medial malleolus there are vessel loops and packing in the wound, packing removed there is no significant purulent drainage no malodor there is periwound erythema localized at the medial heel and ankle without proximal lymphangitic streaking. No malodor present. No other wounds, no wounds to the right lower extremity. MUSCULOSKELETAL: Pain to palpation about the tarsal tunnel left foot. Status post right transmetatarsal amputation. There is minor tenderness with range of motion in all 3 cardinal planes to the left foot and ankle. Data : 08/26/19 04:27 08/26/19 04:27 Micro: Microbiology 08/24/19 15:19 Gram Stain - Final Ankle - Wound Wound Culture - Preliminary 08/21/19 17:00 Blood Culture - Final Blood NO GROWTH AFTER 5 DAYS 08/21/19 16:55 Blood Culture - Final Blood NO GROWTH AFTER 5 DAYS A&P Assessment and plan (1) Infectious synovitis: Status: Acute (2) Abscess of left foot: Status: Acute (3) Diabetes mellitus with hyperglycemia, with long-term current use of insulin: Status: Acute Qualifiers: Diabetes mellitus type: type 2 Qualified Code(s): E11.65 - Type 2 diabetes mellitus with hyperglycemia; Z79.4 - intermediate card tender (current) use of insulin (4) CKD stage 2 due to type 2 diabetes mellitus: Status: Acute Patient is n.p.o. for surgical debridement, deep tissue culture and wound exploration scheduled today at noon. Discussed risks versus benefits. Patient is agreeable wishes to proceed. Planning on primary delayed closure and possible wound VAC, PICC line on discharge. 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
--- NOTE | 2019-08-27 06:49 | PM.PN ---
Subjective Subjective: Interval history: Doing well. No chest pain or shortness of breath. Blood sugars in the low 200s. No fevers or chills. Pain seems well controlled. Ready for surgery today.. Medications: Reviewed: Yes Medication Review Details: Current Medications Acetaminophen (Tylenol) 650 mg PO Q4H PRN PRN Reason: MILD PAIN OR INCREASE TEMP Hydrocodone Bitart/Acetaminophen ([place] 5-325 Mg) 1 tab PO Q4H PRN PRN Reason: MODERATE PAIN Aspirin (Aspirin) 325 mg PO DAILY [facility] Last Admin: 08/26/19 08:44 Dose: 325 mg Documented by: Atorvastatin Calcium (Lipitor) 20 mg PO DAILY [facility] Last Admin: 08/26/19 08:44 Dose: 20 mg Documented by: Dextrose (D50w) 25 ml IVP ONCE PRN; Protocol PRN Reason: hypoglycemia protocol Dextrose (D50w) 50 ml IVP PRN PRN; Protocol PRN Reason: hypoglycemia protocol Enoxaparin Sodium (Lovenox) 40 mg SUBCUT Q24H [facility] Last Admin: 08/25/19 18:16 Dose: 40 mg Documented by: Gabapentin (Neurontin) 800 mg PO BID [facility] Last Admin: 08/26/19 08:44 Dose: 800 mg Documented by: Glucagon (Glucagen) 1 mg IM ONCE PRN; Protocol PRN Reason: Adult Acute Hypoglycemia Prot. Hydralazine HCl (Apresoline) 5 mg IVP Q4H PRN PRN Reason: SBP>170 Piperacillin Sod/Tazobactam (Sod 3.375 gm/ Sodium Chloride) 50 mls @ 12.5 mls/hr IV Q8H [facility]; Protocol Last Admin: 08/26/19 06:14 Dose: 12.5 mls/hr Documented by: Dextrose (D5w) 500 mls @ 100 mls/hr IV ONCE PRN; Protocol PRN Reason: Adult Acute Hypoglycemia Prot Insulin Aspart (Novolog) 0 unit SUBCUT WM&BEDTIME [facility]; Protocol Last Admin: 08/26/19 06:14 Dose: Not Given Documented by: Insulin Glargine (Lantus) 20 unit SUBCUT BEDTIME [facility] Last Admin: 08/25/19 22:03 Dose: 20 unit Documented by: Paroxetine HCl (Paxil) 20 mg PO BID [facility] Last Admin: 08/26/19 08:44 Dose: 20 mg Documented by: Vitals/I&O/Wt Last Vital Signs Temp 98.1 F 08/27/19 00:00 Pulse 80 08/27/19 00:00 Resp 18 08/27/19 00:00 BP 88/50 08/27/19 00:00 Pulse Ox 97 08/27/19 00:00 08/26/19 08/26/19 08/27/19 14:59 22:59 06:59 Intake Total 350 / 690 290 / 690 50 / 690 Output Total 1250 / 1550 300 / 1550 Balance 350 / -860 -960 / -860 -250 / -860 Physical Exam Narrative: EXAM NARRATIVE: General: No acute distress, Alert. Well nourished. Heart: Regular rate and rhythm. No murmurs, rubs or gallops. Normal capillary refill. Lungs: Clear to auscultation. No wheezes, rhonchi or rales. Abdomen: Positive bowel sounds. Non-tender, non-distended. No hepatosplenomegaly. No gaurding. Extremities: No clubbing, cyanosis, or edema. Negative Richelle's Data : 08/26/19 04:27 08/26/19 04:27 Micro: Microbiology 08/24/19 15:19 Gram Stain - Final Ankle - Wound Wound Culture - Preliminary 08/21/19 17:00 Blood Culture - Final Blood NO GROWTH AFTER 5 DAYS 08/21/19 16:55 Blood Culture - Final Blood NO GROWTH AFTER 5 DAYS A&P Assessment and plan (1) Infectious synovitis: Appreciate Dr. Archer's consultation. We will continue his IV antibiotics. Proceed with surgery today. We will plan for long-term IV antibiotics as an outpatient. Plan for PICC line placement today. Disposition per Dr. Archer's recommendations. Status: Acute (2) Abscess of left foot: . Status: Acute (3) Diabetes mellitus with hyperglycemia, with long-term current use of insulin: Overall stable. 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 Coding Level of Care Code Acute Auto Service Mechanic for g Fwd Diagnoses Infectious synovitis M65.10 Abscess of left foot L02.612 Diabetes mellitus with hyperglycemia, with long-term current use of insulin E11.65; Z79.4 Diabetes mellitus type: type 2 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
[2019-08-27 07:42] LABS: Glucose Point of Care 262 mg/dL (70-110)
[2019-08-27 08:15] LABS: Magnesium 2.5 mg/dL (1.7-2.3)
[2019-08-27] MEDS: PARoxetine 20 mg Tablet PO ×2 (09:22→18:14)
[2019-08-27] MEDS: aspirin 325 mg Tablet PO (09:22)
[2019-08-27] MEDS: gabapentin 400 mg Capsule 800 MG PO ×2 (09:22→18:14)
[2019-08-27] MEDS: atorvastatin 40 mg Tablet 20 MG PO (09:22)
[2019-08-27] MEDS: sodium chloride 0.9% 1,000 ML 100 ML IV (09:29)
[2019-08-27 10:52] LABS: Glucose Point of Care 225 mg/dL (70-110)
--- NOTE | 2019-08-27 11:15 | PC.NURSE ---
patient taken to get PICC placed.
--- NOTE | 2019-08-27 11:47 | P.ANESASSM_ITS ---
Pre-Anesthetic Assessment Pre-Anesthetic Assessment: Height/Weight: Height 1.83 m Weight 122.016 kg Temp Pulse Resp BP Pulse Ox 97.6 F 70 18 111/71 95 08/27/19 11:47 08/27/19 11:47 08/27/19 11:47 08/27/19 11:47 08/27/19 11:47 Preop Diagnosis: Left Diabetic foot soft tissue infection Proposed Procedure: Operation Date: 08/27/19 12:00 Proposed Procedures p Incision And Drainage left foot(Left) - Josh Archer DPM Familial anesthetic complications: none Was Beta Philippe taken within 24 hours: N/A Last intake: Intake Last Liquid Date 08/27/19 Last Liquid Time 00:00 Last Solid Date 08/27/19 Last Solid Time 00:00 Social: Social History: No alcohol and No tobacco Exam: Pre-Anes Outpt Exam: alert, oriented x 3, clear to auscultation bilaterally and regular rate & rhythm Airway: Cervical ROM: WNL MP: 4 Dentition: Full Pulmonary: Pulmonary: None reported CV/HEM: CV/HEM: HTN : : Chronic renal Insufficiency Hepatic: Hepatic: None reported Metabolic: Metabolic: DM and Morbid obesity Musc/skel: Musc/skel: None reported Neuropsych: Neuropsych: CVA (2006 - ) Anesthetic Plan: ASA status: 3 Anesthesia: MAC Risk of > 500 ml blood loss (7ml/kg in children): No Meds/Allergies Current Medications: Current Medications Generic Name Dose Route Start Last Admin Trade Name Freq PRN Reason Stop Dose Admin Aspirin 325 mg 08/25/19 09:00 08/27/19 09:22 Aspirin PO 325 mg DAILY [facility] Administration Atorvastatin Calci um 20 mg 08/25/19 09:00 08/27/19 09:22 Lipitor PO 20 mg DAILY [facility] Administration Enoxaparin Sodium 40 mg 08/23/19 18:30 08/26/19 17:55 Lovenox SUBCUT 40 mg Q24H [facility] Administration Gabapentin 800 mg 08/25/19 09:00 08/27/19 09:22 Neurontin PO 800 mg BID [facility] Administration Piperacillin Sod/T azobactam 50 mls @ 12.5 mls /hr 08/21/19 22:30 08/27/19 05:31 Sod 3.375 gm/ So dium Chloride IV 12.5 mls/hr Q8H [facility] Administration Protocol Sodium Chloride 1,000 mls @ 100 m ls/hr 08/27/19 07:50 08/27/19 09:29 Sodium Chloride 0.9% IV 08/28/19 07:49 100 mls/hr .Q10H [facility] Administration Insulin Aspart 0 unit 08/25/19 18:00 08/27/19 09:21 Novolog SUBCUT 12 unit WM&BEDTIME [facility] Administration Protocol Insulin Glargine 20 unit 08/24/19 23:00 08/26/19 22:52 Lantus SUBCUT 20 unit BEDTIME [facility] Administration Paroxetine HCl 20 mg 08/25/19 09:00 08/27/19 09:22 Paxil PO 20 mg BID [facility] Administration Additional Medication Information: Current Medications Acetaminophen (Tylenol) 650 mg PO Q4H PRN PRN Reason: MILD PAIN OR INCREASE TEMP Hydrocodone Bitart/Acetaminophen ([place] 5-325 Mg) 1 tab PO Q4H PRN PRN Reason: MODERATE PAIN Aspirin (Aspirin) 325 mg PO DAILY [facility] Last Admin: 08/26/19 08:44 Dose: 325 mg Documented by: Atorvastatin Calcium (Lipitor) 20 mg PO DAILY [facility] Last Admin: 08/26/19 08:44 Dose: 20 mg Documented by: Dextrose (D50w) 25 ml IVP ONCE PRN; Protocol PRN Reason: hypoglycemia protocol Dextrose (D50w) 50 ml IVP PRN PRN; Protocol PRN Reason: hypoglycemia protocol Enoxaparin Sodium (Lovenox) 40 mg SUBCUT Q24H [facility] Last Admin: 08/25/19 18:16 Dose: 40 mg Documented by: Gabapentin (Neurontin) 800 mg PO BID [facility] Last Admin: 08/26/19 08:44 Dose: 800 mg Documented by: Glucagon (Glucagen) 1 mg IM ONCE PRN; Protocol PRN Reason: Adult Acute Hypoglycemia Prot. Hydralazine HCl (Apresoline) 5 mg IVP Q4H PRN PRN Reason: SBP>170 Piperacillin Sod/Tazobactam (Sod 3.375 gm/ Sodium Chloride) 50 mls @ 12.5 mls/hr IV Q8H [facility]; Protocol Last Admin: 08/26/19 06:14 Dose: 12.5 mls/hr Documented by: Dextrose (D5w) 500 mls @ 100 mls/hr IV ONCE PRN; Protocol PRN Reason: Adult Acute Hypoglycemia Prot Insulin Aspart (Novolog) 0 unit SUBCUT WM&BEDTIME [facility]; Protocol Last Admin: 08/26/19 06:14 Dose: Not Given Documented by: Insulin Glargine (Lantus) 20 unit SUBCUT BEDTIME [facility] Last Admin: 08/25/19 22:03 Dose: 20 unit Documented by: Paroxetine HCl (Paxil) 20 mg PO BID [facility] Last Admin: 08/26/19 08:44 Dose: 20 mg Documented by: PFSH Anesthesia PFS: Medical History CKD stage 2 due to type 2 diabetes mellitus -CKD stage 2, Diabetes mellitus with hyperglycemia, with long-term current use of insulin -A1c-11.2 Diabetic peripheral neuropathy associated with type 2 diabetes mellitus -on gabapentin History of stroke hx of embolic CVA in 2006 -on ASA, statin Hypercholesteremia -on statin Hypertension Morbid obesity -BMI-36 kg/m2 Onychodystrophy Surgical History Amputation of right index finger in 2010 History of amputation of right foot History of knee surgery bilateral History of transmetatarsal amputation of right foot Family History Father CAD (coronary artery disease) Mother Diabetes Other Stroke Social History Smoking and tobacco status: former smoker Alcohol intake: never Lives independently: Yes Marital status: History of recent travel: No Data Anesthesia CBC & Chem 7: 08/26/19 04:27 08/26/19 04:27 Other Labs: Laboratory Results - last 48 hr 08/25/19 08/25/19 08/25/19 17:07 17:08 21:21 WBC RBC Hgb Hct MCV MCH MCHC RDW Plt Count MPV Neut % (Auto) Lymph % (Auto) [place] % (Auto) Eos % (Auto) Baso % (Auto) Neut # (Auto) Lymph # (Auto) [place] # (Auto) Eos # (Auto) Baso # (Auto) Nucleated RBC % (auto) Nucleated RBCs # Sodium Potassium Chloride Carbon Dioxide Anion Gap BUN Creatinine GFR Calculation Glucose POC Glucose 416 348 319 Calculated Osmolality Calcium Magnesium Total Bilirubin AST ALT Alkaline Phosphatase Total Protein Albumin Globulin 08/26/19 08/26/19 08/26/19 04:27 04:27 06:23 WBC 9.9 RBC 4.35 Hgb 13.4 Hct 40.8 L MCV 93.8 MCH 30.8 MCHC 32.8 RDW 12.3 Plt Count 578 H MPV 9.1 Neut % (Auto) 66.8 Lymph % (Auto) 21.3 [place] % (Auto) 6.8 Eos % (Auto) 3.4 Baso % (Auto) 0.7 Neut # (Auto) 6.6 Lymph # (Auto) 2.1 [place] # (Auto) 0.7 Eos # (Auto) 0.3 Baso # (Auto) 0.1 Nucleated RBC % (auto) 0 Nucleated RBCs # 0.0 Sodium 136 Potassium 4.3 Chloride 96 L Carbon Dioxide 28 Anion Gap 16.3 BUN 11 Creatinine 0.9 GFR Calculation 86.4 L Glucose 257 H POC Glucose 215 Calculated Osmolality 287 Calcium 9.6 Magnesium Total Bilirubin 0.3 AST 12 ALT < 5 Alkaline Phosphatase 93 Total Protein 8.1 Albumin 3.3 L Globulin 4.8 H 08/26/19 08/26/19 08/26/19 11:32 16:55 22:41 WBC RBC Hgb Hct MCV MCH MCHC RDW Plt Count MPV Neut % (Auto) Lymph % (Auto) [place] % (Auto) Eos % (Auto) Baso % (Auto) Neut # (Auto) Lymph # (Auto) [place] # (Auto) Eos # (Auto) Baso # (Auto) Nucleated RBC % (auto) Nucleated RBCs # Sodium Potassium Chloride Carbon Dioxide Anion Gap BUN Creatinine GFR Calculation Glucose POC Glucose 367 303 229 Calculated Osmolality Calcium Magnesium Total Bilirubin AST ALT Alkaline Phosphatase Total Protein Albumin Globulin 08/27/19 08/27/19 08/27/19 07:20 07:55 10:48 WBC RBC Hgb Hct MCV MCH MCHC RDW Plt Count MPV Neut % (Auto) Lymph % (Auto) [place] % (Auto) Eos % (Auto) Baso % (Auto) Neut # (Auto) Lymph # (Auto) [place] # (Auto) Eos # (Auto) Baso # (Auto) Nucleated RBC % (auto) Nucleated RBCs # Sodium Potassium Chloride Carbon Dioxide Anion Gap BUN Creatinine GFR Calculation Glucose POC Glucose 262 225 Calculated Osmolality Calcium Magnesium 2.5 H Total Bilirubin AST ALT Alkaline Phosphatase Total Protein Albumin Globulin Micro: Microbiology 08/24/19 15:19 Gram Stain - Final Ankle - Wound Wound Culture - Preliminary 08/21/19 17:00 Blood Culture - Final Blood NO GROWTH AFTER 5 DAYS 08/21/19 16:55 Blood Culture - Final Blood NO GROWTH AFTER 5 DAYS Cardiac Studies: No Data to Display
--- NOTE | 2019-08-27 12:10 | XR_ITS ---
WS: [id number] PORTABLE CHEST HISTORY: PICC PLACEMENT COMPARISON: 08/10/2019 Interval placement of a RIGHT PICC line with tip in the proximal SVC. Advancing 2-3 more centimeters would be more optimal. No complications. Lungs are clear and well expanded. No pleural effusion or pneumothorax. Cardiac size: Normal. Mediastinum/Aorta: Normal mediastinum. No osseous abnormality seen. XR/XR chest 1V portable 04999 IMPRESSION: RIGHT PICC line terminates in the proximal SVC. Recommend additional advancemen t.
[2019-08-27] MEDS: lidocaine 2% INJ 20 mL INJECTION (12:12)
--- NOTE | 2019-08-27 12:42 | PM.OP ---
Operative Report Date of procedure: August 27, 2019 Pre-op Diagnosis: Left Diabetic foot soft tissue infection deep penetrating puncture wound, left lower extremity. Post-op diagnosis: same Procedure Done: Incision and debridement left foot with debridement of nonviable epidermis, dermis, subcutaneous tissue, muscle tendon and fat. Implants: None Specimens removed/disposition: Soft tissue left posterior leg sent to microbiology for Gram stain, culture and sensitivity. Pathology: other Surgeon: Josh Archer D.P.M. Wallpaper Embosser Helper: Tarun Anesthesia: MAC Estimated blood loss: 15 mL Tourniquet time: 17 minutes IV fluids: None Urine output: None Complications: None Findings: Devitalized epidermis, dermis, subcutaneous tissue, fat and tendon. No bony involvement. Primary infection was tracking up the tendon sheath of the posterior tibial tendon there is also fluid collection at Kager's fat pad. Condition: stable Disposition: floor Brief History: Patient has a deep penetrating wound with devitalized tissue secondary to puncture wound, stepped on a dirty nail. He did initially have a debridement performed has been on IV antibiotics. Recommending second debridement and deep tissue culture risks include pain, bleeding, numbness, infection, need for further surgical debridement and/or amputation, need for antibiotic therapy and wound care. Risk for loss of function, transfer pressure and lesions. Patient is agreeable wishes to proceed. Procedure: Under mild sedation the patient was brought to the operating room and remained on the gurney in supine position. Timeout was performed. Anesthesia was administered by the anesthesia service. Local anesthesia was injected by myself in a posterior tibial nerve block and saphenous nerve block left lower extremity. Well-padded pneumatic tourniquet applied high calf left lower extremity. Left lower extremity was scrubbed, prepped and draped utilizing normal aseptic technique. Tourniquet was inflated to 250 mmHg. Attention was directed to the left lower extremity where a full-thickness wound was appreciated the medial plantar heel exposed to fat layer. This was explored did not penetrate to bone I was able to palpate the medial band of the plantar fascia, did not probe to the calcaneus or talus. Wound tracked proximally and had a portal additionally proximal at the medial aspect of the ankle. Wound coursed near the neurovascular bundle however this was not involved. A linear incision was made to connect these two existing wounds, debridement of nonviable epidermis, dermis, subcutaneous tissue and fat was performed. There was tracking more proximally, decision was made to extend the incision proximally, yielded some purulent drainage this was minimal less than 3 cc that was localized at the posterior tibial tendon sheath as well as kager's triangle. There was significantly off-color and devitalized synovial sheath at the posterior tibial tendon this was debrided of all devitalized tissue sharply with pickups and 15 blade as well as rongure. Devitalized adipose tissue also sharply excised and passed from the operative field. Deep tissue cultures were taken at Kager's triangle of adipose tissue that was sofia dusky in color as well as within the synovial sheath of the posterior tibial tendon this was sent to microbiology for culture and sensitivity. Area was irrigated with saline solution no further obvious devitalized tissue appreciated no further purulence expressed. Area was then irrigated with 3 L of saline solution. Post debridement wound measurements including incision and original wound measures approximately 17 cm x 4 cm x 2 cm. Wound was packed with sterile 4 x 4 gauze saline wet-to-dry, ABD pads, Kerlix and Avi wrap. Tourniquet was deflated and a prompt hyperemic response was noted to the distal digits of the left foot. No pulsatile bleeders appreciated. Patient tolerated the procedure well and was transferred to the PACU with vital signs stable and vascular status intact. He will be transferred back to the floor after period of postoperative monitoring to continue empiric IV antibiotics. Will await finalized cultures for antibiotic guidance, previous cultures show ceftriaxone would be a appealing option. Will proceed with twice daily dressing changes saline wet-to-dry and monitor clinical response to IV antibiotics and current debridement. Showed soft tissue improve will plan for primary delayed closure of a portion of the incision and wound as well as application of wound vacuum tentatively scheduled for 7 AM August 29, 2019. 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
[2019-08-27] MEDS: sodium chloride 0.9% 1,000 ML 30 ML IV (14:41)
[2019-08-27 16:25] LABS: Glucose Point of Care 232 mg/dL (70-110)
[2019-08-27] MEDS: enoxaparin 40 mg/0.4 mL Syringe SUBCUT (18:15)
[2019-08-27 21:17] LABS: Glucose Point of Care 277 mg/dL (70-110)
[2019-08-27] MEDS: insulin glargine 100 units/1 mL 20 UNIT SUBCUT (21:39)
[2019-08-28 03:09] LABS: Alanine Aminotransferase 9 U/L (0-41); Albumin Level 3.2 g/dL (3.5-5.2); Alkaline Phosphatase 92 IU/L (40-130); Anion Gap 15.1 (5-19); Aspartate Amino Transferase 13 U/L (0-40); Blood Urea Nitrogen 17 mg/dL (6-20); Calcium 9.6 mg/dL (8.5-10.5); Carbon Dioxide 28 mmol/L (22-29); Chloride 97 mmol/L (98-107); Globulin 4.7 g/dL (1.3-4.6); Glomerular Filtration Rate 86.4 mL/min (90-130); Glucose 151 mg/dL (65-115); Osmolality Calculated 281 mOsm/kg (285-295); Potassium 4.1 mmol/L (3.5-5.1); Sodium 136 mmol/L (136-145); Total Bilirubin 0.3 mg/dL (0.15-1.2); Total Protein 7.9 g/dL (6.6-8.7)
[2019-08-28 03:12] LABS: Phosphorus 4.4 mg/dL (2.5-4.5)
[2019-08-28 03:21] LABS: Basophils # 0.1 10^3/uL (0.0-0.1); Basophils % 0.6 %; Eosinophils # 0.3 10^3/uL (0.0-0.8); Eosinophils % 2.8 %; Hematocrit 40.8 % (42.0-52.0); Hemoglobin 13.2 g/dL (11.7-16.6); Lymphocytes # 2.7 10^3/uL (0.8-4.8); Lymphocytes % 24.6 %; Mean Corpuscular HGB Conc 32.4 g/dL (30.0-36.0); Mean Corpuscular Hemoglobin 30.1 pg (28.0-34.0); Mean Corpuscular Volume 93.2 fL (80-94); Mean Platelet Volume 9.6 fL (7.4-10.4); Monocytes # 0.7 10^3/uL (0.2-0.9); Monocytes % 6.7 %; Neutrophils % 64.6 %; Nucleated Red Blood Cells % 0 %; Platelet Count 560 10^3/cmm (130-400); Red Blood Count 4.38 10^6/uL (4.1-5.3); Red Cell Distribution Width 12.2 % (12.1-15.1); White Blood Count 10.9 10^3/uL (4.0-10.0)
[2019-08-28 04:00] VITALS: BP 115/76; PULSE 75; RESP 18; TEMP 36.6; O2SAT 98
--- NOTE | 2019-08-28 05:06 | PC.NURSE ---
DRESSING TO LEFT FOOT HAS MINIMAL DRAINAGE NOTED. THE KERLIX UNDERNEATH THE RON WRAP HAS A MODERATE AMOUNT MORE, BUT IS NOT WET OR SATURATING THE RON WRAP ANY FURTHER THAN NOTED AT THE BEGINNING OF THE SHIFT.
[2019-08-28] MEDS: piperacillin-tazobactam 3.375 GM in sodium chloride 0.9% (plus) 50 ML IV ×3 (05:47→22:20)
--- NOTE | 2019-08-28 06:01 | PM.PN ---
Subjective Subjective: Interval history: 1 day status post I&D left foot doing well. Some strikethrough bleeding at postoperative dressings appreciated, no active bleeding. Patient denies any pain. Denies any acute events overnight. Patient denies any subjective nausea, vomiting, fever, chills, shortness of breath or chest pain. Vitals/I&O/Wt Last Vital Signs Temp 97.8 F 08/28/19 04:00 Pulse 75 08/28/19 04:00 Resp 18 08/28/19 04:00 BP 115/76 08/28/19 04:00 Pulse Ox 98 08/28/19 04:00 08/27/19 08/27/19 08/28/19 14:59 22:59 06:59 Intake Total 50 / 50 410 / 460 770 / 1230 Output Total 1160 / 1160 780 / 1940 Balance -1110 / -1110 -370 / -1480 770 / -710 Physical Exam Narrative: EXAM NARRATIVE: GENERAL: Patient is alert and oriented ?3 and in no acute distress. The following is a focused bilateral lower extremity exam. VASCULAR: Dorsalis pedis and posterior tibial arteries palpable +2. Capillary refill time less than 3 seconds to the distal hallux left foot and less than 3 seconds to the right TMA stump. Calf is supple and nontender proximally and distally. Diminished hair growth at bilateral legs and feet. NEUROLOGICAL: Protective sensation intact 0/10 sites, tested with [place] monofilament to bilateral feet. DERMATOLOGICAL: Surgical wound and original wound measurements at this point measuring 17 cm x 4 cm x 2 cm. No active bleeding on dressing change, no purulent drainage expressed. No malodor. Very mild localized erythema at the original wound without proximal lymphangitic streaking. MUSCULOSKELETAL: Pain to palpation about the tarsal tunnel left foot. Status post right transmetatarsal amputation. There is minor tenderness with range of motion in all 3 cardinal planes to the left foot and ankle. Data : 08/28/19 02:29 08/28/19 02:29 Micro: Microbiology 08/24/19 15:19 Gram Stain - Final Ankle - Wound Wound Culture - Preliminary Gram Negative Rods 08/27/19 12:46 Gram Stain - Final Foot - #1 A&P Assessment and plan (1) Infectious synovitis: Status: Acute (2) Abscess of left foot: Status: Acute (3) Diabetes mellitus with hyperglycemia, with long-term current use of insulin: Status: Acute Qualifiers: Diabetes mellitus type: type 2 Qualified Code(s): E11.65 - Type 2 diabetes mellitus with hyperglycemia; Z79.4 - care home (current) use of insulin (4) CKD stage 2 due to type 2 diabetes mellitus: Status: Acute 1 day status post I&D left lower extremity. Patient doing well overnight. Dressing change no active bleeding, no reji purulence. Dressings changed saline wet-to-dry, will have this performed every shift change per nursing staff. Patient continues Zosyn 3.375 mg every 8. Surgical cultures taken yesterday pending, Gram stain significant for gram-positive rods as well as cocci and pairs and clusters. -Patient to remain nonweightbearing to the left lower extremity, elevate while at rest -Continuing Zosyn for now -Recommend PICC line placement and minimum of 3 weeks of ceftriaxone postoperatively, surgical cultures may yield more information necessitating change in antibiotics on discharge. -Patient is scheduled for return debridement and primary delayed closure 08/29/2019 at 7 AM, my plan is to close the majority of the wound if soft tissue is improved, will apply wound VAC to original wound, social work applying for wound VAC on discharge for outpatient follow-up at wound care. Potential discharge home on or Monday. Attestations Medical Necessity Statement*: Diabetic foot infection with sepsis, puncture wound to left lower extremity. Coding Level of Care Code Acute Activities Aide for Curtis Elliott Diagnoses Infectious synovitis M65.10 Abscess of left foot L02.612 Diabetes mellitus with hyperglycemia, with long-term current use of insulin E11.65; Z79.4 Diabetes mellitus type: type 2 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
[2019-08-28 06:39] LABS: Glucose Point of Care 168 mg/dL (70-110)
[2019-08-28 07:07] VITALS: BP 108/72; PULSE 75; RESP 18; TEMP 36.7; O2SAT 96
[2019-08-28] MEDS: aspirin 325 mg Tablet PO (10:36)
[2019-08-28] MEDS: gabapentin 400 mg Capsule 800 MG PO ×2 (10:37→18:14)
[2019-08-28] MEDS: PARoxetine 20 mg Tablet PO ×2 (10:37→18:14)
[2019-08-28] MEDS: atorvastatin 40 mg Tablet 20 MG PO (10:37)
[2019-08-28 11:00] VITALS: BP 116/68; PULSE 86; RESP 18; TEMP 36.7; O2SAT 97
[2019-08-28 11:43] LABS: Glucose Point of Care 257 mg/dL (70-110)
--- NOTE | 2019-08-28 11:56 | PC.SOCIAL ---
IMM Updated Updated pt Pg 2 IMM. No questions voiced. Provided a copy to pt & left on pt's bedside table. Signed, dated, & timed copy in chart.
[2019-08-28 15:12] VITALS: BP 106/70; PULSE 81; RESP 18; TEMP 36.6; O2SAT 96
[2019-08-28 17:21] LABS: Glucose Point of Care 301 mg/dL (70-110)
[2019-08-28] MEDS: enoxaparin 40 mg/0.4 mL Syringe SUBCUT (18:14)
--- NOTE | 2019-08-28 19:05 | PM.PN ---
Subjective Subjective: Interval history: Overall he is doing well. No chest pain. No fevers or chills. Medications: Reviewed: Yes Medication Review Details: Current Medications Acetaminophen (Tylenol) 650 mg PO Q4H PRN PRN Reason: MILD PAIN OR INCREASE TEMP Hydrocodone Bitart/Acetaminophen ([place] 5-325 Mg) 1 tab PO Q4H PRN PRN Reason: MODERATE PAIN Aspirin (Aspirin) 325 mg PO DAILY [facility] Last Admin: 08/26/19 08:44 Dose: 325 mg Documented by: Atorvastatin Calcium (Lipitor) 20 mg PO DAILY [facility] Last Admin: 08/26/19 08:44 Dose: 20 mg Documented by: Dextrose (D50w) 25 ml IVP ONCE PRN; Protocol PRN Reason: hypoglycemia protocol Dextrose (D50w) 50 ml IVP PRN PRN; Protocol PRN Reason: hypoglycemia protocol Enoxaparin Sodium (Lovenox) 40 mg SUBCUT Q24H [facility] Last Admin: 08/25/19 18:16 Dose: 40 mg Documented by: Gabapentin (Neurontin) 800 mg PO BID [facility] Last Admin: 08/26/19 08:44 Dose: 800 mg Documented by: Glucagon (Glucagen) 1 mg IM ONCE PRN; Protocol PRN Reason: Adult Acute Hypoglycemia Prot. Hydralazine HCl (Apresoline) 5 mg IVP Q4H PRN PRN Reason: SBP>170 Piperacillin Sod/Tazobactam (Sod 3.375 gm/ Sodium Chloride) 50 mls @ 12.5 mls/hr IV Q8H [facility]; Protocol Last Admin: 08/26/19 06:14 Dose: 12.5 mls/hr Documented by: Dextrose (D5w) 500 mls @ 100 mls/hr IV ONCE PRN; Protocol PRN Reason: Adult Acute Hypoglycemia Prot Insulin Aspart (Novolog) 0 unit SUBCUT WM&BEDTIME [facility]; Protocol Last Admin: 08/26/19 06:14 Dose: Not Given Documented by: Insulin Glargine (Lantus) 20 unit SUBCUT BEDTIME [facility] Last Admin: 08/25/19 22:03 Dose: 20 unit Documented by: Paroxetine HCl (Paxil) 20 mg PO BID [facility] Last Admin: 08/26/19 08:44 Dose: 20 mg Documented by: Vitals/I&O/Wt Last Vital Signs Temp 97.8 F 08/28/19 15:12 Pulse 81 08/28/19 15:12 Resp 18 08/28/19 15:12 BP 106/70 08/28/19 15:12 Pulse Ox 96 08/28/19 15:12 08/28/19 08/28/19 08/28/19 06:59 14:59 22:59 Intake Total 770 / 1230 530 / 770 240 / 770 Output Total 400 / 775 375 / 775 Balance 770 / -710 130 / -5 -135 / -5 Physical Exam Narrative: EXAM NARRATIVE: General: No acute distress, Alert. Well nourished. Heart: Regular rate and rhythm. No murmurs, rubs or gallops. Normal capillary refill. Lungs: Clear to auscultation. No wheezes, rhonchi or rales. Abdomen: Positive bowel sounds. Non-tender, non-distended. No hepatosplenomegaly. No gaurding. Extremities: No clubbing, cyanosis, or edema. Negative Richelle's Data : 08/28/19 02:29 08/28/19 02:29 Micro: Microbiology 08/24/19 15:19 Gram Stain - Final Ankle - Wound Wound Culture - Final Enterobacter cloacae 08/27/19 12:46 Gram Stain - Final Foot - #1 Tissue Culture - Preliminary A&P Assessment and plan (1) Infectious synovitis: Appreciate Dr. Archer's consultation. We will continue his IV antibiotics. Proceed with surgery today. We will plan for long-term IV antibiotics as an outpatient. Plan for PICC line placement today. Disposition per Dr. Archer's recommendations. Status: Acute (2) Abscess of left foot: . Status: Acute (3) Diabetes mellitus with hyperglycemia, with long-term current use of insulin: Overall stable. Status: Acute Qualifiers: Diabetes mellitus type: type 2 Qualified Code(s): E11.65 - Type 2 diabetes mellitus with hyperglycemia; Z79.4 - skilled nursing (current) use of insulin (4) CKD stage 2 due to type 2 diabetes mellitus: Stable Status: Acute Attestations Medical Necessity Statement*: Patient has left ankle cellulitis and synovitis requiring surgical debridement and further IV treatments in the inpatient setting Coding Level of Care Code Acute Abstract Checker for [facility] Diagnoses Infectious synovitis M65.10 Abscess of left foot L02.612 Diabetes mellitus with hyperglycemia, with long-term current use of insulin E11.65; Z79.4 Diabetes mellitus type: type 2 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
[2019-08-28 20:00] VITALS: BP 121/77; PULSE 77; RESP 16; TEMP 36.5; O2SAT 95
[2019-08-28 21:43] LABS: Glucose Point of Care 335 mg/dL (70-110)
[2019-08-28] MEDS: sodium chloride 0.9% 1,000 ML 30 ML IV (22:16)
[2019-08-28] MEDS: insulin glargine 100 units/1 mL 20 UNIT SUBCUT (22:17)
[2019-08-29] VITALS (9 sets, daily range): BP systolic 106–145; BP diastolic 66–91; PULSE 63–81; RESP 16–20; TEMP 36.2–36.7; O2SAT 93–100
[2019-08-29] MEDS: piperacillin-tazobactam 3.375 GM in sodium chloride 0.9% (plus) 50 ML IV ×3 (05:41→22:24)
--- NOTE | 2019-08-29 05:51 | P.PN_ITS ---
Subjective Subjective: Interval history: Patient seen bedside this morning. He is n.p.o. in preparation for surgery this a.m. Planned procedure of primary delayed closure and application of wound VAC to the left lower extremity. Denies any acute events overnight. Patient denies any subjective nausea, vomiting, fever, chills, shortness of breath or chest pain. Vitals/I&O/Wt Last Vital Signs Temp 97.6 F 08/29/19 03:50 Pulse 68 08/29/19 03:50 Resp 16 08/29/19 03:50 BP 131/77 08/29/19 03:50 Pulse Ox 95 08/29/19 03:50 08/28/19 08/28/19 08/29/19 14:59 22:59 06:59 Intake Total 530 / 530 1237.5 / 1767.5 50 / 1817.5 Output Total 400 / 400 700 / 1100 525 / 1625 Balance 130 / 130 537.5 / 667.5 -475 / 192.5 Physical Exam Narrative: EXAM NARRATIVE: GENERAL: Patient is alert and oriented ?3 and in no acute distress. The following is a focused bilateral lower extremity exam. VASCULAR: Dorsalis pedis and posterior tibial arteries palpable +2. Capillary refill time less than 3 seconds to the distal hallux left foot and less than 3 seconds to the right TMA stump. Calf is supple and nontender proximally and distally. Diminished hair growth at bilateral legs and feet. NEUROLOGICAL: Protective sensation intact 0/10 sites, tested with [place] monofilament to bilateral feet. DERMATOLOGICAL: Surgical wound and original wound measurements at this point measuring 17 cm x 4 cm x 2 cm. No active bleeding on dressing change, no purulent drainage expressed. No malodor. Very mild localized erythema at the original wound without proximal lymphangitic streaking. MUSCULOSKELETAL: Pain to palpation about the tarsal tunnel left foot. Status post right transmetatarsal amputation. There is minor tenderness with range of motion in all 3 cardinal planes to the left foot and ankle. 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 He is n.p.o. in preparation for surgery today. Plan procedure of primary delayed closure and application of wound VAC to the left lower extremity. -Patient to remain nonweightbearing to the left lower extremity, elevate while at rest -Continuing Zosyn for now -Recommend PICC line placement and minimum of 3 weeks of ceftriaxone postoperatively, surgical cultures taken on 08/27/2019 pending. May adjust antibiotics pending results. Attestations Medical Necessity Statement*: Diabetic foot infection. Coding Level of Care Code Acute Dehydrogenation Operator Head for [facility] Diagnoses Infectious synovitis M65.10 Abscess of left foot L02.612 Diabetes mellitus with hyperglycemia, with long-term current use of insulin E 11.65; Z79.4 Diabetes mellitus type: type 2 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
[2019-08-29 06:32] LABS: Glucose Point of Care 199 mg/dL (70-110)
--- NOTE | 2019-08-29 06:33 | ANES.PREANE2 ---
Pre-Anesthetic Assessment Pre-Anesthetic Assessment: Height/Weight: Height 1.83 m Weight 122.016 kg Temp Pulse Resp BP Pulse Ox 97.1 F L 74 18 106/66 93 08/29/19 06:29 08/29/19 06:29 08/29/19 06:29 08/29/19 06:29 08/29/19 06:29 Preop Diagnosis: Left Diabetic foot soft tissue infection deep penetrating puncture wound, left lower extremity. Proposed Procedure: Operation Date: 08/27/19 12:00 Proposed Procedures p Incision And Drainage left foot(Left) - Josh Archer DPM Operation Date: 08/29/19 07:00 Proposed Procedures p Delayed Wound Closure poss wound vac(Left) - Josh Archer DPM Last intake: Intake Last Liquid Date 08/28/19 Last Liquid Time 22:00 Last Solid Date 08/28/19 Last Solid Time 17:00 Social: Social History: Tobacco (quit) and No alcohol Exam: Pre-Anes Outpt Exam: alert, oriented x 3, clear to auscultation bilaterally and regular rate & rhythm Airway: Submandibular: WNL Cervical ROM: WNL MP: 3 Dentition: Full (dentation) History/ROS: No significant history except as noted Pulmonary: Pulmonary: None reported CV/HEM: CV/HEM: HTN : : Chronic renal Insufficiency Hepatic: Hepatic: None reported GI: GI: None reported Metabolic: Metabolic: DM, Hyperlipidemia and Morbid obesity Musc/skel: Musc/skel: None reported Neuropsych: Neuropsych: CVA (2007) and Neuropathy (feet) Anesthetic Plan: ASA status: 3 Anesthesia: Anesthesia Evaluation and MAC Risk of > 500 ml blood loss (7ml/kg in children): No Meds/Allergies Current Medications: Current Medications Generic Name Dose Route Start Last Admin Trade Name Freq PRN Reason Stop Dose Admin Aspirin 325 mg 08/25/19 09:00 08/28/19 10:36 Aspirin PO 325 mg DAILY [facility] Administration Atorvastatin Calci um 20 mg 08/25/19 09:00 08/28/19 10:37 Lipitor PO 20 mg DAILY [facility] Administration Enoxaparin Sodium 40 mg 08/23/19 18:30 08/28/19 18:14 Lovenox SUBCUT 40 mg Q24H [facility] Administration Gabapentin 800 mg 08/25/19 09:00 08/28/19 18:14 Neurontin PO 800 mg BID [facility] Administration Piperacillin Sod/T azobactam 50 mls @ 12.5 mls /hr 08/21/19 22:30 08/29/19 05:41 Sod 3.375 gm/ So dium Chloride IV 12.5 mls/hr Q8H [facility] Administration Protocol Sodium Chloride 1,000 mls @ 30 ml s/hr 08/27/19 12:00 08/28/19 22:16 Sodium Chloride 0.9% IV 30 mls/hr .Q24H [facility] Administration Insulin Aspart 0 unit 08/25/19 18:00 08/28/19 22:16 Novolog SUBCUT 14 unit WM&BEDTIME [facility] Administration Protocol Insulin Glargine 20 unit 08/24/19 23:00 08/28/19 22:17 Lantus SUBCUT 20 unit BEDTIME [facility] Administration Paroxetine HCl 20 mg 08/25/19 09:00 08/28/19 18:14 Paxil PO 20 mg BID [facility] Administration Additional Medication Information: Current Medications Acetaminophen (Tylenol) 650 mg PO Q4H PRN PRN Reason: MILD PAIN OR INCREASE TEMP Hydrocodone Bitart/Acetaminophen ([place] 5-325 Mg) 1 tab PO Q4H PRN PRN Reason: MODERATE PAIN Aspirin (Aspirin) 325 mg PO DAILY [facility] Last Admin: 08/26/19 08:44 Dose: 325 mg Documented by: Atorvastatin Calcium (Lipitor) 20 mg PO DAILY [facility] Last Admin: 08/26/19 08:44 Dose: 20 mg Documented by: Dextrose (D50w) 25 ml IVP ONCE PRN; Protocol PRN Reason: hypoglycemia protocol Dextrose (D50w) 50 ml IVP PRN PRN; Protocol PRN Reason: hypoglycemia protocol Enoxaparin Sodium (Lovenox) 40 mg SUBCUT Q24H [facility] Last Admin: 08/25/19 18:16 Dose: 40 mg Documented by: Gabapentin (Neurontin) 800 mg PO BID [facility] Last Admin: 08/26/19 08:44 Dose: 800 mg Documented by: Glucagon (Glucagen) 1 mg IM ONCE PRN; Protocol PRN Reason: Adult Acute Hypoglycemia Prot. Hydralazine HCl (Apresoline) 5 mg IVP Q4H PRN PRN Reason: SBP>170 Piperacillin Sod/Tazobactam (Sod 3.375 gm/ Sodium Chloride) 50 mls @ 12.5 mls/hr IV Q8H [facility]; Protocol Last Admin: 08/26/19 06:14 Dose: 12.5 mls/hr Documented by: Dextrose (D5w) 500 mls @ 100 mls/hr IV ONCE PRN; Protocol PRN Reason: Adult Acute Hypoglycemia Prot Insulin Aspart (Novolog) 0 unit SUBCUT WM&BEDTIME [facility]; Protocol Last Admin: 08/26/19 06:14 Dose: Not Given Documented by: Insulin Glargine (Lantus) 20 unit SUBCUT BEDTIME [facility] Last Admin: 08/25/19 22:03 Dose: 20 unit Documented by: Paroxetine HCl (Paxil) 20 mg PO BID [facility] Last Admin: 08/26/19 08:44 Dose: 20 mg Documented by: PFSH Anesthesia PFS: Medical History CKD stage 2 due to type 2 diabetes mellitus -CKD stage 2, Diabetes mellitus with hyperglycemia, with long-term current use of insulin -A1c-11.2 Diabetic peripheral neuropathy associated with type 2 diabetes mellitus -on gabapentin History of stroke hx of embolic CVA in 2006 -on ASA, statin Hypercholesteremia -on statin Hypertension Morbid obesity -BMI-36 kg/m2 Onychodystrophy Surgical History Amputation of right index finger in 2010 History of amputation of right foot History of knee surgery bilateral History of transmetatarsal amputation of right foot Family History Father CAD (coronary artery disease) Mother Diabetes Other Stroke Social History Smoking and tobacco status: former smoker Alcohol intake: never Lives independently: Yes Marital status: History of recent travel: No Data Anesthesia CBC & Chem 7: 08/28/19 02:29 08/28/19 02:29 Other Labs: Laboratory Results - last 48 hr 08/27/19 08/27/19 08/27/19 07:20 07:55 10:48 WBC RBC Hgb Hct MCV MCH MCHC RDW Plt Count MPV Neut % (Auto) Lymph % (Auto) Lares % (Auto) Eos % (Auto) Baso % (Auto) Neut # (Auto) Lymph # (Auto) Lares # (Auto) Eos # (Auto) Baso # (Auto) Nucleated RBC % (auto) Nucleated RBCs # Sodium Potassium Chloride Carbon Dioxide Anion Gap BUN Creatinine GFR Calculation Glucose POC Glucose 262 225 Calculated Osmolality Calcium Phosphorus Magnesium 2.5 H Total Bilirubin AST ALT Alkaline Phosphatase Total Protein Albumin Globulin 08/27/19 08/27/19 08/28/19 16:21 21:10 02:29 WBC RBC Hgb Hct MCV MCH MCHC RDW Plt Count MPV Neut % (Auto) Lymph % (Auto) Lares % (Auto) Eos % (Auto) Baso % (Auto) Neut # (Auto) Lymph # (Auto) Lares # (Auto) Eos # (Auto) Baso # (Auto) Nucleated RBC % (auto) Nucleated RBCs # Sodium Potassium Chloride Carbon Dioxide Anion Gap BUN Creatinine GFR Calculation Glucose POC Glucose 232 277 Calculated Osmolality Calcium Phosphorus 4.4 Magnesium Total Bilirubin AST ALT Alkaline Phosphatase Total Protein Albumin Globulin 08/28/19 08/28/19 08/28/19 02:29 02:29 06:35 WBC 10.9 H RBC 4.38 Hgb 13.2 Hct 40.8 L MCV 93.2 MCH 30.1 MCHC 32.4 RDW 12.2 Plt Count 560 H MPV 9.6 Neut % (Auto) 64.6 Lymph % (Auto) 24.6 Lares % (Auto) 6.7 Eos % (Auto) 2.8 Baso % (Auto) 0.6 Neut # (Auto) 7.0 Lymph # (Auto) 2.7 Lares # (Auto) 0.7 Eos # (Auto) 0.3 Baso # (Auto) 0.1 Nucleated RBC % (auto) 0 Nucleated RBCs # 0.0 Sodium 136 Potassium 4.1 Chloride 97 L Carbon Dioxide 28 Anion Gap 15.1 BUN 17 Creatinine 0.9 GFR Calculation 86.4 L Glucose 151 H POC Glucose 168 Calculated Osmolality 281 L Calcium 9.6 Phosphorus Magnesium Total Bilirubin 0.3 AST 13 ALT 9 Alkaline Phosphatase 92 Total Protein 7.9 Albumin 3.2 L Globulin 4.7 H 08/28/19 08/28/19 08/28/19 10:58 17:06 21:10 WBC RBC Hgb Hct MCV MCH MCHC RDW Plt Count MPV Neut % (Auto) Lymph % (Auto) Lares % (Auto) Eos % (Auto) Baso % (Auto) Neut # (Auto) Lymph # (Auto) Lares # (Auto) Eos # (Auto) Baso # (Auto) Nucleated RBC % (auto) Nucleated RBCs # Sodium Potassium Chloride Carbon Dioxide Anion Gap BUN Creatinine GFR Calculation Glucose POC Glucose 257 301 335 Calculated Osmolality Calcium Phosphorus Magnesium Total Bilirubin AST ALT Alkaline Phosphatase Total Protein Albumin Globulin 08/29/19 06:29 WBC RBC Hgb Hct MCV MCH MCHC RDW Plt Count MPV Neut % (Auto) Lymph % (Auto) Lares % (Auto) Eos % (Auto) Baso % (Auto) Neut # (Auto) Lymph # (Auto) Lares # (Auto) Eos # (Auto) Baso # (Auto) Nucleated RBC % (auto) Nucleated RBCs # Sodium Potassium Chloride Carbon Dioxide Anion Gap BUN Creatinine GFR Calculation Glucose POC Glucose 199 Calculated Osmolality Calcium Phosphorus Magnesium Total Bilirubin AST ALT Alkaline Phosphatase Total Protein Albumin Globulin Micro: Microbiology 08/24/19 15:19 Gram Stain - Final Ankle - Wound Wound Culture - Final Enterobacter cloacae 08/27/19 12:46 Gram Stain - Final Foot - #1 Tissue Culture - Preliminary Cardiac Studies: No Data to Display
[2019-08-29] MEDS: sodium chloride 0.9% 1,000 ML 30 ML IV (06:53)
[2019-08-29] MEDS: lidocaine 1% INJ 20 mL 19 ML IV (07:16)
--- NOTE | 2019-08-29 07:41 | PM.OP ---
Operative Report Date of procedure: August 29, 2019 Pre-op Diagnosis: Left Diabetic foot soft tissue infection deep penetrating puncture wound, left lower extremity. Post-op diagnosis: same Procedure Done: Primary delayed closure and application of negative pressure wound vacuum left lower extremity. Implants: 3-0 nylon. Granulafoam wound VAC dressing Specimens removed/disposition: None Pathology: none sent Surgeon: Josh Archer D.P.M. Senior Living Sales Counselor: Azucena Anesthesia: MAC Estimated blood loss: 5 mL Tourniquet time: No tourniquet utilized IV fluids: None Urine output: None Complications: None Findings: Improved wound appearance. Condition: stable Disposition: floor Brief History: Mr. Clemens stepped on a nail went several hours before realizing it was a dirty christa nail. Was admitted for necrotizing fasciitis. He is diabetic has history of right transmetatarsal amputation. Initial debridement was performed. No obvious osteomyelitis on imaging that included MRI, CT scan and x-ray. I performed a incision and debridement with deep tissue culture on 08/27/2019. Recommending primary delayed closure with application of wound VAC patient is agreeable wishes to proceed. Risks include pain, bleeding, numbness, infection, failure to eradicate infection. Need for IV antibiotics and further surgical debridement and/or amputation. Patient is agreeable wishes to proceed. Procedure: Under mild sedation the patient was brought to the operating room and remained on the gurney in supine position. A timeout was performed. Anesthesia was then administered by the anesthesia service. Local anesthesia was injected by myself consisting of 17 cc of 1% lidocaine plain and a left posterior tibial nerve block and saphenous nerve block fashion as well as diffusely at the operative field. Well-padded pneumatic tourniquet was applied to the high calf left lower extremity, tourniquet was not inflated throughout the duration of the procedure. The left lower extremity was scrubbed, prepped and draped utilizing normal aseptic technique. Attention was directed to the left foot and ankle wound. Sharp debridement was performed of all devitalized tissue including epidermis, dermis, subcutaneous tissue, fat, deep fascia and tendon sheath. No further obvious devitalized tissue appreciated. Wound was irrigated with copious amounts of sterile saline solution. Wound was further explored did not appreciate any tracking, tunneling or undermining, no purulent drainage expressed. After further irrigation the medial ankle wound was closed utilizing 3-0 nylon skin margins were reapproximated without tension. Remaining wound at the plantar heel medially left open this will be dressed with a wound VAC. Post debridement and closure measurements ended up with a wound at the plantar medial heel measuring 4.5 cm x 1.6 cm x 1.2 cm. Granular foam applied directly into the wound it did not extend to bone. Bridging was performed to the dorsal medial foot with further granular foam. Wound VAC dressing was applied with excellent seal set at -125 mmHg continuous. Patient tolerated the procedure well and was sent to the PACU with vital signs stable and vascular status intact. Following a period of postoperative monitoring he will be transferred back to the floor will continue IV antibiotics and remain nonweightbearing to the left lower extremity.
--- NOTE | 2019-08-29 07:56 | SUR.OPER ---
wound vac activation confirmation # [id number]
--- NOTE | 2019-08-29 07:58 | SUR.PHASEI ---
pt awake alert vss tracer check done pt to go to [facility] for tx per ss on floor.
[2019-08-29 07:59] LABS: Glucose Point of Care 252 mg/dL (70-110)
[2019-08-29] MEDS: gabapentin 400 mg Capsule 800 MG PO ×2 (08:51→16:37)
[2019-08-29] MEDS: atorvastatin 40 mg Tablet 20 MG PO (08:51)
[2019-08-29] MEDS: PARoxetine 20 mg Tablet PO ×2 (08:51→16:38)
[2019-08-29] MEDS: aspirin 325 mg Tablet PO (08:51)
[2019-08-29 11:06] LABS: Glucose Point of Care 268 mg/dL (70-110)
--- NOTE | 2019-08-29 13:51 | PM.PN ---
Subjective Subjective: Interval history: Doing well surgery today. No fevers or chills. No chest pain. Blood sugars been doing well. No chest pain or shortness of breath. Medications: Reviewed: Yes Medication Review Details: Current Medications Acetaminophen (Tylenol) 650 mg PO Q4H PRN PRN Reason: MILD PAIN OR INCREASE TEMP Hydrocodone Bitart/Acetaminophen ([place] 5-325 Mg) 1 tab PO Q4H PRN PRN Reason: MODERATE PAIN Aspirin (Aspirin) 325 mg PO DAILY [facility] Last Admin: 08/26/19 08:44 Dose: 325 mg Documented by: Atorvastatin Calcium (Lipitor) 20 mg PO DAILY [facility] Last Admin: 08/26/19 08:44 Dose: 20 mg Documented by: Dextrose (D50w) 25 ml IVP ONCE PRN; Protocol PRN Reason: hypoglycemia protocol Dextrose (D50w) 50 ml IVP PRN PRN; Protocol PRN Reason: hypoglycemia protocol Enoxaparin Sodium (Lovenox) 40 mg SUBCUT Q24H [facility] Last Admin: 08/25/19 18:16 Dose: 40 mg Documented by: Gabapentin (Neurontin) 800 mg PO BID [facility] Last Admin: 08/26/19 08:44 Dose: 800 mg Documented by: Glucagon (Glucagen) 1 mg IM ONCE PRN; Protocol PRN Reason: Adult Acute Hypoglycemia Prot. Hydralazine HCl (Apresoline) 5 mg IVP Q4H PRN PRN Reason: SBP>170 Piperacillin Sod/Tazobactam (Sod 3.375 gm/ Sodium Chloride) 50 mls @ 12.5 mls/hr IV Q8H [facility]; Protocol Last Admin: 08/26/19 06:14 Dose: 12.5 mls/hr Documented by: Dextrose (D5w) 500 mls @ 100 mls/hr IV ONCE PRN; Protocol PRN Reason: Adult Acute Hypoglycemia Prot Insulin Aspart (Novolog) 0 unit SUBCUT WM&BEDTIME [facility]; Protocol Last Admin: 08/26/19 06:14 Dose: Not Given Documented by: Insulin Glargine (Lantus) 20 unit SUBCUT BEDTIME [facility] Last Admin: 08/25/19 22:03 Dose: 20 unit Documented by: Paroxetine HCl (Paxil) 20 mg PO BID [facility] Last Admin: 08/26/19 08:44 Dose: 20 mg Documented by: Vitals/I&O/Wt Last Vital Signs Temp 97.6 F 08/29/19 11:45 Pulse 63 08/29/19 11:45 Resp 17 08/29/19 11:45 BP 145/91 08/29/19 11:45 Pulse Ox 98 08/29/19 11:45 08/28/19 08/29/19 08/29/19 22:59 06:59 14:59 Intake Total 1237.5 / 2016.5 250 / 2017.5 50 / 50 Output Total 700 / 1850 750 / 1850 0 / 0 Balance 537.5 / 167.5 -500 / 167.5 50 / 50 Physical Exam Narrative: EXAM NARRATIVE: General: No acute distress, Alert. Well nourished. Heart: Regular rate and rhythm. No murmurs, rubs or gallops. Normal capillary refill. Lungs: Clear to auscultation. No wheezes, rhonchi or rales. Abdomen: Positive bowel sounds. Non-tender, non-distended. No hepatosplenomegaly. No gaurding. Extremities: No clubbing, cyanosis, or edema. Negative Richelle's Data : 08/28/19 02:29 08/28/19 02:29 Micro: Microbiology 08/27/19 12:46 Gram Stain - Final Foot - #1 Tissue Culture - Preliminary Coagulase negativ staphylococc 08/24/19 15:19 Gram Stain - Final Ankle - Wound Wound Culture - Final Enterobacter cloacae A&P Assessment and plan (1) Infectious synovitis: Appreciate Dr. Archer's consultation. We will continue his IV antibiotics. Plan for discharge tomorrow. Status: Acute (2) Abscess of left foot: . Status: Acute (3) Diabetes mellitus with hyperglycemia, with long-term current use of insulin: Overall stable. Status: Acute Qualifiers: Diabetes mellitus type: type 2 Qualified Code(s): E11.65 - Type 2 diabetes mellitus with hyperglycemia; Z79.4 - nursing home (current) use of insulin (4) CKD stage 2 due to type 2 diabetes mellitus: Stable Status: Acute Attestations Medical Necessity Statement*: 58-year-old gentleman with abscess and cellulitis in his foot requiring surgical debridement. Status post surgery today. Continue current postoperative care with discharge most likely tomorrow. 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
[2019-08-29] MEDS: HYDROcodone-acetaminophen 5-325 mg Tablet 1 TAB PO (16:37)
[2019-08-29] MEDS: enoxaparin 40 mg/0.4 mL Syringe SUBCUT (16:38)
[2019-08-29 16:55] LABS: Glucose Point of Care 235 mg/dL (70-110)
[2019-08-29 21:46] LABS: Glucose Point of Care 256 mg/dL (70-110)
[2019-08-29] MEDS: insulin glargine 100 units/1 mL 20 UNIT SUBCUT (22:23)
[2019-08-30] VITALS: BP 113/73; PULSE 72; RESP 20; TEMP 36.7; O2SAT 96
[2019-08-30 04:00] VITALS: BP 112/73; PULSE 66; RESP 20; TEMP 36.4; O2SAT 97
[2019-08-30] MEDS: piperacillin-tazobactam 3.375 GM in sodium chloride 0.9% (plus) 50 ML IV (05:45)
[2019-08-30] MEDS: sodium chloride 0.9% 1,000 ML 30 ML IV (05:46)
[2019-08-30] MEDS: HYDROcodone-acetaminophen 5-325 mg Tablet 1 TAB PO (05:51)
--- NOTE | 2019-08-30 06:15 | PM.PN ---
Subjective Subjective: Interval history: Mr. Clemens is 1 day status post primary delayed closure and application of wound VAC doing well overnight. Anticipating discharge today, has PICC line in place with plan for ceftriaxone infusion daily for minimum of 3 weeks. Denies any acute events overnight. Patient denies any subjective nausea, vomiting, fever, chills, shortness of breath or chest pain. Vitals/I&O/Wt Last Vital Signs Temp 97.6 F 08/30/19 04:00 Pulse 66 08/30/19 04:00 Resp 20 H 08/30/19 04:00 BP 112/73 08/30/19 04:00 Pulse Ox 97 08/30/19 04:00 08/29/19 08/29/19 08/30/19 14:59 22:59 06:59 Intake Total 270 / 270 290 / 560 170 / 730 Output Total 400 / 400 800 / 1200 550 / 1750 Balance -130 / -130 -510 / -640 -380 / -1020 Physical Exam Narrative: EXAM NARRATIVE: GENERAL: Patient is alert and oriented ?3 and in no acute distress. The following is a focused bilateral lower extremity exam. VASCULAR: Dorsalis pedis and posterior tibial arteries palpable +2. Capillary refill time less than 3 seconds to the distal hallux left foot and less than 3 seconds to the right TMA stump. Calf is supple and nontender proximally and distally. Diminished hair growth at bilateral legs and feet. NEUROLOGICAL: Protective sensation intact 0/10 sites, tested with [place] monofilament to bilateral feet. DERMATOLOGICAL: Some strikethrough bleeding at incision site where primary delayed closure was performed, no active bleeding, wound VAC in place with excellent seal no leaks, set at 125 mmHg. No purulent drainage in canister at this time. Very minimal periwound erythema with no proximal lymphangitic streaking. MUSCULOSKELETAL: Pain to palpation about the tarsal tunnel left foot. Status post right transmetatarsal amputation. There is minor tenderness with range of motion in all 3 cardinal planes to the left foot and ankle. Data : 08/28/19 02:29 08/28/19 02:29 Micro: Microbiology 08/27/19 12:46 Gram Stain - Final Foot - #1 Tissue Culture - Preliminary Coagulase negativ staphylococc A&P Assessment and plan (1) Infectious synovitis: Status: Acute (2) Abscess of left foot: Status: Acute (3) Diabetes mellitus with hyperglycemia, with long-term current use of insulin: Status: Acute Qualifiers: Diabetes mellitus type: type 2 Qualified Code(s): E11.65 - Type 2 diabetes mellitus with hyperglycemia; Z79.4 - residential (current) use of insulin (4) CKD stage 2 due to type 2 diabetes mellitus: Status: Acute 3 days status post I&D left lower extremity. 1 day status post primary delayed closure and application of wound VAC to the left lower extremity. Doing well. -Patient okay for discharge. -Patient to remain nonweightbearing to the left lower extremity, elevate while at rest -Planning on 3 weeks of Rocephin, patient is set up with [facility]. Will continue wound VAC, outpatient VAC is placed this morning by myself. -Recommending wound care follow-up next week -I will see the patient in 2 weeks to continue to monitor. 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
[2019-08-30 07:04] LABS: Glucose Point of Care 167 mg/dL (70-110)
--- NOTE | 2019-08-30 07:13 | PM.DCS ---
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 He was seen in wound care for this. He had a debridement. This was not improving as felt like he needed to be admitted for further wound debridement and IV antibiotics. Cultures revealed Enterobacter sensitive to Rocephin. Patient been placed on Zosyn while in the hospital. Dr. Archer was consulted. He done extensive debridement and secondary closure. Surgery seems successful. Patient was doing much better. He is had a PICC line placed. He is discharged in good condition will continue IV Rocephin for at least 6 weeks through home health. Also has a wound VAC in place. We will follow-up with Dr. Archer and wound care. He has home health consulted. Discharge Data Data Completed and Pending: Completed Studies During Hospitalization Category Date Time Status CT foot LT w con [id number] Urgent Cat Scan 08/21/19 17:35 Completed XR chest 1V prem ble [id number] Routine Exams 08/27/19 12:10 Completed XR foot LT min 3V * [id number] Urgent Exams 08/21/19 16:29 [place] wo/[place] [id number] Routine MRI 08/22/19 14:30 Completed Pending at discharge Category Date Time Status BMP [Basic [employer] lic Panel] Routine Lab 08/30/19 06:15 Ordered Complete Blood Co unt w/Auto Routine Lab 08/30/19 06:15 Ordered Tissue Culture an d Gram Stain Routi ne Lab 08/27/19 12:46 Results Labs from last 24 hours 08/30/19 08/29/19 08/29/19 07:00 21:27 16:47 POC Glucose 167 256 235 08/29/19 08/29/19 10:55 07:55 POC Glucose 268 252 Vitals: Last Vital Signs Temp 97.6 F 08/30/19 04:00 Pulse 66 08/30/19 04:00 Resp 20 H 08/30/19 04:00 BP 112/73 08/30/19 04:00 Pulse Ox 97 08/30/19 04:00 Discharge Plan Discharge Patient Disposition: Home Health Service Condition: Stable Prescriptions: New ceftriaxone 2 gram recon soln 2 gm IVP Q24H 42 Days RF: 0 Continued gabapentin 800 mg tablet 800 mg PO BID RF: 0 lisinopril 20 mg tablet 20 mg PO DAILY RF: 0 hydrocodone-acetaminophen 5-325 mg tablet 1 tab PO TID PRN (Reason: Pain) RF: 0 pravastatin [Pravachol] 40 mg tablet 40 mg PO DAILY RF: 0 aspirin 325 mg tablet 325 mg PO DAILY RF: 0 paroxetine HCl [Paxil] 20 mg tablet 20 mg PO BID RF: 0 Tradjenta 5 mg tablet 5 mg PO DAILY Qty: 90 RF: 3 Novolog Mix 70-30FlexPen U-100 100 unit/mL (70-30) insulin pen See Rx Instructions .ROUTE .COMPLEX RF: 0 Lantus Solostar U-100 Insulin 100 unit/mL (3 mL) insulin pen 50 unit SUBCUT DAILY RF: 0 Discontinued levofloxacin 750 mg tablet 750 mg PO DAILY 10 Days Qty: 10 RF: 0 Discharge Orders: Discharge Order (Routine); Ordered 08/30/19 Ordered By: Thuan Hanks Referrals: [facility] [Other] (This is the infusion pharmacy that will provide your IV medication. If you have any questions or concerns regarding your IV medication or delivery, please call them at the phone number provided.) [facility] [Outside] Thuan Hanks MD [Primary Care Provider] - Discharge Diet: Diabetic Discharge Activity: Limit activity as instructed Activity Restrictions/Additional Instructions: -Discharge home with home health -Wound VAC management per home health and wound care -Follow-up with wound care next week and with Dr. Archer next week. -Follow-up with Dr. Hanks in a couple of weeks -Continue your diabetic management per your confectionery laboratory manager recommendations -Home health to administer Rocephin 2 g IV for 6 weeks. -Home health to perform routine PICC line care and management -Call if increasing pain or signs of infections Discharge Attestations Time Spent in Discharge Care*: greater than 30 min Status at Discharge: Cognitive status at discharge: cognitively intact, Behavioral status at discharge: cooperative, Quality Metrics Clinical Quality Measures During this hospital stay, did patient experience: None Coding Level of Care Code Acute Etl Manager for [facility] Fwd Diagnoses Infectious synovitis M65.10 Abscess of left foot L02.612 Diabetes mellitus with hyperglycemia, with long-term current use of insulin E11.65; Z79.4 Diabetes mellitus type: type 2 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
[2019-08-30 07:31] VITALS: BP 118/73; PULSE 65; RESP 16; TEMP 36.4; O2SAT 98
[2019-08-30 07:34] LABS: Basophils # 0.1 10^3/uL (0.0-0.1); Basophils % 0.8 %; Eosinophils # 0.3 10^3/uL (0.0-0.8); Eosinophils % 3.4 %; Hematocrit 40.2 % (42.0-52.0); Hemoglobin 13.3 g/dL (11.7-16.6); Lymphocytes # 2.3 10^3/uL (0.8-4.8); Lymphocytes % 26.5 %; Mean Corpuscular HGB Conc 33.1 g/dL (30.0-36.0); Mean Corpuscular Hemoglobin 30.8 pg (28.0-34.0); Mean Corpuscular Volume 93.1 fL (80-94); Mean Platelet Volume 9.5 fL (7.4-10.4); Monocytes # 0.6 10^3/uL (0.2-0.9); Neutrophils # 5.41 10^3/uL (1.8-7.7); Neutrophils % 61.7 %; Nucleated Red Blood Cells % 0 %; Platelet Count 497 10^3/cmm (130-400); Red Blood Count 4.32 10^6/uL (4.1-5.3); Red Cell Distribution Width 12.4 % (12.1-15.1); White Blood Count 8.8 10^3/uL (4.0-10.0)
[2019-08-30 07:54] LABS: Anion Gap 14.2 (5-19); Blood Urea Nitrogen 12 mg/dL (6-20); Calcium 9.7 mg/dL (8.5-10.5); Carbon Dioxide 25 mmol/L (22-29); Chloride 100 mmol/L (98-107); Glomerular Filtration Rate 86.4 mL/min (90-130); Glucose 178 mg/dL (65-115); Osmolality Calculated 281 mOsm/kg (285-295); Potassium 4.2 mmol/L (3.5-5.1); Sodium 135 mmol/L (136-145)
[2019-08-30] MEDS: atorvastatin 40 mg Tablet 20 MG PO (09:43)
[2019-08-30] MEDS: aspirin 325 mg Tablet PO (09:43)
[2019-08-30] MEDS: gabapentin 400 mg Capsule 800 MG PO (09:44)
[2019-08-30] MEDS: PARoxetine 20 mg Tablet PO (09:45)
[2019-08-30 11:04] LABS: Glucose Point of Care 256 mg/dL (70-110)
[2019-08-30 11:14] VITALS: BP 142/76; PULSE 72; RESP 17; TEMP 36.7; O2SAT 96
[2019-08-30] MEDS: cefTRIAXone 2,000 MG in sodium chloride 0.9% (plus) 50 ML 100 MG IV (11:36)
[2019-08-30 14:40] VITALS: BP 142/76; PULSE 72; RESP 17; TEMP 36.7; O2SAT 96
--- NOTE | 2019-08-30 15:10 | PC.SOCIAL ---
IM FOLLOW UP LATE ENTRY FOR 1000 DATED TIMED INITIALED AND EXPLAINED IM TO PATIENT. HE INDICATES READY TO GO. VERBALIZED UNDERSTANDING AND THEN DISCUSSED DISCHARGE NEEDS.
== END 2019-08-30 12:00 | disposition home health service (06) | DRG 500 ==
LOC: ER 20:03 → MEDSURG 20:43
PROVIDERS: Physician Assistant; Podiatrist Foot & Ankle Surgery; Student in an Organized Health Care Education/Training Program; Admitting Provider Internal Medicine; PCP Family Medicine; Visit Provider Family Medicine
PROC: 0KBW0ZZ Excision of Left Foot Muscle, Open Approach (ICD-10-PCS; principal; 2019-08-27 12:00)
PROC: 0LBW0ZZ Excision of Left Foot Tendon, Open Approach (ICD-10-PCS; CPT 13160; principal; 2019-08-29 07:00)
PROC: 0LBW0ZZ Excision of Left Foot Tendon, Open Approach (ICD-10-PCS; 2019-08-29 07:00)
DX: M65.172 Other infective (teno)synovitis, left ankle and foot (principal); A48.0 Gas gangrene; M72.6 Necrotizing fasciitis; L02.612 Cutaneous abscess of left foot; Z16.20 Resistance to unspecified antibiotic; M00.872 Arthritis due to other bacteria, left ankle and foot; L03.116 Cellulitis of left lower limb; E11.65 Type 2 diabetes mellitus with hyperglycemia; N18.2 Chronic kidney disease, stage 2 (mild); E11.22 Type 2 diabetes mellitus with diabetic chronic kidney disease; B96.89 Other specified bacterial agents as the cause of diseases classified elsewhere; Z89.431 Acquired absence of right foot; I12.9 Hypertensive chronic kidney disease with stage 1 through stage 4 chronic kidney disease, or unspecified chronic kidney disease; E66.01 Morbid (severe) obesity due to excess calories; Z68.36 Body mass index [BMI] 36.0-36.9, adult; E78.00 Pure hypercholesterolemia, unspecified; Z86.73 Personal history of transient ischemic attack (TIA), and cerebral infarction without residual deficits; L60.3 Nail dystrophy; Z89.021 Acquired absence of right finger(s); Z87.891 Personal history of nicotine dependence; E11.42 Type 2 diabetes mellitus with diabetic polyneuropathy; Z79.4 Long term (current) use of insulin
CPT/HCPCS: 12345; 36415; 36416; 36569; 71045; 73630; 73701; 73720; 80048; 80053; 82962; 83605; 83735; 84100; 85025; 85651; 86140; 87040; 87070; 87077; 87176; 87186; 87205; 90471; 90732; 96372; 99283; A9579; G0463; J0696; J1650; J1815 ×2; J2001; J2020; J2250; J2543; J2704; J3010; J7030; Q9967

== ENCOUNTER 2019-09-06 07:55 | Outpatient (CLI) | payer MEDICARE, SELFPAY | END 2019-09-06 07:56 | disposition home or self-care (01) | LOC: WOUND 07:56 | PROVIDERS: PCP Family Medicine; Visit Provider Surgery | DX: E11.621 Type 2 diabetes mellitus with foot ulcer (principal); L97.423 Non-pressure chronic ulcer of left heel and midfoot with necrosis of muscle | CPT/HCPCS: 11043 ==

== ENCOUNTER 2019-09-09 07:50 | Outpatient (CLI) | payer MEDICARE, SELFPAY | END 2019-09-09 07:51 | disposition home or self-care (01) | LOC: WOUND 07:57 | PROVIDERS: PCP Family Medicine; Visit Provider Emergency Medicine | DX: E11.621 Type 2 diabetes mellitus with foot ulcer (principal); L97.525 Non-pressure chronic ulcer of other part of left foot with muscle involvement without evidence of necrosis; M72.6 Necrotizing fasciitis; M67.972 Unspecified disorder of synovium and tendon, left ankle and foot | CPT/HCPCS: 99212; A6446 ==

== ENCOUNTER → 2019-09-18 10:19 | Outpatient (BNVA) | payer MEDICARE, MEDICAID, SELFPAY | PROVIDERS: PCP Family Medicine; Visit Provider Internal Medicine | DX: E11.65 Type 2 diabetes mellitus with hyperglycemia (principal); E11.42 Type 2 diabetes mellitus with diabetic polyneuropathy; E78.00 Pure hypercholesterolemia, unspecified; Z79.4 Long term (current) use of insulin | CPT/HCPCS: 99202 ==

== ENCOUNTER → 2019-10-02 10:36 | Outpatient (BNVA) | payer MEDICARE, SELFPAY | PROVIDERS: PCP Family Medicine; Visit Provider Internal Medicine | DX: E11.65 Type 2 diabetes mellitus with hyperglycemia (principal); Z79.4 Long term (current) use of insulin; E78.00 Pure hypercholesterolemia, unspecified; E11.42 Type 2 diabetes mellitus with diabetic polyneuropathy; E66.01 Morbid (severe) obesity due to excess calories; I10 Essential (primary) hypertension | CPT/HCPCS: 99214 ==

== ENCOUNTER 2019-10-02 13:19 | Outpatient (CLI) | payer MEDICARE, SELFPAY ==
--- NOTE | 2019-10-02 13:44 | XRR_ITS ---
PROCEDURE INFORMATION: Exam: XR Left Foot Complete Exam date and time: 10/02/2019 2:01 PM Age: 59 years old Clinical indication: Condition or disease; Other: Post op; Prior surgery; Surgery date: Post-operative (0-2 days); Patient HX: Shoaib nail in foot TECHNIQUE: Imaging protocol: XR Left foot. Views: 3 or more views. COMPARISON: MR foot LT wo/w con [id number] 08/22/2019 3:26 PM FINDINGS: Bones/joints: No fracture. Hallux valgus deformity of the 1st MTP joint. Soft tissues: Plantar soft tissue wound, no radiodense or metallic foreign body. XR/XR foot LT min 3V* [id number] IMPRESSION: Soft tissue wound/injury.
== END 2019-10-02 13:20 | disposition home or self-care (01) ==
LOC: RAD 13:26
PROVIDERS: PCP Family Medicine; Visit Provider Podiatrist Foot & Ankle Surgery
DX: Z98.890 Other specified postprocedural states (principal)
CPT/HCPCS: 73630

== ENCOUNTER 2019-10-05 13:38 | Emergency (ER) | payer MEDICARE, SELFPAY ==
[2019-10-05 13:45] VITALS: BP 131/81; PULSE 108; RESP 18; TEMP 36.7; O2SAT 95; BMI 35.9
--- NOTE | 2019-10-05 13:49 | XRR_ITS ---
PROCEDURE INFORMATION: Exam: XR Chest, 1 View Exam date and time: 10/05/2019 4:09 PM Age: 59 years old Clinical indication: Device placement; Picc; Additional info: Picc positioning TECHNIQUE: Imaging protocol: XR of the chest Views: 1 view. COMPARISON: CR XR chest 1V portable [id number] 08/27/2019 1:38 PM FINDINGS: Tubes, catheters and devices: There is a right subclavian PICC line with tip in the right subclavian vein projected over the right clavicular head. Lungs: The pulmonary vascularity is within normal limits. There are punctate calcified granulomas. No consolidation. Mild left basilar pneumonitis versus atelectasis is noted. Pleural space: Unremarkable. No pleural effusion. No pneumothorax. Heart/Mediastinum: Unremarkable. No cardiomegaly. Bones/joints: No acute abnormality. XR/XR chest 1V portable [id number] IMPRESSION: 1. There is a right subclavian PICC line with tip in the right subclavian vein projected over the right clavicular head. 2. Mild left basilar pneumonitis versus atelectasis is noted.
--- NOTE | 2019-10-05 16:45 | W.ED.GENADLT ---
HPI - General Adult General: Chief complaint: General Medical Stated complaint: picc line problems Time Seen by Provider: 10/05/19 16:24 History of Present Illness: HPI narrative: 59-year-old male patient presents to the emergency department with PICC line issue. He reports receives 2 g of Rocephin per PICC line daily due to wound to the left foot. He reports upon awakening from nap today, approximately 3 hours ago, PICC line was pulled out 4 inches. He reports irritation from the adhesion tape at the insertion site and is requesting discontinuation. Onset (ago): hour(s) (3.5) Location: right and upper extremity Associated symptoms: Reports no associated symptoms; Deny chest pain, diaphoresis, dyspnea, headache(s), nausea, rash, palpitations or vomiting Review of Systems General: Reports: 10 or more systems reviewed and unremarkable except in HPI and below Const: Denies: fever(s), chills or diaphoresis Eyes: Denies: blurry vision or eye redness ENMT: Denies: throat pain, dental pain or disequilibrium Card: Denies: chest pain, palpitations or irregular heart rhythm Resp: Denies: dyspnea, productive cough, non-productive cough or wheezing GI: Denies: abdominal pain, nausea or vomiting : Denies: dysuria Musc: Denies: back pain Skin/Breast: Reports: other (left lower extremity wound - chronic x 6 weeks); Denies: rash or pruritus Neuro: Denies: headache(s), weakness in extremities or behavioral changes Austyn/Lymph: Denies: easy bruising PFS ED PFSH: Medical History (Updated 10/05/19 @ 17:04 by IVY Batres) CKD stage 2 due to type 2 diabetes mellitus -CKD stage 2, Diabetes mellitus with hyperglycemia, with long-term current use of insulin Diabetic peripheral neuropathy associated with type 2 diabetes mellitus -on gabapentin History of stroke hx of embolic CVA in 2006 -on ASA, statin Hypercholesteremia Hypertension Morbid obesity -BMI-36 kg/m2 Onychodystrophy Surgical History Amputation of right index finger in 2010 History of amputation of right foot History of knee surgery bilateral History of transmetatarsal amputation of right foot Family History Father CAD (coronary artery disease) Mother Diabetes Other Stroke Social History Smoking and tobacco status: former smoker Alcohol intake: never Lives independently: Yes Marital status: History of recent travel: No Physical Exam Const: COMMON NORMALS: no acute distress, patient oriented x3, healthy appearing and alert GENERAL APPEARANCE: cooperative, comfortable and well hydrated HENMT: COMMON NORMALS: normocephalic, Normal external nose present and moist oral mucous membranes HEAD & SCALP: normocephalic NOSE: Normal external nose present Eye: COMMON NORMALS: Equal, round and reactive pupils present and EOMs intact bilaterally GENERAL EYE: appearance normal, both eyes and all related structures PUPIL: Yes Equal, round and reactive pupils present Neck/C-Spine: COMMON NORMALS: full ROM and no lymphadenopathy GENERAL: Yes normal visual inspection and Yes trachea midline CERVICAL SPINE: Yes cervical ROM normal Lymph: LYMPHATIC: no lymphadenopathy noted Chest: COMMONS NORMALS: normal inspection of the chest Resp: COMMON NORMALS: normal respiratory effort and clear to auscultation bilaterally AUSCULTATION: clear to auscultation bilaterally Cardio: COMMON NORMALS: regular rhythm, S1 normal heart sound present and S2 normal heart sound present RHYTHM: regular rhythm HEART SOUNDS: S1 normal heart sound present and S2 normal heart sound present GI: COMMON NORMALS: Soft to palpation and non-tender INSPECTION: Yes normal to inspection PALPATION: Yes Soft to palpation : COMMON NORMALS: Yes no CVA tenderness BLADDER/KIDNEY EXAM: Yes no CVA tenderness Back/Pelvis: COMMON NORMALS: no CVA tenderness and thoracic and lumbar spine normal to inspection Extremity: COMMON NORMALS: normal to inspection and capillary refill normal Neuro: COMMON NORMALS: patient oriented x3 and no focal motor deficits SENSORIUM/ORIENTATION: Yes alert Psych: COMMON NORMALS: mental status grossly normal, Normal thought process present and cooperative ACTIVITY/MOTOR BEHAVIOR: Yes appropriate eye contact THOUGHT PROCESS: Normal thought process present Skin: COMMON NORMALS: no rashes or lesions noted and turgor normal GENERAL SKIN EXAM: no rashes or lesions noted and turgor normal OTHER: excoriation from dressing to the RUE - PICC line is partially out - no erythema or drainage at the site. dressing and walking boot to the LLE - notes reviewed by Dr Archer from 10/02/2019 - spoke with Keena from [facility] - continues with wound clinic care through [facility] and [facility]. [facility] not able to care for saline lock, peripheral IV in the home - reports, too much liability Course Consultations: Consultation #1: spoke with Dr Mehta - Dr Archer not validation manager - attempted to contact him via phone - left message - no returned call. Dr Mehta advised would need to speak with Dr Archer to change antibiotic dosing. Order to [place] [facility], LYNDA Brink, to complete saline lock tomorrow and infuse medication tomorrow - will need to contact Dr Archer Monday. Time: 16:40 Time: 17:45 Consultation #3: Dr Archer - advised pt will need IV abx continued - PICC line will need to be placed on Monday. Update pt will receive 2 grams of IV abx tomorrow through the ED. [facility] not able to care for Saline lock Vital Signs: Vital signs: Vital Signs Temperature 98.1 F 10/05/19 17:29 Pulse Rate 108 H 10/05/19 13:45 Respiratory Rate 18 10/05/19 17:29 Blood Pressure 131/81 10/05/19 13:45 Pulse Oximetry 95 10/05/19 17:29 Discharge Plan Discharge Patient Disposition: Home Clinical Impression: Displacement of peripherally inserted central catheter (PICC) Condition: Stable Prescriptions: No Action gabapentin 800 mg tablet 800 mg PO BID RF: 0 lisinopril 20 mg tablet 20 mg PO DAILY RF: 0 hydrocodone-acetaminophen 5-325 mg tablet 1 tab PO TID PRN (Reason: Pain) RF: 0 pravastatin [Pravachol] 40 mg tablet 40 mg PO DAILY RF: 0 aspirin 325 mg tablet 325 mg PO DAILY RF: 0 paroxetine HCl [Paxil] 20 mg tablet 20 mg PO BID RF: 0 insulin aspart U-100 [Novolog Flexpen U-100 Insulin] 100 unit/mL (3 mL) insulin pen 15 unit SUBCUT .take before meals Qty: 3 RF: 3 doxycycline hyclate 100 mg capsule 100 mg PO BID 14 Days Qty: 28 RF: 0 Trulicity 0.75 mg/0.5 mL pen injector 0.75 mg SUBCUT .qweekly Qty: 1 RF: 0 Trulicity 1.5 mg/0.5 mL pen injector 1.5 mg SUBCUT .qweekl Qty: 2 RF: 3 Lantus Solostar U-100 Insulin 100 unit/mL (3 mL) insulin pen 50 unit SUBCUT DAILY RF: 0 ceftriaxone 2 gram recon soln 2 gm IVP Q24H 42 Days RF: 0 Discharge Orders: Discharge Order (Routine); Ordered 10/05/19 Ordered By: Elizabeth Hudson Referrals: Thuan Hanks MD [Primary Care Provider] - Discharge Diet: Advance as tolerated Discharge Activity: Resume usual activity Activity Restrictions/Additional Instructions: CAll Dr Archer on Monday for further orders with Rocephin / PICC line removal Return to the ED for any fever, chills or other concerning symptoms return to the ED tomorrow for IV infusion of Rocephin Discharge Date/Time: 10/05/19 17:29 Coding Level of Care Code ED Director Of Sustainable Design for [facility] Fwd Exam Comprehensive
--- NOTE | 2019-10-05 17:28 | PC.NURSE ---
PICC line removed per orders, IV started, pt instructed to notify HH on PICC removal for further instruction of IV use for IV antibiotics, patient agreeable at this time.
[2019-10-05 17:29] VITALS: RESP 18; TEMP 36.7; O2SAT 95
--- NOTE | 2019-10-07 09:38 | DCPLANNER ---
Addendum entered by Melissa Lagunas 10/07/19 14:11: After speaking with patient about a scheduled appointment for patient for his antibiotics, patient stated that he does not need this now, he is being switched to oral antibiotics. manager control called the ortho clinic, and confirmed this with Esme. Nat also stated that she would call centralized scheduling and cancel the appointment for today and the appointment for the PICC line tomorrow. Original Note: manager control had order to schedule a PICC line for patient. manager control called the ortho clinic, spoke with Esme, Dr. Donohue nurse, to discuss what director case would need to do in order to schedule PICC line. After speaking with physician, an order by Dr. Archer was put in for PICC line. manager control called centralized scheduling, spoke with Tatyana, was told that the order could not be found. manager control went to [facility], had Dr. Archer fill out and sign an out patient order request for PICC line. manager control faxed order to centralized scheduling, will call for appointment information.
== END 2019-10-05 17:29 | disposition home or self-care (01) ==
PROVIDERS: Emergency Provider Nurse Practitioner Family; PCP Family Medicine
DX: T82.898A Other specified complication of vascular prosthetic devices, implants and grafts, initial encounter (principal); Z79.82 Long term (current) use of aspirin; Z79.4 Long term (current) use of insulin; I12.9 Hypertensive chronic kidney disease with stage 1 through stage 4 chronic kidney disease, or unspecified chronic kidney disease; E11.22 Type 2 diabetes mellitus with diabetic chronic kidney disease; N18.2 Chronic kidney disease, stage 2 (mild); E11.42 Type 2 diabetes mellitus with diabetic polyneuropathy; Z86.73 Personal history of transient ischemic attack (TIA), and cerebral infarction without residual deficits; Z87.891 Personal history of nicotine dependence
CPT/HCPCS: 12345; 71045; 99281; 99283

== ENCOUNTER 2019-10-06 08:54 | Emergency (ER) | payer MEDICARE, SELFPAY ==
[2019-10-06 08:57] VITALS: BMI 35.9
--- NOTE | 2019-10-06 08:57 | W.ED.GENADLT ---
HPI - General Adult General: Chief complaint: General Medical Stated complaint: INFUSION FROM ER Time Seen by Provider: 10/06/19 08:55 History of Present Illness: HPI narrative: 59-year-old male patient presents to the emergency department for 2 g Rocephin injection. Per Dr. Archer from yesterday's conversation, patient is to return to the emergency department for 2 g Rocephin infusion due to discontinued PICC line. He continues to receive Rocephin due to ongoing infection into the left lower extremity. He has no complaints today -referral sent to case management for PICC line placement tomorrow per Dr. Archer. Associated symptoms: Deny chest pain, diaphoresis, dyspnea, headache(s), nausea, rash, palpitations or vomiting Review of Systems General: Reports: 10 or more systems reviewed and unremarkable except in HPI and below Const: Denies: fever(s), chills or diaphoresis Eyes: Denies: blurry vision or eye redness ENMT: Denies: throat pain, dental pain or disequilibrium Card: Denies: chest pain, palpitations or irregular heart rhythm Resp: Denies: dyspnea, productive cough, non-productive cough or wheezing GI: Denies: abdominal pain, nausea or vomiting : Denies: dysuria Musc: Denies: back pain Skin/Breast: Reports: other (Continued chronic wound to the left lower extremity, denies changes, continues under the care of wound care and home health); Denies: rash or pruritus Neuro: Denies: headache(s), weakness in extremities or behavioral changes Austyn/Lymph: Denies: easy bruising PFSH ED PFSH: Medical History CKD stage 2 due to type 2 diabetes mellitus -CKD stage 2, Diabetes mellitus with hyperglycemia, with long-term current use of insulin Diabetic peripheral neuropathy associated with type 2 diabetes mellitus -on gabapentin History of stroke hx of embolic CVA in 2006 -on ASA, statin Hypercholesteremia Hypertension Morbid obesity -BMI-36 kg/m2 Onychodystrophy Surgical History Amputation of right index finger in 2010 History of amputation of right foot History of knee surgery bilateral History of transmetatarsal amputation of right foot Family History Father CAD (coronary artery disease) Mother Diabetes Other Stroke Social History Smoking and tobacco status: former smoker Alcohol intake: never Lives independently: Yes Marital status: History of recent travel: No Physical Exam Const: COMMON NORMALS: no acute distress, patient oriented x3 and alert GENERAL APPEARANCE: cooperative, comfortable and well hydrated HENMT: COMMON NORMALS: normocephalic, Normal external nose present and moist oral mucous membranes HEAD & SCALP: normocephalic NOSE: Normal external nose present Eye: COMMON NORMALS: Equal, round and reactive pupils present and EOMs intact bilaterally GENERAL EYE: appearance normal, both eyes and all related structures PUPIL: Yes Equal, round and reactive pupils present Neck/C-Spine: COMMON NORMALS: full ROM and no lymphadenopathy GENERAL: Yes normal visual inspection and Yes trachea midline CERVICAL SPINE: Yes cervical ROM normal Lymph: LYMPHATIC: no lymphadenopathy noted Chest: COMMONS NORMALS: normal inspection of the chest Resp: COMMON NORMALS: normal respiratory effort and clear to auscultation bilaterally AUSCULTATION: clear to auscultation bilaterally Cardio: COMMON NORMALS: regular rhythm, S1 normal heart sound present and S2 normal heart sound present RHYTHM: regular rhythm HEART SOUNDS: S1 normal heart sound present and S2 normal heart sound present GI: COMMON NORMALS: Soft to palpation and non-tender INSPECTION: Yes normal to inspection PALPATION: Yes Soft to palpation : COMMON NORMALS: Yes no CVA tenderness BLADDER/KIDNEY EXAM: Yes no CVA tenderness Back/Pelvis: COMMON NORMALS: no CVA tenderness and thoracic and lumbar spine normal to inspection Extremity: COMMON NORMALS: normal to inspection and capillary refill normal NARRATIVE EXTREMITY EXAM: Left cam boot in place, no erythema, tednerness to the left plunkett/calf. Neuro: COMMON NORMALS: patient oriented x3 and no focal motor deficits SENSORIUM/ORIENTATION: Yes alert Psych: COMMON NORMALS: mental status grossly normal, Normal thought process present and cooperative ACTIVITY/MOTOR BEHAVIOR: Yes appropriate eye contact THOUGHT PROCESS: Normal thought process present Skin: COMMON NORMALS: turgor normal NARRATIVE SKIN EXAM: excoriation to the RUE from adhesive tape from PICC line dressing - no erythema/pain to the RUE GENERAL SKIN EXAM: turgor normal Course Vital Signs: Vital signs: Vital Signs Temperature 98.1 F 10/06/19 08:59 Pulse Rate 94 10/06/19 10:02 Respiratory Rate 16 10/06/19 08:59 Blood Pressure 157/83 10/06/19 08:59 Pulse Oximetry 95 10/06/19 10:02 Discharge Plan Discharge Patient Disposition: Home Clinical Impression: Antibiotic long-term use, Wound cellulitis Condition: Stable Prescriptions: No Action gabapentin 800 mg tablet 800 mg PO BID RF: 0 lisinopril 20 mg tablet 20 mg PO DAILY RF: 0 hydrocodone-acetaminophen 5-325 mg tablet 1 tab PO TID PRN (Reason: Pain) RF: 0 pravastatin [Pravachol] 40 mg tablet 40 mg PO DAILY RF: 0 aspirin 325 mg tablet 325 mg PO DAILY RF: 0 paroxetine HCl [Paxil] 20 mg tablet 20 mg PO BID RF: 0 insulin aspart U-100 [Novolog Flexpen U-100 Insulin] 100 unit/mL (3 mL) insulin pen 15 unit SUBCUT .take before meals Qty: 3 RF: 3 doxycycline hyclate 100 mg capsule 100 mg PO BID 14 Days Qty: 28 RF: 0 Trulicity 0.75 mg/0.5 mL pen injector 0.75 mg SUBCUT .qweekly Qty: 1 RF: 0 Trulicity 1.5 mg/0.5 mL pen injector 1.5 mg SUBCUT .qweekl Qty: 2 RF: 3 Lantus Solostar U-100 Insulin 100 unit/mL (3 mL) insulin pen 50 unit SUBCUT DAILY RF: 0 ceftriaxone 2 gram recon soln 2 gm IVP Q24H 42 Days RF: 0 ceftriaxone 500 mg recon soln 1 gm IM DAILY Qty: 3 RF: 0 water for injection, sterile Solution See Rx Instructions .ROUTE .COMPLEX Qty: 10 RF: 0 Discharge Orders: Discharge Order (Routine); Ordered 10/06/19 Ordered By: Elizabeth Hudson Referrals: Thuan Hanks MD [Primary Care Provider] - Discharge Diet: Usual diet Discharge Activity: Resume usual activity Activity Restrictions/Additional Instructions: Continue to follow-up with wound care, continue follow-up with home health Case management has been consulted in regards to PICC line placement for tomorrow, Continue to follow-up with Dr. Archer, you are to continue receiving 2 g of Rocephin, your antibiotic, daily. Return to the emergency department for any new concerning symptoms such as fever chills Discharge Date/Time: 10/06/19 10:05 Coding Level of Care Code ED Canine Service Instructor Trainer for Curtis Fwezequiel Exam Comprehensive
[2019-10-06 08:59] VITALS: BP 157/83; PULSE 96; RESP 16; TEMP 36.7; O2SAT 93
[2019-10-06] MEDS: cefTRIAXone 2,000 MG in sodium chloride 0.9% (plus) 50 ML 100 MG IV (09:07)
[2019-10-06 10:02] VITALS: PULSE 94; O2SAT 95
== END 2019-10-06 10:05 | disposition home or self-care (01) ==
PROVIDERS: Emergency Provider Nurse Practitioner Family; PCP Family Medicine
DX: L03.116 Cellulitis of left lower limb (principal); Z79.2 Long term (current) use of antibiotics; Z79.82 Long term (current) use of aspirin; Z79.4 Long term (current) use of insulin; I12.9 Hypertensive chronic kidney disease with stage 1 through stage 4 chronic kidney disease, or unspecified chronic kidney disease; E11.22 Type 2 diabetes mellitus with diabetic chronic kidney disease; N18.2 Chronic kidney disease, stage 2 (mild); E11.42 Type 2 diabetes mellitus with diabetic polyneuropathy; Z86.73 Personal history of transient ischemic attack (TIA), and cerebral infarction without residual deficits; Z87.891 Personal history of nicotine dependence
CPT/HCPCS: 12345; 96365; 99281; 99283; J0696

== ENCOUNTER → 2019-11-19 16:18 | Outpatient (BNVA) | payer MEDICARE, SELFPAY | PROVIDERS: PCP Family Medicine; Visit Provider Podiatrist Foot & Ankle Surgery | DX: L97.323 Non-pressure chronic ulcer of left ankle with necrosis of muscle (principal) | CPT/HCPCS: 87635 ==

== ENCOUNTER 2019-11-22 08:21 | Day surgery (SDC) | payer MEDICARE, SELFPAY ==
[2019-11-22 08:41] VITALS: BP 125/86; PULSE 93; RESP 18; TEMP 36.1; O2SAT 97
[2019-11-22 09:32] LABS: Glucose Point of Care 505 mg/dL (70-110)
[2019-11-22 09:32] LABS: Glucose Point of Care 532 mg/dL (70-110)
[2019-11-22] MEDS: insulin regular-human 100 units/1 mL 10 UNIT IVP (09:40)
[2019-11-22] MEDS: sodium chloride 0.9% 1,000 ML 30 ML IV (09:46)
--- NOTE | 2019-11-22 10:06 | P.HPUD_ITS ---
Surgery/Procedure H&P Update DATE OF PROCEDURE: November 22, 2019 DATE H&P PERFORMED: 11/19/19 H&P UPDATE INFORMATION: I have reviewed H&P completed within last 30 days, I have examined patient prior to procedure, No changes to prior documentation and [place] [facility] date indicated PREOP DIAGNOSIS: Puncture wound with deep penetrating wound left foot PLANNED PROCEDURE: Operation Date: 11/22/19 10:00 Proposed Procedures p Primary Delayed closure left lower extremity wound 78619 L97.423(Left) - Josh Archer DPM
--- NOTE | 2019-11-22 10:12 | ANES.PREANE2 ---
Pre-Anesthetic Assessment Pre-Anesthetic Assessment: Height/Weight: Height 1.83 m Weight 117.934 kg Temp Pulse Resp BP Pulse Ox 96.9 F L 93 18 125/86 97 11/22/19 08:41 11/22/19 08:41 11/22/19 08:41 11/22/19 08:41 11/22/19 08:41 Preop Diagnosis: Puncture wound with deep penetrating wound left foot Proposed Procedure: Operation Date: 11/22/19 10:00 Proposed Procedures p Primary Delayed closure left lower extremity wound 53770 L97.423(Left) - Josh Archer DPM Familial anesthetic complications: None Last intake: Intake Last Liquid Date 11/21/19 Last Solid Date 11/21/19 Last Solid Time 22:00 Social: Comment: chews tobacco Exam: Pre-Anes Outpt Exam: alert, oriented x 3, clear to auscultation bilaterally and regular rate & rhythm Airway: Cervical ROM: WNL MP: 3 Dentition: Chipped CV/HEM: CV/HEM: HTN : : Chronic renal Insufficiency Metabolic: Metabolic: DM and Morbid obesity Anesthetic Plan: ASA status: 3 Anesthesia: MAC Risk of > 500 ml blood loss (7ml/kg in children): No Other Pertinent Information: Patient did not follow his insulin regimen leading to spike in BG. We initiated treatment with insulin regular 10 units IV. This is will not be corrected in time for surgery as fast correction leads to cerebral edema. Spoke with Dr. Archer and due to nature of injury and patient otherwise stable we will poceed with low risk surgery under local+/-MAC. Will re-check sugar in pacu Meds/Allergies Current Medications: Current Medications Generic Name Dose Route Start Last Admin Trade Name Freq PRN Reason Stop Dose Admin Sodium Chloride 1,000 mls @ 30 ml s/hr 11/22/19 08:45 11/22/19 09:46 Sodium Chloride 0.9% IV 11/23/19 08:44 30 mls/hr .Q24H LASHELL Administration PFSH Anesthesia PFSH: Medical History CKD stage 2 due to type 2 diabetes mellitus -CKD stage 2, Diabetes mellitus with hyperglycemia, with long-term current use of insulin Diabetic peripheral neuropathy associated with type 2 diabetes mellitus -on gabapentin History of stroke hx of embolic CVA in 2006 -on ASA, statin Hypercholesteremia Hypertension Morbid obesity -BMI-36 kg/m2 Onychodystrophy Surgical History Amputation of right index finger in 2011 History of amputation of right foot History of knee surgery bilateral History of transmetatarsal amputation of right foot Family History Father CAD (coronary artery disease) Mother Diabetes Other Stroke Social History Smoking and tobacco status: former smoker Alcohol intake: never Lives independently: Yes Marital status: History of recent travel: No Data Anesthesia Other Labs: Laboratory Results - last 48 hr 11/22/19 11/22/19 09:17 09:20 POC Glucose 532 505 Cardiac Studies: No Data to Display
[2019-11-22 10:24] LABS: Glucose Point of Care 443 mg/dL (70-110)
[2019-11-22] MEDS: vancomycin 1,000 MG SDV 1000 MG (10:48)
[2019-11-22] MEDS: lidocaine 1% INJ 20 mL (10:49)
[2019-11-22 11:00] VITALS: BP 134/84; PULSE 84; RESP 18; TEMP 36.4; O2SAT 98
[2019-11-22 11:28] VITALS: BP 123/82; PULSE 83; RESP 18; O2SAT 94
--- NOTE | 2019-11-22 12:10 | ANE.PACU2 ---
Inpatient post-anesthesia follow up: Airway intact: Yes Vital signs: Temperature 97.6 F Pulse Rate 83 Respiratory Rate 18 Blood Pressure 123/82 Pulse Oximetry 94 Oxygen Delivery Me thod Room Air Oxygen Flow Rate Fraction of Inspir ed Oxygen Hydration adequate: Yes Nausea and vomiting: No Pain level: 1 Mental status: Baseline
--- NOTE | 2019-11-25 21:23 | PM.OP ---
Operative Report Date of procedure: November 25, 2019 Pre-op Diagnosis: Puncture wound with deep penetrating wound left foot Post-op diagnosis: same Procedure Done: Primary Delayed closure left lower extremity wound 30438 Implants: 2-0 Prolene Specimens removed/disposition: None Pathology: none sent Surgeon: Josh Archer D.P.M. Window And Door Installer: Violeta Anesthesia: MAC Estimated blood loss: 10 mL Tourniquet time: Intraoperative documentation IV fluids: None Urine output: None Complications: None Findings: Deep wound to myofascial layer left plantar heel with hyper granulation tissue and macerated skin margin. Condition: stable Disposition: PACU Brief History: Patient sustained a puncture wound from christa metal nail has had multiple surgical debridement and partial closure, underwent PICC line therapy guided by deep surgical culture as well as oral antibiotics. Has been offloaded and continued wound care locally with some improvement has a full-thickness wound to his left heel recommending primary delayed closure at this time as it appears clinically uninfected. Patient is agreeable wishes to proceed. Risks include pain, bleeding, numbness, infection, failure of closure, damage to adjacent soft tissue structures, painful scar, abscess formation, re-ulceration, dehiscence and need for further surgical intervention this could also lead to higher level of amputation such as below-knee amputation. Patient is agreeable wishes to proceed. Patient seen preoperatively, left lower extremity initialed by myself, consent signed by myself and patient no guarantees written, expressed or implied. Procedure: Under mild sedation the patient was brought to the operating room and placed on the operating table in supine position. A timeout was performed. Anesthesia was then administered by the anesthesia service. Local anesthesia injected by myself consisting of 20 cc of 1% lidocaine plain and a posterior tibial nerve block and saphenous nerve block as well as sural nerve block fashion. Well-padded pneumatic tourniquet applied to the left ankle. Left lower extremity was scrubbed, prepped and draped utilizing normal aseptic technique. Tourniquet was then inflated to 250 mmHg. Attention was directed to the left plantar heel wound measures 5 cm x 1 cm and probes 2.5 cm deep not directly to bone. Significant hyper granular tissue appreciated yet using a rondure hyper granulation was sharply debrided and passed from the operative field. Incision site was irrigated with saline solution. Skin margins were excised to fresh healthy epidermis, dermis and subcutaneous tissue. Further irrigation at this time was performed utilizing pulse lavage. The wound was debrided of all nonviable epidermis, dermis, subcutaneous tissue, fat layer, muscle and fascia utilizing sharp excisional debridement. Further irrigation was performed and the wound was closed utilizing 2-0 Prolene with skin margins approximating without tension. I did not encounter purulent drainage or foreign body throughout the procedure, did not encounter calcaneal bone throughout the procedure. Incision site was dressed with Adaptic, sterile 4 x 4, Kerlix and Avi wrap. Tourniquet was deflated and a prompt hyperemic response was noted to the distal digits of the left foot. Patient tolerated the procedure well and was transferred to the PACU with vital signs stable and vascular status intact. Following a period of postop monitoring he will be discharged home will continue oral antibiotics previously prescribed. He will be given a Ortho heel shoe for heel offloading via ANDREW&O. Patient will follow-up in podiatry clinic next week.
== END 2019-11-22 12:10 | disposition home or self-care (01) ==
PROVIDERS: PCP Family Medicine; Visit Provider Podiatrist Foot & Ankle Surgery
PROC: (CPT 13160; principal; 2019-11-22 09:50)
DX: S91.332A Puncture wound without foreign body, left foot, initial encounter (principal); W22.8XXA Striking against or struck by other objects, initial encounter; E66.01 Morbid (severe) obesity due to excess calories; Z68.35 Body mass index [BMI] 35.0-35.9, adult; Z91.14 Patient's other noncompliance with medication regimen; E11.22 Type 2 diabetes mellitus with diabetic chronic kidney disease; I12.9 Hypertensive chronic kidney disease with stage 1 through stage 4 chronic kidney disease, or unspecified chronic kidney disease; N18.2 Chronic kidney disease, stage 2 (mild); E11.42 Type 2 diabetes mellitus with diabetic polyneuropathy; Z86.73 Personal history of transient ischemic attack (TIA), and cerebral infarction without residual deficits; E78.00 Pure hypercholesterolemia, unspecified; Z79.82 Long term (current) use of aspirin; Z82.49 Family history of ischemic heart disease and other diseases of the circulatory system; Z83.3 Family history of diabetes mellitus
CPT/HCPCS: 13160; 12345; 36416; 82962; J0690; J1815; J2704; J3370; J3490; J7030

== ENCOUNTER → 2019-11-29 10:44 | Outpatient (BNVA) | payer MEDICARE, SELFPAY | PROVIDERS: PCP Family Medicine; Visit Provider Internal Medicine | DX: E11.22 Type 2 diabetes mellitus with diabetic chronic kidney disease (principal); N18.2 Chronic kidney disease, stage 2 (mild); E11.65 Type 2 diabetes mellitus with hyperglycemia; Z79.4 Long term (current) use of insulin; L97.323 Non-pressure chronic ulcer of left ankle with necrosis of muscle | CPT/HCPCS: 99214 ==

== ENCOUNTER → 2020-02-11 09:13 | Outpatient (BNVA) | payer MEDICARE, SELFPAY | PROVIDERS: PCP Family Medicine; Visit Provider Internal Medicine | DX: E11.22 Type 2 diabetes mellitus with diabetic chronic kidney disease (principal); N18.2 Chronic kidney disease, stage 2 (mild); E11.649 Type 2 diabetes mellitus with hypoglycemia without coma; E11.65 Type 2 diabetes mellitus with hyperglycemia; Z79.4 Long term (current) use of insulin; E78.00 Pure hypercholesterolemia, unspecified; I10 Essential (primary) hypertension; L97.323 Non-pressure chronic ulcer of left ankle with necrosis of muscle | CPT/HCPCS: 99215 ==

== ENCOUNTER → 2020-02-26 09:32 | Outpatient (BNVA) | payer MEDICARE, SELFPAY | PROVIDERS: PCP Family Medicine; Visit Provider Podiatrist Foot & Ankle Surgery | DX: L97.512 Non-pressure chronic ulcer of other part of right foot with fat layer exposed (principal); Z89.431 Acquired absence of right foot; E11.65 Type 2 diabetes mellitus with hyperglycemia; Z79.4 Long term (current) use of insulin; E11.22 Type 2 diabetes mellitus with diabetic chronic kidney disease; N18.2 Chronic kidney disease, stage 2 (mild) | CPT/HCPCS: 73630 ==

== ENCOUNTER → 2020-03-11 09:52 | Outpatient (BNVA) | payer MEDICARE, SELFPAY | PROVIDERS: PCP Family Medicine; Visit Provider Podiatrist Foot & Ankle Surgery | DX: Z89.431 Acquired absence of right foot (principal); L97.512 Non-pressure chronic ulcer of other part of right foot with fat layer exposed | CPT/HCPCS: 73630 ==

== ENCOUNTER → 2020-04-23 14:37 | Outpatient (BNVA) | payer MEDICARE, SELFPAY | PROVIDERS: PCP Family Medicine; Visit Provider Podiatrist Foot & Ankle Surgery | DX: E11.65 Type 2 diabetes mellitus with hyperglycemia (principal); Z79.4 Long term (current) use of insulin; E11.22 Type 2 diabetes mellitus with diabetic chronic kidney disease; N18.2 Chronic kidney disease, stage 2 (mild); Z89.431 Acquired absence of right foot; L97.512 Non-pressure chronic ulcer of other part of right foot with fat layer exposed; E11.621 Type 2 diabetes mellitus with foot ulcer | CPT/HCPCS: 73630 ==

== ENCOUNTER → 2020-04-28 10:35 | Outpatient (BNVA) | payer MEDICARE, SELFPAY | PROVIDERS: PCP Family Medicine; Visit Provider Internal Medicine | DX: E11.22 Type 2 diabetes mellitus with diabetic chronic kidney disease (principal); N18.2 Chronic kidney disease, stage 2 (mild); E11.649 Type 2 diabetes mellitus with hypoglycemia without coma; E11.65 Type 2 diabetes mellitus with hyperglycemia; Z79.4 Long term (current) use of insulin; E78.00 Pure hypercholesterolemia, unspecified; I10 Essential (primary) hypertension; L97.323 Non-pressure chronic ulcer of left ankle with necrosis of muscle | CPT/HCPCS: 99215 ==

== ENCOUNTER → 2020-06-02 12:07 | Outpatient (BNVA) | payer MEDICARE, SELFPAY | PROVIDERS: PCP Family Medicine; Visit Provider Podiatrist Foot & Ankle Surgery | DX: Z11.52 Encounter for screening for COVID-19 (principal); E11.22 Type 2 diabetes mellitus with diabetic chronic kidney disease; E11.649 Type 2 diabetes mellitus with hypoglycemia without coma; E11.65 Type 2 diabetes mellitus with hyperglycemia; E78.00 Pure hypercholesterolemia, unspecified; I10 Essential (primary) hypertension; L97.323 Non-pressure chronic ulcer of left ankle with necrosis of muscle; L97.512 Non-pressure chronic ulcer of other part of right foot with fat layer exposed; N18.2 Chronic kidney disease, stage 2 (mild); Z79.4 Long term (current) use of insulin; Z89.431 Acquired absence of right foot | CPT/HCPCS: 87635 ==

== ENCOUNTER 2020-06-05 08:30 | Day surgery (SDC) | payer MEDICARE, SELFPAY ==
[2020-06-05 08:55] VITALS: BP 151/92; PULSE 86; RESP 18; TEMP 36.4; O2SAT 95
[2020-06-05 09:11] LABS: Glucose Point of Care 360 mg/dL (70-110)
[2020-06-05] MEDS: sodium chloride 0.9% 1,000 ML 30 ML IV (09:16)
[2020-06-05] MEDS: insulin regular-human 100 units/1 mL 10 UNIT IVP (09:41)
--- NOTE | 2020-06-05 10:41 | P.HPUD_ITS ---
Surgery/Procedure H&P Update DATE OF PROCEDURE: June 05, 2020 DATE H&P PERFORMED: 06/02/20 H&P UPDATE INFORMATION: I have reviewed H&P completed within last 30 days, I have examined patient prior to procedure, No changes to prior documentation and H&P is in [facility] [place] EMR on date indicated PREOP DIAGNOSIS: Right ankle equinus, right foot ulcer PLANNED PROCEDURE: Operation Date: 06/05/20 10:00 Proposed Procedures p Tendon Achilles lengthening 08117 [id number] 50861 L97.512 Z89.431(Right) - Josh Archer DPM s wound bed preparation and application of biologic skin substitute all left lower extremity(Right) - Josh Archer DPM
[2020-06-05] MEDS: lidocaine 1% INJ 20 mL 10 ML SUBCUT (11:18)
[2020-06-05 11:27] VITALS: BP 132/77; PULSE 84; RESP 18; TEMP 36.2; O2SAT 98
[2020-06-05 11:30] VITALS: BP 133/78; PULSE 83; RESP 17; O2SAT 96
[2020-06-05 11:35] VITALS: BP 126/76; PULSE 80; RESP 16; O2SAT 97
[2020-06-05 11:40] VITALS: BP 116/81; PULSE 84; RESP 18; TEMP 36.6; O2SAT 98
[2020-06-05 11:51] VITALS: BP 121/72; PULSE 80; RESP 18; TEMP 36.6; O2SAT 95
--- NOTE | 2020-06-05 12:23 | P.ANESASSM_ITS ---
Pre-Anesthetic Assessment Pre-Anesthetic Assessment: Height/Weight: Height 79.4 m Temp Pulse Resp BP Pulse Ox 97.9 F 80 18 121/72 95 06/05/20 11:51 06/05/20 11:51 06/05/20 11:51 06/05/20 11:51 06/05/20 11:51 Preop Diagnosis: Right ankle equinus, right foot ulcer Proposed Procedure: Operation Date: 06/05/20 10:00 Proposed Procedures p Tendon Achilles lengthening 53681 30138 73842 L97.512 Z89.431(Right) - Josh Archer DPM s wound bed preparation and application of biologic skin substitute all left lower extremity(Right) - Josh Archer DPM Was Beta Philippe taken within 24 hours: N/A Was Clonidine taken within 24 hours: N/A Last intake: Intake Last Liquid Date 06/04/20 Last Liquid Time 23:45 Last Solid Date 06/04/20 Last Solid Time 21:00 Social: Social History: No alcohol and No tobacco Exam: Pre-Anes Outpt Exam: alert, oriented x 3, clear to auscultation bilat erally and regular rate & rhythm Airway: Submandibular: WNL Cervical ROM: WNL MP: 2 Dentition: Full CV/HEM: CV/HEM: HTN : : Chronic renal Insufficiency Metabolic: Metabolic: DM (Poorly controlled) and Morbid obesity Neuropsych: Neuropsych: Neuropathy Anesthetic Plan: ASA status: 3 Anesthesia: MAC Risk of > 500 ml blood loss (7ml/kg in children): No Meds/Allergies Current Medications: Current Medications Generic Name Dose Route Start Last Admin Trade Name Freq PRN Reason Stop Dose Admin Sodium Chloride 1,000 mls @ 30 ml s/hr 06/05/20 09:00 06/05/20 09:16 Sodium Chloride 0.9% IV 06/06/20 08:59 30 mls/hr .Q24H LASHELL Administration PFSH Anesthesia PFSH: Medical History CKD stage 2 due to type 2 diabetes mellitus -CKD stage 2, Diabetes mellitus with hyperglycemia, with long-term current use of insulin Diabetic peripheral neuropathy associated with type 2 diabetes mellitus -on gabapentin History of stroke hx of embolic CVA in 2006 -on ASA, statin Hypercholesteremia Hypertension Morbid obesity -BMI-36 kg/m2 Onychodystrophy Surgical History Amputation of right index finger in 2011 History of amputation of right foot History of knee surgery bilateral History of transmetatarsal amputation of right foot Family History Father CAD (coronary artery disease) Mother Diabetes Other Stroke Social History Smoking and tobacco status: current every day smoker smokeless tobacco Quit status (tobacco): not considering quitting Second hand smoke exposure: No Alcohol intake: never Lives independently: Yes Marital status: History of recent travel: No Data Anesthesia Other Labs: Laboratory Results - last 48 hr 06/05/20 09:07 POC Glucose 360 H Cardiac Studies: No Data to Display
--- NOTE | 2020-06-05 12:24 | ANE.PACU2 ---
Inpatient post-anesthesia follow up: Airway intact: Yes Vital signs: Temperature 97.9 F Pulse Rate 80 Respiratory Rate 18 Blood Pressure 121/72 Pulse Oximetry 95 Oxygen Delivery Me thod Room Air Oxygen Flow Rate Fraction of Inspir ed Oxygen Hydration adequate: Yes Nausea and vomiting: No Pain level: 1 Mental status: Baseline
--- NOTE | 2020-06-07 08:31 | PM.OP ---
Operative Report Date of procedure: June 05, 2020 Pre-op Diagnosis: Right ankle equinus, right foot ulcer Procedure Done: Right Achilles tendon lengthening. Wound bed preparation and application of biologic graft right foot. CPT codes 70890, 60605 and 02495 Implants: 4-0 nylon. Arthrex biologic skin graft substitute, amnion. Surgeon: Josh Archer D.P.M. Account Coordinator: See intraoperative documentation Anesthesia: MAC Estimated blood loss: Less than 10 mL Tourniquet time: None Condition: stable Disposition: PACU Brief History: Patient has had a recalcitrant wound at the right plantar foot with ankle equinus contracture. He has failed wound care modalities of offloading, serial debridement and daily dressing changes as well as antibiotics. Recommended Achilles tendon lengthening, wound bed preparation and application of biologic graft. Risks include pain, bleeding, numbness, infection, tendon rupture, Achilles tendon rupture and weakness. Transfer pressure and transfer lesions, failure to heal current wound and need for further surgical debridement and possible risk for amputation. Patient has been n.p.o. since midnight, he was interviewed preoperatively by myself his life partner was present. Informed consent signed by the patient and his life partner and myself. I initialed his left foot. No guarantees written, expressed or implied. Procedure: Under mild sedation the patient was brought to the operating room and placed on the operating table in supine position. A timeout is performed. Anesthesia was then administered by the anesthesia service. Local anesthesia injected by myself 10 cc in a proximal field block of the left posterior leg near the myotendinous juncture of the Achilles tendon. Left lower extremity was then scrubbed, prepped and draped utilizing normal aseptic technique. No tourniquet utilized. Attention was directed to the left Achilles tendon where a triple hemisection was performed percutaneously starting 1.5 cm proximal to the insertion of the left Achilles tendon transecting the medial half of the Achilles with a 15 blade followed by a more proximal incision 1.5 cm with a lateral hemisection and a final third percutaneous stab incision 1.5 cm proximal to the last with a medial hemisection. Incisions were flushed with saline solution and closed with 4-0 nylon. There was an audible and visible and physical release of the Achilles tendon was at length and addressing the equinus component with improved ankle joint dorsiflexion. Attention was then directed to the left plantar foot foot ulceration measures 1.8 cm x 1.8 cm x 0.3 cm predebridement. Circumferentially the entire margin was excised sharply with a 15 blade to healthy bleeding tissue followed by debridement of the wound base post debridement measurements were 2 cm x 2 cm x 0.3 cm sharp debridement was performed of devitalized epidermis, dermis, subcutaneous tissue and fat layer. Wound bed was then flushed with saline solution followed by application of Arthrex amnion biologic graft substitute. This was secured by adhesive dressing with absorbent material provided by [employer]. Cast padding and Cam boot applied to the left lower extremity. Patient tolerated procedure and anesthesia well and was transferred to the PACU with vital signs stable vascular status intact. Following a period of postoperative monitoring he will be discharged home I advised him to remain strict nonweightbearing to left lower extremity. Noncompliance with weightbearing status may result in Achilles tendon rupture and nonhealing of the left foot ulcer.
== END 2020-06-05 12:20 | disposition home or self-care (01) ==
PROVIDERS: PCP Family Medicine; Visit Provider Podiatrist Foot & Ankle Surgery
PROC: (CPT 28261; principal; 2020-06-05 09:50)
PROC: (CPT 15004; 2020-06-05 09:50)
DX: L97.512 Non-pressure chronic ulcer of other part of right foot with fat layer exposed (principal); Z89.431 Acquired absence of right foot; E11.65 Type 2 diabetes mellitus with hyperglycemia; Z79.4 Long term (current) use of insulin; E11.22 Type 2 diabetes mellitus with diabetic chronic kidney disease; N18.2 Chronic kidney disease, stage 2 (mild)
CPT/HCPCS: 15004; 15275; 27685; 36416; 82962; 96365; 96374; C1762; J0690; J1815; J2250; J2704; J3490; J7030

== ENCOUNTER → 2020-12-30 10:52 | Outpatient (BNVA) | payer MEDICARE, SELFPAY | PROVIDERS: PCP Family Medicine; Visit Provider Internal Medicine | DX: E11.65 Type 2 diabetes mellitus with hyperglycemia (principal); E11.22 Type 2 diabetes mellitus with diabetic chronic kidney disease; N18.2 Chronic kidney disease, stage 2 (mild); E78.00 Pure hypercholesterolemia, unspecified; Z79.4 Long term (current) use of insulin | CPT/HCPCS: 99214 ==

== ENCOUNTER → 2021-04-01 10:18 | Outpatient (BNVA) | payer MEDICARE, SELFPAY | PROVIDERS: PCP Family Medicine; Visit Provider Internal Medicine | DX: E11.65 Type 2 diabetes mellitus with hyperglycemia (principal); E11.22 Type 2 diabetes mellitus with diabetic chronic kidney disease; N18.2 Chronic kidney disease, stage 2 (mild); E78.00 Pure hypercholesterolemia, unspecified; Z79.4 Long term (current) use of insulin | CPT/HCPCS: 99214 ==

== ENCOUNTER → 2021-06-23 09:26 | Outpatient (BNVA) | payer MEDICARE, SELFPAY | PROVIDERS: PCP Family Medicine; Visit Provider Family Medicine | DX: E66.01 Morbid (severe) obesity due to excess calories (principal); E11.69 Type 2 diabetes mellitus with other specified complication; I10 Essential (primary) hypertension; E78.1 Pure hyperglyceridemia | CPT/HCPCS: 80053; 80061; 83036 ==